=== PATIENT | female | born 1965 | race Caucasian/White ===

== ENCOUNTER 2024-01-14 09:36 | Outpatient (POV) | payer OTHER, SELFPAY ==
[2024-01-14 09:57] VITALS: BP 135/86; PULSE 85; RESP 18; O2SAT 94; BMI 30.2
--- NOTE | 2024-01-14 11:23 | EXP.PAIN.OV ---
HPI Data of Consult Patient: new to practice Consult date: 01/14/24 Requesting Physician: Marcelina Goetz APRN Primary Care Provider: Referral Provider, MD Consult Narrative Reason for consult: Bilateral knee pain History of present illness: Ms. Campoverde is a 58 year old female who presents today as a new patient. She [place] [facility] [place] Today she rates her pain an 8 out of 10. Patient states her pain is all in her bilateral knees with the left being worse than the right. She states this has been going on for at least over a year unrelated to any specific trauma or injury. She does state that she did end up having a left meniscus repair in the past however did not really seem like it has given significant improvement. Patient has tried physical therapy multiple times with her last sessions about 1 to 2 months ago. She states this seemed to make her pain worse as well as chiropractor therapy. She has tried oral medications along with heat and ice and topicals with minimal changes. Patient does state that she has had injections in the past that were cortisone and that these did seem to help somewhat. Patient states has been at least 6 months since she has had these. She states that her insurance was submitted for a gel injection however they would not cover this. Patient does states she is currently on Flexeril and gabapentin and that this really just seems to help her sleep. She does state the pain is constant and interrupts her ability to perform activities of daily living such as cooking and cleaning. Her Braxton has been reviewed and is appropriate. CC: Marcelina Goetz APRN [facility] Disclaimer: The information contained in this section may have been updated after the patient was seen, as this information can be updated by other users. Medical History (Updated 01/14/24 @ 11:26 by Marcelina Goetz APRN) Vitamin D deficiency Vitamin B12 deficiency Diabetes mellitus Osteoporosis Fibromyalgia Migraines Liver disease HTN (hypertension) HLD (hyperlipidemia) GERD (gastroesophageal reflux disease) Chronic kidney disease Arthritis Family History (Updated 01/14/24 @ 10:38 by Janette Dias RN) Other COPD (chronic obstructive pulmonary disease) Diabetes Heart disease Hyperlipidemia Hypertension Lung cancer Social History (Updated 01/14/24 @ 10:41 by Janette Dias RN) Smoking Status: Never smoker alcohol intake: never current occupational status: other Travel in the last 8 weeks: None Review of Systems Review of Systems Review of systems:: pertinent systems reviewed and negative unless documented below Review of systems (narrative): Review of Systems: General: No recent weight changes, no fever, no sleep disturbances Respiratory: No cough, no shortness of air, no recurring pulmonary infections Cardiovascular/peripheral vascular: No chest pain, no palpitations, no edema, no shortness of breath Gastrointestinal: No new onset incontinence, normal bowel movements reported Genitourinary: No new onset incontinence Musculoskeletal: [Bilateral knee pain Psychiatric: [Normal mood/affect] Neurological: [Denies weakness in extremities], [denies balance issues] Meds Home Medications and Allergies Home Medications ?Medication ?Instructions ?Recorded ?Confirmed ?Type aspirin 81 mg chewable tablet 81 mg PO DAILY Blood Thinner 01/14/24 01/14/24 History atorvastatin 20 mg tablet 20 mg PO DAILY Cholesterol 01/14/24 01/14/24 History cyclobenzaprine 10 mg tablet 10 mg PO BID Pain 01/14/24 01/14/24 History diclofenac sodium 1 % topical gel 1 - 2 g topical BID Pain 01/14/24 01/14/24 History duloxetine 60 mg capsule,delayed 60 mg PO DAILY MOOD 01/14/24 01/14/24 History release gabapentin 300 mg capsule 300 mg PO DIRECTED Pain 01/14/24 01/14/24 History hydrochlorothiazide 25 mg tablet 12.5 mg PO DAILY Fluid 01/14/24 01/14/24 History metformin 500 mg tablet,extended 1,000 mg PO DAILY Diabetes 01/14/24 01/14/24 History release 24 hr omeprazole 20 mg capsule,delayed 20 mg PO DAILY STOMACH 01/14/24 01/14/24 History release semaglutide 0.25 mg or 0.5 mg (2 0.25 - 0.5 mg SQ DIRECTED 01/14/24 01/14/24 History mg/3 mL) subcutaneous pen injector Diabetes (Ozempic) New Prescriptions to Start Prescriptions: Allergies Allergy/AdvReac Type Severity Reaction Status Date / Time No Known Allergies Allergy Verified 01/14/24 10:41 Objective Vital signs: Pulse Resp BP Pulse Ox O2 Del Method 85 18 135/86 94 L Room Air 01/14/24 09:57 01/14/24 09:57 01/14/24 09:57 01/14/24 09:57 11/04/24 09:57 Narrative: Physical Exam: General: Alert and oriented x3, no acute distress, pleasant and cooperative Lungs: Respirations even and unlabored, symmetrical chest expansion Eyes: PERRL Musculoskeletal: Flexion and extension of bilateral knees somewhat guarded secondary to pain, [antalgic gait noted] Neurological: Speech clear, no gross sensory deficit Assessment and Plan *Assessment and plan (1) Bilateral knee pain: Status: Acute Qualifiers: Chronicity: chronic Qualified Code(s): M25.561 - Pain in right knee; M25.562 - Pain in left knee; G89.29 - Other chronic pain Category: Medical Code(s): M25.561 - Pain in right knee; M25.562 - Pain in left knee Plan Patient is experiencing significant pain in her bilateral knees with limited range of motion. I did discuss with the patient that we can do additional injection therapy such as the intra-articular injection or infrapatellar nerve blocks. Risk and benefits were discussed with the patient and since she has been about 6 months from having these injections I am recommending we start with the intra-articular. Risk and benefits were discussed with patient and she would like to proceed forward with this plan of care. Patient has tried and failed conservative therapy including chiropractor therapy, physical therapy and continued at home stretching exercise for longer than 12 weeks. Patient will also be ordered a compounded cream. Patient will be scheduled for bilateral intra-articular knee injections. These injections will be done without fluoroscopic guidance or ultrasound. Patient has been instructed to contact the clinic with any concerns before the next appointment. Dr. Sanchez has reviewed this note and agrees with this plan of care. This note was dictated using voice recognition software and make contain errors or omissions. All injections are used with Lidocaine or Bupivacaine and Depo Medrol.
== END 2024-01-14 23:59 | disposition home or self-care (01) ==
PROVIDERS: Visit Provider Nurse Practitioner Family
DX: M25.561 Pain in right knee (principal); M25.562 Pain in left knee; G89.29 Other chronic pain; Z73.89 Other problems related to life management difficulty
CPT/HCPCS: 99202; G0463

== ENCOUNTER 2024-03-25 09:11 | Day surgery (SDC) | payer OTHER, SELFPAY ==
[2024-03-25 09:24] VITALS: BP 184/113; PULSE 67; RESP 18; TEMP 36.8; O2SAT 97; BMI 30.7
--- NOTE | 2024-03-25 09:48 | EXP.PAIN.PRO ---
Procedure Date: 03/25/24 Time: 09:50 Anesthesiologist:: Fritz Rivera CRNA Complications:: None Pre-procedure Diagnosis:: DJD bilateral knee. Chronic bilateral knee pain. Post-procedure Diagnosis:: Same Indications for Procedure:: Patient is a pleasant 58-year-old female who comes our clinic today for bilateral intra-articular knee injections. She describes bilateral knee pain as constant, dull, aching. She rates her pain 8/10. She reports having difficulty with ambulation. Difficulty with flexion and extension. Procedure Details:: Details of the procedure explained to the patient. The patient taken procedure room placed in the sitting position. The over the right knee was cleaned using chlorhexidine as a cleansing solution. Using a 22-gauge inch and half needle the right knee joint was accessed from the anterior lateral position. After negative aspiration 4 cc of 1% lidocaine +4 cc of 0.25% Marcaine and 40 mg of Depo-Medrol was injected. Patient tolerated procedure without difficulty. There are no complications. Details of the procedure explained to the patient. The patient taken procedure room placed in the sitting position. The over the left knee was cleaned using chlorhexidine as a cleansing solution. Using a 22-gauge inch and half needle the left knee joint was accessed from the anterior lateral position. After negative aspiration 4 cc of 1% lidocaine +4 cc of 0.25% Marcaine and 40 mg of Depo-Medrol was injected. Patient tolerated procedure without difficulty. There are no complications. Plan and Disposition:: Patient was discharged without incident.
[2024-03-25] MEDS: BUPIVACAINE 0.25% 10ML INJ 25 MG IJ (09:49)
[2024-03-25 09:50] VITALS: BP 186/99; PULSE 67; RESP 18; O2SAT 96
[2024-03-25] MEDS: LIDOCAINE 1% 5ML PF VIAL 5 ML (09:50)
[2024-03-25] MEDS: methylPREDNISolone ACETATE 80MG/ML VIAL 80 MG (09:50)
[2024-03-25 09:52] VITALS: BP 180/90; PULSE 68; RESP 18; O2SAT 96
[2024-03-25 10:03] VITALS: BP 162/99; PULSE 66; RESP 18; O2SAT 96
== END 2024-03-25 10:03 | disposition home or self-care (01) ==
PROVIDERS: Visit Provider Nurse Anesthetist, Certified Registered
DX: M17.0 Bilateral primary osteoarthritis of knee (principal); M25.561 Pain in right knee; M25.562 Pain in left knee; G89.29 Other chronic pain
CPT/HCPCS: 20610; J1010

== ENCOUNTER 2024-04-07 14:48 | Outpatient (POV) | payer OTHER, SELFPAY ==
[2024-04-07 15:50] VITALS: BP 155/97; PULSE 83; RESP 14; O2SAT 97; BMI 30.7
--- NOTE | 2024-04-07 16:15 | EXP.PAIN.SOA ---
[facility] Disclaimer: The information contained in this section may have been updated after the patient was seen, as this information can be updated by other users. Medical History (Updated 01/14/24 @ 11:26 by Marcelina Goetz APRN) Vitamin D deficiency Vitamin B12 deficiency Diabetes mellitus Osteoporosis Fibromyalgia Migraines Liver disease HTN (hypertension) HLD (hyperlipidemia) GERD (gastroesophageal reflux disease) Chronic kidney disease Arthritis Family History (Updated 01/14/24 @ 10:38 by Janette Dias RN) Other COPD (chronic obstructive pulmonary disease) Diabetes Heart disease Hyperlipidemia Hypertension Lung cancer Social History (Updated 01/14/24 @ 10:41 by Janette Dias RN) Smoking Status: Never smoker alcohol intake: never current occupational status: other Travel in the last 8 weeks: None PM Subjective & Objective Subjective Subjective:: Patient is a pleasant 58-year-old female who presents today for follow-up of bilateral intra-articular knee injections on 03/25/2024. Today she rates her pain a 2 out of 10. She states that she has had at least 90% improvement following these injections and feels like they are still working well. Patient states she has had significant improved function with overall decreased pain. Patient states that she did get the compounded cream and states it did so so however she has not needed to use it since having injections. Her Braxton has been reviewed and is appropriate. Review of Systems: General: No recent weight changes, no fever, no sleep disturbances Respiratory: No cough, no shortness of air, no recurring pulmonary infections Cardiovascular/peripheral vascular: No chest pain, no palpitations, no edema, no shortness of breath Gastrointestinal: No new onset incontinence, normal bowel movements reported Genitourinary: No new onset incontinence Musculoskeletal: Bilateral knee pain Psychiatric: [Normal mood/affect] Neurological: [Denies weakness in extremities], [denies balance issues] Pain at rest (0-10 scale): 2 Objective Objective:: Physical Exam: General: Alert and oriented x3, no acute distress, pleasant and cooperative Lungs: Respirations even and unlabored, symmetrical chest expansion Eyes: PERRL Musculoskeletal: Flexion and extension of bilateral knees somewhat guarded secondary to pain, [antalgic gait noted] Neurological: Speech clear, no gross sensory deficit Has patient had previous pain injection?: Yes Percent improvement in pain since last injection: 90% Conservative treatment options previously tried: Home exercise plan Length of treatment: Longer than 12 weeks Meds Home Medications and Allergies Home Medications ?Medication ?Instructions ?Recorded ?Confirmed ?Type aspirin 81 mg chewable tablet 81 mg PO DAILY Blood Thinner 01/14/24 04/07/24 History atorvastatin 20 mg tablet 20 mg PO DAILY Cholesterol 01/14/24 04/07/24 History cyclobenzaprine 10 mg tablet 10 mg PO BID Pain 01/14/24 04/07/24 History diclofenac sodium 1 % topical gel 1 - 2 g topical BID Pain 01/14/24 04/07/24 History duloxetine 60 mg capsule,delayed 60 mg PO DAILY MOOD 01/14/24 04/07/24 History release gabapentin 300 mg capsule 300 mg PO DIRECTED Pain 01/14/24 04/07/24 History hydrochlorothiazide 25 mg tablet 12.5 mg PO DAILY Fluid 01/14/24 04/07/24 History metformin 500 mg tablet,extended 1,000 mg PO DAILY Diabetes 01/14/24 04/07/24 History release 24 hr omeprazole 20 mg capsule,delayed 20 mg PO DAILY STOMACH 01/14/24 04/07/24 History release semaglutide 0.25 mg or 0.5 mg (2 0.25 - 0.5 mg SQ DIRECTED 01/14/24 04/07/24 History mg/3 mL) subcutaneous pen injector Diabetes (Ozempic) New Prescriptions to Start Prescriptions: Allergies Allergy/AdvReac Type Severity Reaction Status Date / Time No Known Allergies Allergy Verified 01/14/24 10:41 Assessment and Plan *Assessment and plan (1) Bilateral knee pain: Status: Acute Qualifiers: Chronicity: chronic Qualified Code(s): M25.561 - Pain in right knee; M25.562 - Pain in left knee; G89.29 - Other chronic pain Category: Medical Code(s): M25.561 - Pain in right knee; M25.562 - Pain in left knee Plan Patient has had significant improvement and does not require any additional injection therapy at this time. Patient will return to clinic in 6 weeks for reevaluation of symptoms and plan of care. Patient has been instructed to contact the clinic with any concerns before the next appointment. Dr. Sanchez has reviewed this note and agrees with this plan of care. This note was dictated using voice recognition software and make contain errors or omissions. All injections are used with Lidocaine, Bupivacaine and Depo Medrol. Occasionally urine drug screen is needed to verify patient's compliance with our office pain contract. This is ordered based off specific treatments related to chronic pain with the potential to abuse certain medications.
== END 2024-04-07 23:59 | disposition home or self-care (01) ==
LOC: SC.PAIN 14:48
PROVIDERS: PCP Family Medicine; Visit Provider Nurse Practitioner Family
DX: M25.561 Pain in right knee (principal); M25.562 Pain in left knee; G89.29 Other chronic pain
CPT/HCPCS: 99212; G0463

== ENCOUNTER 2024-05-19 09:27 | Outpatient (POV) | payer OTHER, SELFPAY ==
--- NOTE | 2024-05-19 09:56 | A.OFFVIS_ITS ---
[facility] Disclaimer: The information contained in this section may have been updated after the patient was seen, as this information can be updated by other users. Medical History (Updated 05/19/24 @ 09:59 by Marcelina Goetz APRN) Vitamin D deficiency Vitamin B12 deficiency Diabetes mellitus Osteoporosis Fibromyalgia Migraines Liver disease HTN (hypertension) HLD (hyperlipidemia) GERD (gastroesophageal reflux disease) Chronic kidney disease Arthritis Family History (Updated 01/14/24 @ 10:38 by Janette Dias RN) Other COPD (chronic obstructive pulmonary disease) Diabetes Heart disease Hyperlipidemia Hypertension Lung cancer Social History (Updated 01/14/24 @ 10:41 by Janette Dias RN) Smoking Status: Never smoker alcohol intake: never current occupational status: other Travel in the last 8 weeks: None PM Subjective & Objective Subjective Subjective:: Patient is a pleasant 58-year-old female who presents today for increasing pain. She rates her left knee pain a 4 out of 10 but does state that she is having chronic pain in her right shoulder and rates that a 5 out of 10. Patient states this is not a new injury or fall. She states that she has had chronic pain in this joint for longer than 6 months if not more. Patient does state that it is a chronic achy sensation that is worse with increased activity or movement. 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 She states that she was going to rheumatology and having injections and that this did provide significant improvement. She states she cannot raise her arm up past a certain point due to the worsening pain. Patient has tried heat and ice, topicals and at home stretching exercise for longer than 12 weeks. Patient does state that it does pop with certain movements. She is interested in any help we may be able to provide as it is interfering with her ability perform activities of daily living such as cooking and cleaning. Her Braxton has been reviewed and is appropriate. Review of Systems: General: No recent weight changes, no fever, no sleep disturbances Respiratory: No cough, no shortness of air, no recurring pulmonary infections Cardiovascular/peripheral vascular: No chest pain, no palpitations, no edema, no shortness of breath Gastrointestinal: No new onset incontinence, normal bowel movements reported Genitourinary: No new onset incontinence Musculoskeletal: Right shoulder pain Psychiatric: [Normal mood/affect] Neurological: [Denies weakness in extremities], [denies balance issues] Pain at rest (0-10 scale): 5 Objective Objective:: Physical Exam: General: Alert and oriented x3, no acute distress, pleasant and cooperative Lungs: Respirations even and unlabored, symmetrical chest expansion Eyes: PERRL Musculoskeletal: Flexion and extension of right shoulder somewhat guarded secondary to pain, popping noted with arm extension Neurological: Speech clear, no gross sensory deficit Has patient had previous pain injection?: No Conservative treatment options previously tried: Home exercise plan Length of treatment: Longer than 12 weeks Meds Home Medications and Allergies Home Medications ?Medication ?Instructions ?Recorded ?Confirmed ?Type aspirin 81 mg chewable tablet 81 mg PO DAILY Blood Thinner 01/14/24 04/07/24 History atorvastatin 20 mg tablet 20 mg PO DAILY Cholesterol 01/14/24 04/07/24 History cyclobenzaprine 10 mg tablet 10 mg PO BID Pain 01/14/24 04/07/24 History diclofenac sodium 1 % topical gel 1 - 2 g topical BID Pain 01/14/24 04/07/24 History duloxetine 60 mg capsule,delayed 60 mg PO DAILY MOOD 01/14/24 04/07/24 History release gabapentin 300 mg capsule 300 mg PO DIRECTED Pain 01/14/24 04/07/24 History hydrochlorothiazide 25 mg tablet 12.5 mg PO DAILY Fluid 01/14/24 04/07/24 History metformin 500 mg tablet,extended 1,000 mg PO DAILY Diabetes 01/14/24 04/07/24 History release 24 hr omeprazole 20 mg capsule,delayed 20 mg PO DAILY STOMACH 01/14/24 04/07/24 History release semaglutide 0.25 mg or 0.5 mg (2 0.25 - 0.5 mg SQ DIRECTED 01/14/24 04/07/24 History mg/3 mL) subcutaneous pen injector Diabetes (Ozempic) New Prescriptions to Start Prescriptions: Allergies Allergy/AdvReac Type Severity Reaction Status Date / Time No Known Allergies Allergy Verified 01/14/24 10:41 Assessment and Plan *Assessment and plan (1) Right shoulder pain: Status: Acute Category: Medical Code(s): M25.511 - Pain in right shoulder Plan Patient is experiencing worsening pain in her right shoulder with limited range of motion and popping with certain positions. I did discuss with the patient that I do believe she would benefit from a intra-articular shoulder injection. Risk and benefits were discussed with patient and she would like to proceed forward with this plan of care. Patient has had chronic right shoulder pain that is going on for longer than a year and has gotten injections from her environmental remediation consultant in the past that did provide significant relief. She does state that it has probably been at least 7 months since her last injection. We will plan on scheduling the patient for a right intra-articular shoulder injection. This will be done without fluoroscopic or ultrasound guidance. Patient has tried and failed conservative therapy including oral medication, heat and ice, topicals, at home stretching exercise for longer than 12 weeks. I did also discuss with the patient in future we will definitely be planning to repeat her previous knee injections. She does state today that the left knee is starting to have a little bit more pain however the right is still doing well. We will follow-up with this at future visits. Patient has been instructed to contact the clinic with any concerns before the next appointment. Dr. Sanchez has reviewed this note and agrees with this plan of care. This note was dictated using voice recognition software and make contain errors or omissions. All injections are used with Lidocaine, Bupivacaine and Depo Medrol. Occasionally urine drug screen is needed to verify patient's compliance with our office pain contract. This is ordered based off specific treatments related to chronic pain with the potential to abuse certain medications.
[2024-05-19 10:07] VITALS: BP 142/90; BP 144/89; PULSE 66; RESP 14; O2SAT 98; BMI 29.8
== END 2024-05-19 23:59 | disposition home or self-care (01) ==
LOC: SC.PAIN 09:28
PROVIDERS: PCP Family Medicine; Visit Provider Nurse Practitioner Family
DX: M25.511 Pain in right shoulder (principal); Z73.89 Other problems related to life management difficulty
CPT/HCPCS: 99212; G0463

== ENCOUNTER 2024-06-17 09:41 | Day surgery (SDC) | payer OTHER, SELFPAY ==
[2024-06-17 09:50] VITALS: BP 115/79; PULSE 89; RESP 17; TEMP 36.9; O2SAT 98; BMI 30.7
[2024-06-17 10:10] VITALS: BP 115/79; PULSE 89; RESP 18; O2SAT 98
[2024-06-17] MEDS: BUPIVACAINE 0.25% 10ML INJ 25 MG IJ (10:10)
[2024-06-17] MEDS: LIDOCAINE 1% 5ML PF VIAL 5 ML (10:10)
[2024-06-17] MEDS: methylPREDNISolone ACETATE 80MG/ML VIAL 80 MG (10:10)
[2024-06-17 10:12] VITALS: BP 115/79; PULSE 89; RESP 18; O2SAT 98
[2024-06-17 10:33] VITALS: BP 128/82; PULSE 64; RESP 17; O2SAT 97
--- NOTE | 2024-06-17 12:44 | EXP.PAIN.PRO ---
Procedure Date: 06/17/24 Time: 09:45 Anesthesiologist:: Fritz Rivera CRNA Complications:: None Pre-procedure Diagnosis:: DJD right shoulder. Chronic right shoulder pain. Post-procedure Diagnosis:: Same. Indications for Procedure:: Patient very pleasant 58-year-old female who comes our clinic today for right intra-articular shoulder injection. Patient describes her right shoulder pain as constant, dull, aching. Patient has 5/5 strength in the right arm. However, limited range of motion secondary to right shoulder pain. She rates her pain 7/10. Patient also reports left knee pain that is constant, dull, sharp, stabbing. She reports meniscal repair several years ago in the left knee. She reports responding very well to intra-articular cortisone in the left knee in the past. However, it has been 6 to 12 months since her last injection in the left knee. Patient has been through several rounds of physical therapy for the left knee pain. Home exercise program. NSAIDs. Acetaminophen. I recommend repeat injection in the left knee of intra-articular cortisone and local anesthetic. Patient wishes to proceed. Procedure Details:: Procedure Details: Right shoulder intra-articular injection Informed consent was obtained risk and benefits of the procedure were explained to the patient. Patient was taken to the procedure room. The right shoulder was prepped using ChloraPrep. A 25-gauge needle was used posteriorly to inject 10 mL bupivacaine 0.25% and Depo-Medrol 40 mg. Patient tolerated procedure well with no complications. Plan and Disposition:: Patient was discharged without incident.
== END 2024-06-17 10:33 | disposition home or self-care (01) ==
LOC: SC.PAINP 09:42
PROVIDERS: PCP Family Medicine; Visit Provider Nurse Anesthetist, Certified Registered
DX: M19.011 Primary osteoarthritis, right shoulder (principal); M25.511 Pain in right shoulder; G89.29 Other chronic pain
CPT/HCPCS: 20610; J1010

== ENCOUNTER 2024-06-30 10:23 | Outpatient (POV) | payer OTHER, SELFPAY ==
--- NOTE | 2024-06-30 11:00 | A.OFFVIS_ITS ---
[facility] Disclaimer: The information contained in this section may have been updated after the patient was seen, as this information can be updated by other users. Medical History (Updated 06/30/24 @ 11:02 by Marcelina Goetz APRN) Vitamin D deficiency Vitamin B12 deficiency Diabetes mellitus Osteoporosis Fibromyalgia Migraines Liver disease HTN (hypertension) HLD (hyperlipidemia) GERD (gastroesophageal reflux disease) Chronic kidney disease Arthritis Family History Other COPD (chronic obstructive pulmonary disease) Diabetes Heart disease Hyperlipidemia Hypertension Lung cancer Social History Smoking Status: Never smoker alcohol intake: never current occupational status: other Travel in the last 8 weeks: None PM Subjective & Objective Subjective Subjective:: Patient is a pleasant 68-year-old female who presents today for follow-up of right intra-articular shoulder injection on 06/17/2024. Patient does rate her pain today 7 out of 10. She does state that she thought that she was getting a left knee injection today and is a little upset based off what she was told. Patient does state that she had at least 80% improvement with the shoulder injection and rates that pain a 2 out of 10 today and states it is doing really well. She does state the 7 out of 10 pain is all related to her left knee. She describes this as an aching, throbbing sensation that is worse with increased ambulation or activity. She states the knee is interfering with her ability to perform activities of daily living such as cooking and cleaning. Patient has had her left knee injected in the past that did provide significant relief and would like to get scheduled for this procedure soon as possible. Patient has continued at home stretching exercise for longer than 12 weeks with no additional changes. Patient has also continued oral medication, heat and ice and topicals including the compounded cream. Her Braxton has been reviewed and is appropriate. Review of Systems: General: No recent weight changes, no fever, no sleep disturbances Respiratory: No cough, no shortness of air, no recurring pulmonary infections Cardiovascular/peripheral vascular: No chest pain, no palpitations, no edema, no shortness of breath Gastrointestinal: No new onset incontinence, normal bowel movements reported Genitourinary: No new onset incontinence Musculoskeletal: Left knee pain Psychiatric: [Normal mood/affect] Neurological: [Denies weakness in extremities], [denies balance issues] Pain at rest (0-10 scale): 7 Objective Objective:: Physical Exam: General: Alert and oriented x3, no acute distress, pleasant and cooperative Lungs: Respirations even and unlabored, symmetrical chest expansion Eyes: PERRL Musculoskeletal: Flexion and extension of left knee somewhat guarded secondary to pain, [antalgic gait noted] Neurological: Speech clear, no gross sensory deficit Has patient had previous pain injection?: Yes Percent improvement in pain since last injection: 80% Conservative treatment options previously tried: Home exercise plan Length of treatment: Longer than 12 weeks Meds Home Medications and Allergies Home Medications ?Medication ?Instructions ?Recorded ?Confirmed ?Type aspirin 81 mg chewable tablet 81 mg PO DAILY Blood Thinner 01/14/24 06/17/24 History atorvastatin 20 mg tablet 20 mg PO DAILY Cholesterol 01/14/24 06/17/24 History cyclobenzaprine 10 mg tablet 10 mg PO BID Pain 01/14/24 06/17/24 History diclofenac sodium 1 % topical gel 1 - 2 g topical BID Pain 01/14/24 06/17/24 History duloxetine 60 mg capsule,delayed 60 mg PO DAILY MOOD 01/14/24 06/17/24 History release gabapentin 300 mg capsule 300 mg PO DIRECTED Pain 01/14/24 06/17/24 History hydrochlorothiazide 25 mg tablet 12.5 mg PO DAILY Fluid 01/14/24 06/17/24 History metformin 500 mg tablet,extended 1,000 mg PO DAILY Diabetes 01/14/24 06/17/24 History release 24 hr omeprazole 20 mg capsule,delayed 20 mg PO DAILY STOMACH 01/14/24 06/17/24 History release semaglutide 0.25 mg or 0.5 mg (2 0.25 - 0.5 mg SQ DIRECTED 01/14/24 06/17/24 History mg/3 mL) subcutaneous pen injector Diabetes (Ozempic) New Prescriptions to Start Prescriptions: Allergies Allergy/AdvReac Type Severity Reaction Status Date / Time No Known Allergies Allergy Verified 06/17/24 09:49 Assessment and Plan *Assessment and plan (1) Left knee pain: Status: Acute Category: Medical Code(s): M25.562 - Pain in left knee Plan Patient is experiencing worsening pain in her left knee with limited range of motion. I did review over with the patient the risk and benefits of repeat intra-articular injection. Patient would like to proceed forward with this plan of care. Patient had her last bilateral knee injections in March that did provide 90% improvement and have worked well up until the last week. She does state that her right knee is still doing wonderful overall and it is just the left giving increased pain. Patient will be scheduled for repeat left knee intra-articular injection. This will be done without fluoroscopic or ultrasound guidance. Patient has continued conservative treatment including oral medication, heat and ice, topicals, at home stretching exercise for longer than 12 weeks. Patient has had chronic knee pain for longer than 6 months. Patient has been instructed to contact the clinic with any concerns before the next appointment. Dr. Sanchez has reviewed this note and agrees with this plan of care. This note was dictated using voice recognition software and make contain errors or omissions. All injections are used with Lidocaine, Bupivacaine and Depo Medrol. Occasionally urine drug screen is needed to verify patient's compliance with our office pain contract. This is ordered based off specific treatments related to chronic pain with the potential to abuse certain medications.
[2024-06-30 12:01] VITALS: BP 117/78; PULSE 70; RESP 18; O2SAT 97; BMI 30.4
== END 2024-06-30 23:59 | disposition home or self-care (01) ==
LOC: SC.PAIN 10:24
PROVIDERS: PCP Family Medicine; Visit Provider Nurse Practitioner Family
DX: M25.562 Pain in left knee (principal); Z73.89 Other problems related to life management difficulty
CPT/HCPCS: 99212; G0463

== ENCOUNTER 2024-07-29 10:06 | Day surgery (SDC) | payer OTHER, SELFPAY ==
[2024-07-29 10:15] VITALS: BP 140/83; PULSE 72; RESP 16; TEMP 36.6; O2SAT 98; BMI 31.3
[2024-07-29] MEDS: LIDOCAINE 1% 5ML PF VIAL 5 ML (10:23)
[2024-07-29] MEDS: BUPIVACAINE 0.25% 10ML INJ 25 MG IJ (10:23)
[2024-07-29] MEDS: DEXAMETHASONE 10MG/ML 1ML VIAL 10 MG (10:23)
[2024-07-29 10:24] VITALS: BP 143/87; PULSE 68; RESP 18; O2SAT 96
[2024-07-29 10:27] VITALS: BP 143/87; PULSE 68; RESP 18; O2SAT 96
--- NOTE | 2024-07-29 10:30 | EXP.PAIN.PRO ---
Procedure Date: 07/29/24 Time: 10:25 Anesthesiologist:: Fritz Rivera CRNA Complications:: None Pre-procedure Diagnosis:: DJD left knee. Chronic left knee pain. Post-procedure Diagnosis:: Same. Indications for Procedure:: Patient is a very pleasant 58-year-old female comes our clinic today for a left intra-articular knee injection of cortisone local anesthetic. Patient describes left knee pain as constant, dull, aching. She has difficulty with ambulation due to left knee pain. She reports responding well to intra-articular cortisone injections in the past. She rates her pain 7/10. Procedure Details:: Details of the procedure explained to the patient. The patient taken procedure room placed in the sitting position. The over the left knee was cleaned using chlorhexidine as a cleansing solution. Using a 22-gauge inch and half needle the left knee joint was accessed from the anterior lateral position. After negative aspiration 4 cc of 1% lidocaine +4 cc of 0.25% Marcaine and 40 mg of Depo-Medrol was injected. Patient tolerated procedure without difficulty. There are no complications. Plan and Disposition:: Patient was discharged without incident.
[2024-07-29 10:40] VITALS: BP 137/70; PULSE 69; RESP 16; O2SAT 98
== END 2024-07-29 10:40 | disposition home or self-care (01) ==
PROVIDERS: PCP Family Medicine; Visit Provider Nurse Anesthetist, Certified Registered
DX: M17.12 Unilateral primary osteoarthritis, left knee (principal); M25.562 Pain in left knee; G89.29 Other chronic pain
CPT/HCPCS: 20610; J1100

== ENCOUNTER 2024-08-18 14:34 | Outpatient (POV) | payer OTHER, SELFPAY ==
--- OUTSIDE RECORDS SUMMARY | 2024-07-17 11:00 | XMS_ITS | Encounter Summary ---
Author Organization [place] [address] Care Team Providers Care Repair Servicer Name Role Phone Moise Mares MD Primary Care Provider [phone] Yu Mullen MD Unavailable [phone] Reason for Visit * Reason Comments Numbness exp more burning and numbness in feet,was seen by a pain doctor Encounter Details Date Type Department Care Team (Late st Contact Info) Description 07/17/2024 11:00 AM EDT Office Visit SEP Neurology [facility] [address] [place] [address] Wendi Villalta MD [id number] [place] [address] Neuropathy (Primary Dx) Social History Tobacco Use Types Packs/Day Years Used Date Smoking Tobacco: Never Passive Smoke Exposure: Never Smokeless Tobacco: Never Tobacco Cessation:Counseling Given: Not Answered Alcohol Use Standard Drinks/Week Comments Not Currently 0 (1 standard drink = 0.6 oz pur e alcohol) < 1x/mo Overall Financial Resource Strain (CARDIA) Answe r Date Recorded How hard is it for you to pa y for the very basics like food, housing, medical care, and heating? Not hard at all 08/22/2021 PHQ-2 Answer Date Recorded PHQ-2 Total Score 0 05/19/2024 [employer] - Occupational Stress Questionnaire Answer Date Recorded Do you feel stress - tense, restless, nervous, or anxious, or unable to sleep at night because your mind is troubled all the time - these days? To some extent 08/22/2021 Exercise Vital Sign Answer Date Recorde d On average, how many days pe r week do you engage in moderate to strenuous exercise (like a brisk walk)? 0 days 08/22/2021 On average, how many minutes do you engage in exercise at this level? 0 min 08/22/2021 Hunger Vital Sign Answer Date Recorded Within the past 12 months, y ou worried that your food would run out before you got the money to buy more. Never true 08/23/19 22 Within the past 12 months, t he food you bought just didn't last and you didn't have money to get more. Never true 08/22/2021 PRAPARE - Transportation Answer Date Re corded In the past 12 months, has l ack of transportation kept you from medical appointments or from getting medications? No 08/10 In the past 12 months, has l ack of transportation kept you from meetings, work, or from getting things needed for daily living? No 08/22/2021 Sexually Active Control Partners Comments Not Currently Male Comments No Sex and Gender Information Value Date Recorded Sex Assigned at Not on file Legal Sex Female 11:19 PM EDT Gender Identity Not on file Sexual Orientation Not on file documented as of this encounter Last Filed Vital Signs Vital Sign Reading Time Taken Comments Blood Pressure 140/90 07/17/2024 10:45 AM EDT Pulse 70 07/17/2024 10:45 AM EDT Temperature 36.5 C (97.7 F) 07/17/2024 10:45 AM EDT Respiratory Rate - - Oxygen Saturation 95% 07/17/2024 10:45 AM EDT Inhaled Oxygen Concentration - - Weight 90.3 kg (199 lb) 07/17/2024 10:45 AM EDT Height 167.6 cm (5' 6 ) 07/17/2024 10:45 AM EDT Body Mass Index 32.12 07/17/2024 10:45 AM EDT documented in this encounter Functional Status * Is the person deaf or does he/she have serious difficulty hearing? Answer Date of Assessment Author No 11/02/2021 9:50 AM EDT Ernesto Bourgeois LPN * Is the person blind or does he/she have serious difficulty seeing even when wearing glasses? Answer Date of Assessment Author No 11/02/2021 9:50 AM Ernesto Randall LPN * Does this person have serious difficulty walking or climbing stairs? Answer Date of Assessment Author No 11/02/2021 9:50 AM Ernesto Randall LPN * Does this person have difficulty dressing or bathing? Answer Date of Assessment Author No 11/02/2021 9:50 AM Ernesto Randall LPN * Because of a physical, mental or emotional condition, does this person have difficulty doing errands alone such as visiting a doctor's office or shopping? Answer Date of Assessment Author No 11/02/2021 9:50 AM Ernesto Randall LPN documented as of this encounter Mental Status * Because of a physical, mental or emotional condition, does this person have serious difficulty concentrating, remembering or making decisions? Answer Entry Date Author No 11/02/2021 9:50 AM Ernesto Randall LPN documented in this encounter Ordered Prescriptions Prescription Sig Dispense Quantity Refills Last Filled Start Date End Date pregabalin (LYRICA) 100 mg Oral CapsuleIndications :Neuropathy Take 1 Capsule by mouth 2 times daily. 60 Capsule 1 07/17/2024 5 pregabalin (LYRICA) 75 mg Oral CapsuleIndications :Neuropathy Take 1 Capsule by mouth 2 times daily for 7 days. 14 Capsule 07/17/2024 5 pregabalin (LYRICA) 50 mg Oral CapsuleIndications :Neuropathy Take 1 Capsule by mouth 2 times daily for 7 days. 14 Capsule 07/17/2024 5 pregabalin (LYRICA) 25 mg Oral CapsuleIndications :Neuropathy Take 1 Capsule by mouth 2 times daily for 7 days. 14 Capsule 07/17/2024 5 documented in this encounter Progress Notes * Wendi Villalta MD - 07/17/2024 11:00 AM EDT History of Presenting Illness Rosario Campoverde is a 58 y.o. female who presents to clinic with a chief complaint of paresthesias. She presented to clinic for routine follow up. Prior History: She reported that around 2018 she began noticing an aching sensation in the lower extremities. She reports that since then she has had progression of the same aching sensation, as well as burning [id number] in the same distribution. She reports that the sensation occurs throughout her lower extremities. She notes that the burning/tingling sensation is worse at night and often transfer from sleeping. She reports that often she will have a stomach sensation but is unable to feel her feet appropriately, she is also had a fall with a significant wrist fracture requiring surgery. She denies any other focal neurologic deficits including vision changes, language issues or paresthesias in the face. She denies any focal motor weakness. She does note that she has pain in her jaw when opening her mouth, but she is waiting to see a dentist for evaluation. She underwent preliminary evaluation for neuropathy, with TSH and B12 within normal limits. Howeverzena was found to have an A1c elevated a 7.1. She reported that both her parents had a history of diabetes and she is tested frequently for this condition. She reports that currently she is just usingdiet to control her A1c and has not started medication. She reports that she has never been on medic ation for neuropathy. She reports that this pain is worse in the evenings, there is no improvement with movement. She does note that alcohol seems to make the pain worse, she stopped drinking alcohol approximately 2 yearsago due to the worsening of the burning pain in her lower extremities. She notes that she initiallythought this was due to walking around his hand hard floors, and so she switched her fall, however these sensations have persisted. PRIOR WORKUP: NCS Summary: Normal left peroneal and tibial motor responses. Normal left sural and superficial peroneal sensory responses. EMG Summary: Normal needle electrode examination of the left lower extremity. MRI of the lumbar spine was performed and did not reveal any significant degenerative disc disease,personal review there was no evidence of focal cord stenosis or compression. 08/23/22 Overall she reports that neuropathy has been relatively unchanged. She continues to take gabapentinwith no significant side effects. She does report that for the most part it has improved pain although she does occasionally have breakthrough pain and it is not completely resolved. She also reportsthat occasionally she has muscle spasms at night. Of note recent A1c was 7.8. 08/29/23 She broke her right foot last August and is just now feeling back to normal. She has been having a lot of pain in her left foot to the point it hurts to touch it. Because she broke her right foot, she doesn't feel as much of the pins and needles feeling in her foot. At the last visit, GBP was increased, which she felt like made the pain better but some days are still really bad. She is now having cramping in both feet as well. The cramping occurs at night about 3x per week and will wake her up. She has been drinking more water to help the cramping. It has been occurring for about six months. She was started Jaurdiance about a year ago. Her A1c is now 6.8. Of note she was also trialed on Ozempic however due to insurance issues this had to be discontinued however she had a positive effectof the weight loss approximately 20 pounds while on the medication. She completed neuropsych testing since last visit for her memory concerns and was told it was related to depression and anxiety. She denies any depression or anxiety symptoms. She is still getting lost when driving at times, has difficulty remembering things (like leaving the stove on), and is struggling to focus. Per review of Dr. Cuadra's report, saw no indication for Alzheimer disease in my evaluation but hertest results did reflect some mild cognitive impairment that is consistent with mild-moderate cerebrovascular disease which is evident on prior brain imaging. While depression and anxiety can also inand of themselves resulting in some impairment to attention/concentration/short-term memory, neither the patient's test profile more her presentation are consistent with a pure psychogenic cause to her memory complaints. I discussed with the patient that cognitive impairment due to cerebrovascular disease is considered one of the progressive conditions associated with aging but, unlike Alzheimer's disease, the associated cognitive decline is rather unpredictable. Therefore, it is important thatshe adopt a healthy lifestyle to minimize the risk of further progression of the cerebrovascular disease. Interval history Since her last visit she feels that she is having slightly more paresthesias which Does Not Control. Does Report Significant Fatigue Related to the Current Dose of Gabapentin. Additionally she has followed up with orthopedics and had surgery on her right ankle, she was back to work within 6 weeks and she is doing very well. She is also established with a pain clinic. She got first injection and plans to follow-up in approximately 2 weeks. Past Medical History: Diagnosis Date Arthritis Chronic kidney disease (CKD) Stage 3 Encounter for blood transfusion Heartburn Hyperlipidemia Hypertension Liver disease Migraines Neuromuscular disorder (HCC) fibromyalgia/polyarthralgia Osteoporosis Post-operative nausea and vomiting Sometimes nausea Small fiber neuropathy est'd with Neuro/Dr Villalta On gabapentin Type 2 diabetes mellitus with hyperglycemia, without long-term current use of insulin (HCC) dx'd 10/2020 Vitamin B12 deficiency Vitamin D deficiency Current Outpatient Medications Medication Sig Dispense Refill alendronate (FOSAMAX) 70 mg Oral Tablet Take 1 Tablet by mouth every 7 days. See admin instructions. 12 Tablet 3 aspirin 81 mg Oral Tablet, Chewable Take 1 Tablet by mouth daily. 30 Tablet 11 atorvastatin (LIPITOR) 20 mg Oral Tablet TAKE 1 TABLET BY MOUTH EVERY DAY 100 Tablet 2 Blood Sugar Diagnostic Misc Strip 1 Strip by Mis.(Non-Drug; Combo Route) route daily. 100 Each 2 cholecalciferol, vitamin D3, 1,000 unit Oral Tablet Take 1 Tab by mouth daily. cyanocobalamin 1,000 mcg tablet Take 1 Tab by mouth daily. 2 cyclobenzaprine (FLEXERIL) 10 mg Oral Tablet TAKE 1 TABLET BY MOUTH TWICE A DAY 180 Tablet 1 dapagliflozin propanediol (FARXIGA) 10 mg Oral Tablet Take 1 Tablet by mouth daily. 90 Tablet 3 diclofenac (VOLTAREN) 1 % Top Gel Apply 2 g topically 2 times daily. DULoxetine (CYMBALTA) 60 mg Oral Capsule, Delayed Release(E.C.) TAKE 1 CAPSULE BY MOUTH EVERY DAY 90 Capsule 0 gabapentin (NEURONTIN) 300 mg Oral Capsule Take 3 Capsules by mouth 2 times daily. 180 Capsule 0 hydroCHLOROthiazide 25 mg Oral Tablet Take 0.5 Tablets by mouth daily. 45 Tablet 0 ibuprofen (ADVIL;MOTRIN) 800 mg Oral Tablet Take 1 Tablet by mouth 3 times daily as needed. 90 Tablet 0 Insulin [place], Disposable, (BD ULTRA-FINE MINI PEN NEEDLE) 31 gauge x 3/16 Mis Needle Subcutaneous (Inject under the skin) 1 Applicator once a week. 30 Each 2 Lancets Mis Misc 1 Each by Mis.(Non-Drug; Combo Route) route daily. 100 Each 2 lisinopriL (PRINIVIL;ZESTRIL) 20 mg Oral Tablet tablet Take 1 Tablet by mouth daily. 90 Tablet 3 metFORMIN (GLUCOPHAGE XR) 500 mg Oral ER 24 hr tablet Take 2 Tablets by mouth 2 times daily (with meals). 360 Tablet 3 omeprazole (PRILOSEC) 20 mg Oral Capsule, Delayed Release(E.C.) TAKE 1 CAPSULE BY MOUTH EVERY DAY 90 Capsule 2 tirzepatide (MOUNJARO) 2.5 mg/0.5 mL SubQ Pen Injector Subcutaneous (Inject under the skin) 2.5 mg once a week. 2 mL 11 No current facility-administered medications for this visit. Social History Socioeconomic History Marital status: Spouse name: Not on file Number of children: Not on file Years of education: Not on file Highest education level: Not on file Occupational History Not on file Tobacco Use Smoking status: Never Passive exposure: Never Smokeless tobacco: Never Vaping Use Vaping status: Never Used Substance and Sexual Activity Alcohol use: Not Currently Comment: < 1x/mo Drug use: No Sexual activity: Not Currently Partners: Male Other Topics Concern Not on file Social History Narrative Not on file Social Drivers of Health Financial Resource Strain: Low Risk (08/22/2021) Overall Financial Resource Strain (CARDIA) Difficulty of Paying Living Expenses: Not hard at all Food Insecurity: No Food Insecurity (08/22/2021) Hunger Vital Sign Worried About Running Out of Food in the Last Year: Never true Ran Out of Food in the Last Year: Never true Transportation Needs: No Transportation Needs (08/22/2021) PRAPARE - Transportation Lack of Transportation (Medical): No Lack of Transportation (Non-Medical): No Physical Activity: Inactive (08/22/2021) Exercise Vital Sign Days of Exercise per Week: 0 days Minutes of Exercise per Session: 0 min Stress: Stress Concern Present (08/22/2021) [employer] - Occupational Stress Questionnaire Feeling of Stress : To some extent Social Connections: Not on file Intimate Partner Violence: Not on file Housing Stability: Not on file Review of Systems Negative except as per HPI Physical Exam Vitals: 07/17/24 1045 BP: 140/90 Pulse: 70 Temp: 97.7 ??F (36.5 ??C) SpO2: 95% General Appearance: This is a well appearing patient, not in distress. HEENT: There are no facial dysmorphic features. SKIN: There is no stigmata for neurocutaneous disorders. Lungs: Nonlaboured breathing, symmetric chest expansion Heart: No central or peripheral cyanosis NEUROLOGICAL EXAMINATION: MENTAL STATUS: Alert and oriented, no dysarthria or aphasia CRANIAL NERVES: Pupils 4mm, equal and reactive to light bilaterally. EOMI. Face symmetric. MOTOR: Strength: RUE: 5/5, RLE: 5/5, LUE: 5/5, LLE: 5/5. Tone is normal, bulk is symmetric. SENSORY: Diminished temperature sensation to mid galvez bilaterally of the lower extremities, slightly diminished vibration at the ankle when compared to the knee, right ankle difficult to assess due to recent surgical intervention and fusion Reflexes diminished throughout but symmetric Assessment and Plan: Rosario Campoverde is a 58 y.o. female who presents to clinic with a chief complaint of paresthesias. She presented for routine follow-up At her initial appointment, She reported progression of aching/burning/pins and needle sensation inher lower extremities since 2018, that appear worse in the evening, and are triggered by any type of fabric touching her lower extremities. General preliminary work-up for neuropathy including TSH, and B12 which were within normal limits, however A1c was elevated. She did have abnormal light chains, she is evaluated by hematology who felt that she had MGUS. She continues to follow with hematology as well as rheumatology. EMG and nerve conduction studies were within normal limits. MRI of the lumbar spine showed no evidence of degenerative disc disease, cord compression or neural foraminal compromise. Based on her history and her clinical exam, it is most consistent with small fiber neuropathy, likely related to underlying diabetesand potentially MGUS. Plan -Given that she is having breakthrough discomfort we discussed transitioning off gabapentin decreasing by 300 mg twice daily every 7 days until off, and initiating pregabalin 25 mg twice daily with up titration to clinical effect, stop at 100 mg twice daily, she will notify the clinic should she have any issues -Continue follow-up with pain clinic, hematology as well as rheumatology -Continue to work with PCP on glycemic control Neuropsychological testing showed vascular changes which have been noted previously on MRI of the brain. No definitive neurodegenerative process was evident on testing. She underwent an MRI in 2013 which was reported as atrophy and small vessel disease images unavailable for review. B12, folic acid, TSH, anti-TPO all been unremarkable. We did discuss optimization of vascular risk factors including aspirin 81 mg once daily. She was encouraged to continue strict glycemic control, along with exercise and a healthy diet Wendi Villalta MD This note was generated using voice recognition technology. It has been reviewed by the undersigned, however, may still contain unintended errors. documented in this encounter Miscellaneous Notes * Patient Instructions - Selin Navarro MA - 07/17/2024 11:00 AM EDT Medication change: Decrease Gabapentin by 1 tablet (300 mg) BID every 7 days until off Week 1- Decrease to 600 mg ( 2 capsule) by mouth twice a day for 7 days Week 2- Decrease to 300 mg ( 1 capsule) by mouth twice a day for 7 days and then stop Pregabalin Week 1 - 25 mg by mouth twice a day for 7 days Week 2- 50 mg by mouth twice a day for 7 days Week 3- 75 mg by mouth twice a day for 7 days Week 4- Goal dose of 100 mg by mouth twice a day documented in this encounter Plan of Treatment Not on file documented as of this encounter Goals Goal Patient Goal Type Associated Problems Recent Progress Patient-Stated? Author Blood Pressure < 140/90 Blood Pressure 140/90(2024 10:45 AM EDT) No Candice Allen LPN Maintain a healthy diet, exercise regularly and maintain an ideal body weight General No Candice Allen LPN BMI (Calculated) < 30 General 32.2(07/18/19 10:45 AM EDT) No Carol Ng MD Not going more than 4-5 hours without eating General On track( 2:44 PM EDT) No Selin Escoto RN Eat within 1-2 hours of waking General On track( 2:44 PM EDT) No Selin Escoto, GENO Keeping carbs at 30-45g per meal, 15g per snack General On track( 2:44 PM EDT) No Selin Escoto RN Check fasting glucose daily and document Lifestyle On track( 022 2:44 PM EDT) No Selin Escoto RN HEMOGLOBIN A1C < 7.0 Result Component 7.3( 5 3:53 PM EDT) No Carol Ng MD documented as of this encounter Visit Diagnoses Diagnosis Neuropathy- Primary Mononeuritis of unspecified site documented in this encounter Discontinued Medications Medication Sig Discontinue Reason Start Date End Da te gabapentin (NEURONTIN) 300 mg Oral CapsuleIndications:Neur opathy Take 3 Capsules by mouth 2 times daily. Cancelled by 06/30/2024 07/17/2024 documented as of this encounter Care Teams Repair Servicer Relationship Specialty Start Date End Date Moise Mares MD [address] [place] [address] [place] [id number] PCP - General Family Medicine 07/10/22 Yu Mullen MD [address] [place] [id number] Medical Oncologist Internal Medicine-Hematology and Oncology 08/07/23 documented as of this encounter
--- OUTSIDE RECORDS SUMMARY | 2024-08-18 14:49 | XMS_ITS | Encounter Summary ---
Author Organization [place] [address] Care Team Providers Care Mold Release Worker Name Role Phone Carol Ng MD Primary Care Provider [phone] Selin Escoto RN Unavailable Unavailable Moise Mares MD Primary Care Provider [phone] uY Mullen MD Unavailable [phone] Encounter Details Date Type Department Care Team (Late st Contact Info) Description 05/01/2019 Orders Only SEP Gastro CV [address] [facility] [address] [place] [address] Justin Delaney MD [address] [place] [address] Social History Tobacco Use Types Packs/Day Years Used Date Smoking Tobacco: Never Smokeless Tobacco: Never Alcohol Use Standard Drinks/Week Comments Yes 0 (1 standard drink = 0.6 oz pur e alcohol) < 1x/mo PHQ-2 Answer Date Recorded PHQ-2 Score 0 08/02/2018 Sexually Active Control Partners Comments Yes Male Comments No Sex and Gender Information Value Date Recorded Sex Assigned at Not on file Legal Sex Female 11:19 PM EDT Gender Identity Not on file Sexual Orientation Not on file documented as of this encounter Functional Status * Is the person deaf or does he/she have serious difficulty hearing? Answer Date of Assessment Author No 05/20/2018 2:12 PM EDT Sunshine Levine LPN * Is the person blind or does he/she have serious difficulty seeing even when wearing glasses? Answer Date of Assessment Author No 05/20/2018 2:12 PM EDT Sunshine Levine LPN * Does this person have serious difficulty walking or climbing stairs? Answer Date of Assessment Author No 05/20/2018 2:12 PM EDT Sunshine Levine LPN * Does this person have difficulty dressing or bathing? Answer Date of Assessment Author No 05/20/2018 2:12 PM EDT Sunshine Levine LPN * Because of a physical, mental or emotional condition, does this person have difficulty doing errands alone such as visiting a doctor's office or shopping? Answer Date of Assessment Author No 05/20/2018 2:12 PM EDT Sunshine Levine LPN documented as of this encounter Mental Status * Because of a physical, mental or emotional condition, does this person have serious difficulty concentrating, remembering or making decisions? Answer Entry Date Author No 05/20/2018 2:12 PM EDT Olimpia Levine LPN documented in this encounter Plan of Treatment Not on file documented as of this encounter Goals Goal Patient Goal Type Associated Problems Recent Progress Patient-Stated? Author Blood Pressure < 140/90 Blood Pressure 140/90(2024 10:45 AM EDT) Candice Little LPN Maintain a healthy diet, exercise regularly and maintain an ideal body weight General No Candice Allen LPN documented as of this encounter Procedures Procedure Name Priority Date/Time Associated Diagnosis Comments [facility] COLONOSCOPY Routine 05/01/2019 8:30 AM EST documented in this encounter Results * [facility] COLONOSCOPY (05/01/2019 8:30 AM EST) 05/01/2019 8:30 AM EST Impressions [facility] - 05/01/2019 8:54 AM EST Polyps (2 mm to 4 mm) in the splenic flexure. (Polypectomy). Internal and external hemorrhoids. Plan: Await pathology results Colonoscopy in 5 or 10 years depending on pathology results. This section is an excerpt of the full report. us Justin Todd MD GI PROCEDURE ORDERABLES Fi nal Result [facility] [address] [place], [place] [id number] documented in this encounter Visit Diagnoses Not on filedocumented in this encounter Care Teams Mold Release Worker Relationship Specialty Start Date End Date Carol Ng MD PCP - General 07/08/10 07/09/22 Moise Mares MD [address] [place] [address] [place] [address] PCP - General Family Medicine 07/10/22 Selin Escoto, RN Conversion Man 08/22/21 12/29/21 Yu Mullen MD [address] [place] [id number] Medical Oncologist Internal Medicine-Hematology and Oncology 08/07/23 documented as of this encounter
--- OUTSIDE RECORDS SUMMARY | 2024-08-18 14:49 | XMS_ITS | Clinical Summary ---
Author Organization Healthcare Address [address] [place] [address] Care Team Providers Care Neurourologist Name Role Phone Pcp, No Primary Care Provider Unavailabl e Medications atorvastatin (Lipitor) 20 MG tablet Take 1 tablet (20 mg) by mouth 1 (one) time each day. 4 Active ASPIRIN 81 MG chewable tablet Chew 1 tablet (81 mg) 1 (one) time each day. 4 Active metFORMIN XR (Glucophage-XR) 500 MG 24 hr tablet Take 2 tablets (1,000 mg) by mouth. 4 Active gabapentin (Neurontin) 300 MG capsule Take 3 capsules (900 mg) by mouth twice a day. 4 Active empagliflozin (Jardiance) 25 MG Take 1 tablet (25 mg) by mouth 1 (one) time each day. 4 Active cyclobenzaprine (Flexeril) 10 MG tablet Take 1 tablet (10 mg) by mouth twice a day. 4 Active cholecalciferol (Vitamin D-[address]) 25 MCG (1000 UT) tablet Take 1 tablet (1,000 Units) by mouth 1 (one) time each day. Active lisinopril 20 MG tablet Take 1 tablet (20 mg) by mouth 1 (one) time each day. 4 Active omeprazole (PriLOSEC) [address] capsule Take 1 capsule (20 mg) by mouth 1 (one) time each day. 4 Active diclofenac (Voltaren) 1 % topical gel Place 1-2 g on the skin 2 (two) times a day. Apply as directed to bilateral knee 150 g 11 09/10/202 4 Active Social History Tobacco Use Types Packs/Day Years Used Date Smoking Tobacco: Never Smokeless Tobacco: Never Tobacco Cessation:Counseling Given: Not Answered Alcohol Use Standard Drinks/Week Comments Never 0 (1 standard drink = 0.6 oz pur e alcohol) Comments Unknown Sex and Gender Information Value Date Recorded Sex Assigned at Not on file Legal Sex Female 11:07 AM EDT Gender Identity Not on file Sexual Orientation Not on file Last Filed Vital Signs Vital Sign Reading Time Taken Comments Blood Pressure 118/84 11/20/2023 9:43 AM EDT Pulse 68 11/20/2023 9:43 AM EDT Temperature - - Respiratory Rate - - Oxygen Saturation 97% 11/20/2023 9:43 AM EDT Inhaled Oxygen Concentration - - Weight 92.1 kg (203 lb 0.7 oz) 11/20/2023 9:43 A M EDT Height - - Body Mass Index - - Plan of Treatment Health Maintenance Due Date Last Done Comments [facility]-Depression Screening 1965 [facility]-HIV Screening 1965 [facility]-Hepatitis C Screening 1965 [facility]-/Child/Adol SDOH Screenings 1965 [facility]- SDOH Screenings 12/26/1981 [facility]-Adult SDOH Screenings 12/26/1981 [facility]-Pap Smear 12/26/1984 [facility]-Cervical Cancer Screening 12/26/1993 [facility]-HPV/Cotest 12/26/1993 CT Colonography 12/26/2008 Colonoscopy 12/26/2008 FIT-DNA 12/26/2008 FIT 12/26/2008 FOBT 12/26/2008 Sigmoidoscopy 12/26/2008 [facility]-Colorectal Cancer Screening 12/26/2008 [facility]-Zoster Vaccines (1 of 2) 12/26/2013 [id number] Vaccine ( season) 2023 11/28/2022, 02/01/2021, 06/01/2020, Additional history exists [facility]-Breast Cancer Screening 03/13/202404/2022, 03/13/2022, 01/11/2021, Additional history exists [facility]-Influenza Vaccine (Season Ended) 2024 11/28/2022, 11/16/2021, 02/01/2021, Additional history exists [facility]-DTaP,Tdap,and Td Vaccines (3 - Td or Tdap) 10/14/2033 10/15/2023, 08/20/2013 [facility]-RSV Vaccine: 60+ Years or (1 - 1-dose 75+ series) 12/26/2038 [facility]-Pneumococcal Vaccine: 50+ Years Completed 10/15/2023, 11/16/2020, 11/30/2010 HPV Vaccines Aged Out No longer eligi ble based on patient's age to complete this topic [facility]-HIB Vaccines Aged Out No longer e ligible based on patient's age to complete this topic [facility]-Hepatitis A Vaccines Aged Out No longer eligible based on patient's age to complete this topic [facility]-IPV Vaccines Aged Out No longer e ligible based on patient's age to complete this topic [facility]-Rotavirus Vaccines Aged Out No lo nger eligible based on patient's age to complete this topic Insurance [facility] Care Teams Neurourologist Relationship Specialty Start Date End Date Pcp, [place] [address] PCP - General Family Medicine 11/20/23
--- OUTSIDE RECORDS SUMMARY | 2024-08-18 14:49 | XMS_ITS | Clinical Summary ---
Author Organization [facility] Address [address] [place] [address] Phone Care Team Providers Care Er Manager Name Role Phone Moise Mares MD Primary Care Provider Yu Mullen MD Unavailable [phone] Allergies No known active allergies Medications * This document contains information received from the source organization and may not represent a complete record from that organization. cyanocobalamin 1,000 mcg tabletIndications: Vitamin B12 deficiency Take 1 Tab by mouth daily. 2 08/21/19 14 Active cholecalciferol, vitamin D3, 1,000 unit Oral Tablet Take 1 Tab by mouth daily. Active Lancets [facility] MiscIndications:Ne wly diagnosed diabetes (HCC) 1 Each by [facility].(Non-Drug; Combo Route) route daily. 100 Each 2 11/17/19 21 Active Blood Sugar Diagnostic [facility] StripIndications:N ewly diagnosed diabetes (HCC) 1 Strip by [facility] [place].(Non-Drug; Combo Route) route daily. 100 Each 2 11/17/19 21 Active lisinopriL (PRINIVIL;ZESTRIL) 20 mg Oral Tablet tabletIndications: Type 2 diabetes mellitus with hyperglycemia, without long-term current use of insulin (HCC),Essential hypertension,Stage 3 chronic kidney disease, unspecified whether stage 3a or 3b CKD (HCC) Take 1 Tablet by mouth daily. 90 Tablet 3 07/11/19 23 Active ibuprofen (ADVIL;MOTRIN) 800 mg Oral Tablet Take 1 Tablet by mouth 3 times daily as needed. 90 Tablet 09/29/19 23 Active Insulin Vaughan, Disposable, (BD ULTRA-FINE MINI PEN NEEDLE) 31 gauge x 3/16 [facility] [place] NeedleIndications: Type 2 diabetes mellitus with hyperglycemia, without long-term current use of insulin (HCC) Subcutaneous (Inject under the skin) 1 Applicator once a week. 30 Each 2 03/30/19 24 Active aspirin 81 mg Oral Tablet, Chewable Take 1 Tablet by mouth daily. 30 Tablet 11 08/29/19 24 Active omeprazole (PRILOSEC) 20 mg Oral Capsule, Delayed Release(E.C.)Indic ations:Gastroesoph ageal reflux disease, unspecified whether esophagitis present TAKE 1 CAPSULE BY MOUTH EVERY DAY 90 Capsule 2 10/02/19 24 Active metFORMIN (GLUCOPHAGE XR) 500 mg Oral ER 24 hr tabletIndications: Type 2 diabetes mellitus with hyperglycemia, without long-term current use of insulin (HCC) Take 2 Tablets by mouth 2 times daily (with meals). 360 Tablet 3 10/16/19 24 Active DULoxetine (CYMBALTA) 60 mg Oral Capsule, Delayed Release(E.C.)Indic ations:Fibromyalgi a,Primary osteoarthritis involving multiple joints TAKE 1 CAPSULE BY MOUTH EVERY DAY 90 Capsule 10/22/19 24 Active hydroCHLOROthiazid e 25 mg Oral TabletIndications: Essential hypertension Take 0.5 Tablets by mouth daily. 45 Tablet 11/05/19 24 Active diclofenac (VOLTAREN) 1 % Top Gel Apply 2 g topically 2 times daily. Active cyclobenzaprine (FLEXERIL) 10 mg Oral TabletIndications: Fibromyalgia,Prima ry osteoarthritis involving multiple joints TAKE 1 TABLET BY MOUTH TWICE A DAY 180 Tablet 1 03/13/19 25 Active alendronate (FOSAMAX) 70 mg Oral TabletIndications: Age-related osteoporosis without current pathological fracture Take 1 Tablet by mouth every 7 days. See admin instructions. 12 Tablet 3 03/27/19 25 Active atorvastatin (LIPITOR) 20 mg Oral TabletIndications: Type 2 diabetes mellitus with hyperglycemia, without long-term current use of insulin (HCC),Family history of coronary artery disease TAKE 1 TABLET BY MOUTH EVERY DAY 100 Tablet 2 04/09/19 25 Active dapagliflozin propanediol (FARXIGA) 10 mg Oral TabletIndications: Type 2 diabetes mellitus with hyperglycemia, without long-term current use of insulin ([facility]),Stage 3a chronic kidney disease (HCC) Take 1 Tablet by mouth daily. 90 Tablet 3 05/20/19 25 Active pregabalin (LYRICA) 100 mg Oral CapsuleIndications :Neuropathy Take 1 Capsule by mouth 2 times daily. 60 Capsule 1 07/18/19 25 Active tirzepatide (MOUNJARO) 5 mg/0.5 mL SubQ Pen InjectorIndication s:Type 2 diabetes mellitus with hyperglycemia, without long-term current use of insulin ([facility]) Inject 5 mg under the skin once a week. 2 mL 2 08/16/19 25 Active pregabalin (LYRICA) 25 mg Oral CapsuleIndications :Neuropathy Take 1 Capsule by mouth 2 times daily for 7 days. 14 Capsule 07/18/19 25 025 pregabalin (LYRICA) 50 mg Oral CapsuleIndications :Neuropathy Take 1 Capsule by mouth 2 times daily for 7 days. 14 Capsule 07/18/19 25 025 pregabalin (LYRICA) 75 mg Oral CapsuleIndications :Neuropathy Take 1 Capsule by mouth 2 times daily for 7 days. 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, right, with nonunion, subsequent encounter 01/24/2023 Arthritis of right foot 01/24/2023 Age-related osteoporosis wit hout current pathological fracture 01/22/2023 Gastroesophageal reflux disease without esophagi tis 07/10/2022 Fatty liver 02/02/2021 Overview (02/02/2021): Seen on 2019 U/S Small fiber neuropathy 02/01/2021 Overview (02/01/2021): est'd with Neuro/Dr Villalta On gabapentin Stage 3a chronic kidney disease 11/16/2020 Assessment & Plan (05/19/2024 3:46 PM EDT): Orders: BASIC METABOLIC PANEL; Future dapagliflozin propanediol (FARXIGA) 10 mg Oral Tablet; Take 1 Tablet by mouth daily. Type 2 diabetes mellitus wit h hyperglycemia, without long-term current use of insulin 10/27/2020 Overview (10/27/2020): dx'd 10/2020 Assessment & Plan (05/19/2024 3:46 PM EDT): Orders: HEMOGLOBIN A1C; Future MICROALBUMIN/CREATININE RATIO URINE; Future LIPID SCREEN; Future BASIC METABOLIC PANEL; Future dulaglutide (TRULICITY) 1.5 mg/0.5 mL SubQ Pen Injector; Subcutaneous (Inject under the skin) 0.5 mL once a week. dapagliflozin propanediol (FARXIGA) 10 mg Oral Tablet; Take 1 Tablet by mouth daily. Essential hypertension 07/18/2017 Assessment & Plan (05/19/2024 3:46 PM EDT): At goal today Vitamin D deficiency 07/18/2017 Family history of coronary artery disease 2012 Overview (02/13/2019): Pt's mom ([place]ABG) , dad ([place]), and brother ([place]) Pt with neg nuclear GXT 08/2012 Neg GTX/echo 02/2019 Vitamin B12 deficiency 07/08/2010 Migraines 07/08/2010 Non morbid obesity due to excess calories 2010 Resolved Problems Problem Noted Date Diagnosed Date Resolved Date Right foot pain 01/24/2023 10/15/2023 Numbness and tingling in left arm 12/08/2013 12/11/2013 Speech disturbance 12/08/2013 4 Shingles outbreak 12/08/2013 04/19/2015 Pyelonephritis, acute 03/02/20122012 Encounters Date Type Department Care Team Description 08/15/2024 Refill SEP [facility] MICHAEL [address] [place] [phone] Moise Mares MD Medication Refill 07/31/2024 Orders Only SEP [facility] [address] [place] [phone] Moise Mares MD Type 2 diabetes mellitus with hyperglycemia, without long-term current use of insulin (HCC) (Primary Dx) 07/29/[address] [place] [address] Moise Mares MD Medication Refill 07/17/2024 11:00 AM EDT Office Visit [facility] [place] [facility] [address] [place] [address] Wendi Villalta MD Neuropathy (Primary Dx) 07/17/2024 Orders Only [facility] [place] [address] [place] [address] Selin Navarro MA Neuropathy 07/16/2024 Travel 07/16/[address] [place] [address] Moise Mares MD Medication Refill 07/11/2024 Orders Only [address] [place] [address] Moise Mares MD Type 2 diabetes mellitus with hyperglycemia, without long-term current use of insulin (HCC) (Primary Dx) 07/10/2024 Orders Only [address] [place] [address] Moise Mares MD Type 2 diabetes mellitus with hyperglycemia, without long-term current use of insulin (HCC) (Primary Dx) 06/27/2024 Refill [place] [address] [place] [address] Shonda Jeter MD Medication Refill 06/23/2024 Orders Only [address] [place] [address] Moise Mares MD Type 2 diabetes mellitus with hyperglycemia, without long-term current use of insulin (HCC) (Primary Dx) 06/23/2024 Orders Only [address] [place] [address] Moise Mares MD 05/19/2024 3:45 PM EDT Office Visit [address] [place] [phone] Moise Mares MD Type 2 diabetes mellitus with hyperglycemia, without long-term current use of insulin (HCC) (Primary Dx); Stage 3a chronic kidney disease (HCC); Essential hypertension from Last 3 Months Immunizations Immunization Administration Dates Next Due Hepatitis B (Recombinant), Adjuvanted 09/05/2021 ,11/16/2020 Influenza Seasonal Injectable PF 12/07/2013 Influenza Vaccine, Unspecifi ed Formulation 11/16/2021,12/02/2019,03/27/2017,03/02 Influenza Virus Vaccine Quad rivalant, Flublok 02/01/2021 LAST MANUFACTURED 2011-Pneum ococcal Conjugate 7 Valent 11/30/2010 Moderna SARS-CoV-2 Booster V accine 18+ Yrs (Light Blue Border) 02/01/2021 Moderna SARS-CoV-2 Vaccine 1 2+ Yrs (Light blue border) 06/01/2020,05/04/2020 Pfizer SARS-CoV-2 Vaccine Tr is-sucrose 12+ Yrs 11/28/2022 Pneumococcal Conjugate Vacci ne 20 Valent 10/15/2023 Pneumococcal Polysaccharide 23 Valent 11/16/2020 Tdap 10/15/2023,08/20/2013 Zoster Recombinant 02/04/2020 Surgical History Surgery Date Site/Laterality Comments ROBLES AND BSO 03/12/1996 - 03/11/1997 uterine tear; has one ovary left WRIST FRACTURE SURGERY 11/07/2016 Wrist/Right RIGHT DISTAL RADIUS OPEN REDUCTION INTERNAL FIXATION AND CLOSED TREATMENT OF ULNA FRACTURE; Surgeon: Fabio Aquino MD; Location: [facility]IN [facility]; Service: Orthopedics Medical devices from this surgery are in the Medical Devices section. WRIST CLOSED REDUCTION 11/07/2016 Wrist/Right Surgeon: Fabio Aquino MD; Location: [facility]; Service: Orthopedics Medical devices from this surgery are in the Medical Devices section. KNEE ARTHROSCOPY 03/31/2019 Knee/Right RIGHT KNEE ARTHROSCOPY, PARTIAL MEDIAL MENISCECTOMY; Surgeon: Bladimir Watt MD; Location: [facility] OR; Service: Orthopedics KNEE ARTHROSCOPY 09/29/2019 Knee/Left LEFT KNEE ARTHROSCOPY, PARTIAL MEDIAL MENISCECTOMY; Surgeon: Bladimir Watt MD; Location: [facility]; Service: Orthopedics ARTHRODESIS 02/16/2023 Foot/Ankle/Right Right foot subtalar joint arthrodesis; Surgeon: Moise Anglin DPM; Location: [facility] MA[facility] OR; Service: Orthopedics Medical devices from this surgery are in the Medical Devices section. Medical History Medical History Date Comments Vitamin B12 deficiency Migraines Hypertension Vitamin D deficiency Arthritis Type 2 diabetes mellitus wit h hyperglycemia, without long-term current use of insulin (HCC) dx'd 10/2020 Small fiber neuropathy est'd wit h Neuro/Dr Villalta On gabapentin Hyperlipidemia Liver disease Heartburn Osteoporosis Neuromuscular disorder (HCC) fib romyalgia/polyarthralgia Encounter for blood transfusion Post-operative nausea and vomiting Sometimes nausea Chronic kidney disease (CKD) Sta ge 3 Family History Medical History Relation Name Comments Diabetes Brother Jamie Heart Attack Brother Jamie Heart Disease Brother Jamie CABG Diabetes Father Heart Disease Father [place] as complica tion after lung surgery High Blood Pressure Father High Cholesterol Father Lung Cancer Father Diabetes Mother Heart Disease Mother CABG x 3 High Blood Pressure Mother High Cholesterol Mother Breast Cancer Paternal Aunt 1 Breast Cancer Paternal Aunt 2 Breast Cancer Paternal Aunt 3 Breast Cancer Paternal Aunt 4 Hypertension Sister 1 Verna Anesth Problems Neg Hx Relation Name Status Comments Brother Jamie Alive Father (Age 65) Maternal Grandfather Maternal Grandmother Mother (Age 65) [place] Paternal Aunt 1 Paternal Aunt 2 Alive Paternal Aunt 3 Alive Paternal Aunt 4 Alive Paternal Grandfather Paternal Grandmother Sister 1 Verna Alive Sister 2 Jessica Alive Sister 3 Angela Alive Social History Tobacco Use Types Packs/Day Years [...] Date Recorded PHQ-2 Total Score 0 05/19/2024 [facility] of Occupat ional Health - Occupational Stress [...] on file Sexual Orientation Not on file Obstetrics History Para Term AB IAB SAB Ectopic Multiple Livin g Live Births 4 Last Filed Vital Signs Vital Sign Reading Time Taken Comments Blood Pressure 140/90 07/17/2024 10:45 AM EDT Pulse 70 07/17/2024 10:45 AM EDT Temperature 36.5 C (97.7 F) 07/17/2024 10:45 AM EDT Respiratory Rate 18 05/19/2024 3:30 PM EDT Oxygen Saturation 95% 07/17/2024 10:45 AM EDT Inhaled Oxygen Concentration - - Weight 90.3 kg (199 lb) 07/17/2024 10:45 AM EDT Height 167.6 cm (5' 6 ) 07/17/2024 10:45 AM EDT Body Mass Index 32.12 07/17/2024 10:45 AM EDT Plan of Treatment Health Maintenance Due Date Last Done Comments Cologuard 12/26/2008 FIT 12/26/2008 Sigmoidoscopy 12/26/2008 Virtual Colonography 12/26/2008 Zoster (2 of 2) 03/31/2020 02/04/2020 COVID-19 Vaccine (5 - 2023-2 5 season) 2023 11/28/2022, 02/01/2021, 06/01/2020, Additional history exists RSV or 60+ (1 - Ris k 60-74 years 1-dose series) 2023 Annual Wellness Exam 10/14/2024 10/15/2023 Influenza Vaccine (Season Ended) 2024 11/28/2022, 11/16/2021, 02/01/2021, Additional history exists Hemoglobin A1c 11/19/2024 05/19/2024, 1 , 10/15/2023, Additional history exists Lipids 05/19/2025 05/19/2024, 031 , 10/15/2023, Additional history exists Microalbuminuria 05/19/2025 05/19/2024, 12/2024, 10/15/2023, Additional history exists Diabetic Eye Exam 10/14/2025 10/15/2023, 10/20/2021 Breast Cancer Screening 03/24/2026 03/24/19, 03/13/2022, 03/13/2022, Additional history exists Colon Cancer Screening 05/01/2029 Colonoscopy 05/01/2029 05/01/2019, 01/11, 01/30/2007 DTaP/TDaP/Td (3 - Td or Tdap) 10/14/2033 10/15/2023, 08/20/2013 Hepatitis C Screening Completed 08/26/2021, 018 Hepatitis B Vaccine Completed 09/05/2021, Pneumococcal Vaccine 50+ Completed 024, 11/16/2020, 11/30/2010 Meningococcal B Vaccine Aged Out No l onger eligible based on patient's age to complete this topic Goals Goal Patient Goal Type Associated Problems Recent Progress Patient-Stated? Author Blood Pressure < 140/90 Blood Pressure 140/90(2024 10:45 AM EDT) No Candice Allen LPN Maintain a healthy diet, exercise regularly and maintain an ideal body weight General No Candice Allen LPN BMI (Calculated) < 30 General 32.2(07/18/19 25 10:45 AM EDT) No Carol Ng MD Not going more than 4-5 hours without eating General On track( 2:44 PM EDT) No Selin Escoto RN Eat within 1-2 hours of waking General On track( 2:44 PM EDT) No Selin Escoto RN Keeping carbs at 30-45g per meal, 15g per snack General On track( 2:44 PM EDT) No Selin Escoto RN Check fasting glucose daily and document Lifestyle On track( 2:44 PM EDT) No Selin Escoto RN HEMOGLOBIN A1C < 7.0 Result Component 7.3( 5 3:53 PM EDT) No Carol Ng MD Medical Devices Implanted Type Area [employer] Device Identifier Shelf Expiration Date Model / Serial / Lot Plate Volar Intermediate Right 10 Hole Extra Short - [id number] Implanted:Qty: 1 on 11/07/2016 by Fabio Aquino MD at [facility] Right: Wrist DIANA:ORTHOPED ICS [id number] / / Screw Locking Thread 2.7mm/L16mm - [id number] Implanted:Qty: 1 on 11/07/2016 by Fabio Aquino MD at [facility] Right: Wrist DIANA:ORTHOPED ICS [id number] / / Screw Locking Full Thread T8 2.7 Mm X L18 Mm - [id number] Implanted:Qty: 1 on 11/07/2016 by Fabio Aquino MD at [facility] Right: Wrist DIANA:ORTHOPED ICS [id number] / / Screw Locking T8 Full Thread 2.8mm/L20mm - [id number] Implanted:Qty: 2 on 11/07/2016 by Fabio Aquino MD at [facility] Right: Wrist DIANA:ORTHOPED ICS [id number] / / Screw Bone T8 Full Thread 2.7 Mm X L14 Mm - [id number] Implanted:Qty: 1 on 11/07/2016 by Fabio Aquino MD at [facility] Right: Wrist DIANA:ORTHOPED ICS [id number] / / Bone Screw T8 Full Thread 2.7mm/L16mm - [id number] Implanted:Qty: 2 on 11/07/2016 by Fabio Aquino MD at [facility] Right: Wrist DIANA:ORTHOPED ICS [id number] / / Bone Screw T8 Full Thread 2.7mm/L20mm - [id number] Implanted:Qty: 1 on 11/07/2016 by Fabio Aquino MD at [facility] Right: Wrist DIANA:ORTHOPED ICS [id number] / / Screw Bone Fixos Titanium Short Thread L70 Mm Od7 Mm Midfoot - [id number] Implanted:Qty: 2 on 02/16/2023 by Moise Anglin DPM at [facility] Right: Foot DIANA:ORTHOPED ICS [id number] / / Kit Augment Injectable 3.0cc - [id number] Implanted:Qty: 1 on 02/16/2023 by Moise Anglin DPM at [facility] Right: Foot [employer] MED GRP:[employer] TECH 07/07/2025 [id number] / / [id number] Graft Bone Putty Tensix Dbm Crush Mix 2.5cc Prehydrated W/ C - [id number] Implanted:Qty: 1 on 02/16/2023 by Moise Anglin DPM at [facility] Right: Foot HOLMAN MED GRP:[employer] TECH 05/10/2023 [id number] / / [id number] Procedures Procedure Name Priority Date/Time Associated Diagnosis Comments BASIC METABOLIC PANEL Routine 05/19/2024 3:53 PM EDT Type 2 diabetes mellitus with hyperglycemia, without long-term current use of insulin (HCC) Stage 3a chronic kidney disease (HCC) LIPID SCREEN Routine 05/19/2024 3:53 PM EDT Type 2 diabetes mellitus with hyperglycemia, without long-term current use of insulin (HCC) HEMOGLOBIN A1C Routine 05/19/2024 3:53 PM EDT Type 2 diabetes mellitus with hyperglycemia, without long-term current use of insulin (HCC) MICROALBUMIN/CREATIN INE RATIO URINE Routine 05/19/2024 3:42 PM EDT Type 2 diabetes mellitus with hyperglycemia, without long-term current use of insulin (HCC) MM MAMMO DIGITAL DANK SCREEN BILAT Routine 03/24/2024 10:23 AM EST Encounter for screening mammogram for breast cancer HM DIABETES EYE EXAM Routine 10/20/2021 ACUTE HEPATITIS PANEL Routine 08/26/2021 10:10 AM EDT Myalgia GMED COLONOSCOPY Routine 05/01/2019 8:30 AM EST from Last 3 Months or Most Recently Relevant to Health Maintenance Results * (ABNORMAL) HEMOGLOBIN A1C (05/19/2024 3:53 PM EDT) Hgb A1C 7.3(H) 4.2 - 5.6 % 05/19/2024 9:35 PM EDT [employer] Est. Avg Glucose 163 mg/dL 05/19/2024 9:35 PM EDT [facility] Blood VENOUS BLOOD / Unknown Venipuncture / Unknown 05/19/2024 3:53 PM EDT 05/19/2024 3:53 PM EDT Narrative [employer] - 05/19/2024 9:35 PM EDT REFERENCE RANGE: Normal: 4.0-5.6% Pre-diabetes: 5.7-6.4% Provisional diagnosis of diabetes: >6.4% Hgb F>10% and anything which shortens red cell survival, such as hemolytic anemia, or unstable hemoglobin variants such as HbSS, HbSC, or HbCC, will lower the HbA1c value associated with a given level of glycemic control. us Moise Mares MD CHEMISTRY ORDERABLES Final Res ult Performing Organization Address City/[facility]/ZIP Co de Phone Number [facility] [employer] [facility] [address] , [place] [address] [facility] [address] [place], [place] [id number] * LIPID SCREEN (05/19/2024 3:53 PM EDT) [facility] Cholesterol 120 <200 mg/dL 05/19/2024 9:04 PM EDT [employer] Comment: < 200 Desirable 200 - 239 Borderline High >= 240 High Triglyceride 141 <150 mg/dL 05/19/2024 9:04 PM EDT [employer] Comment: < 150 Normal 150 - 199 Borderline High 200 - 499 High >= 500 Very High HDL 43 >=40 mg/dL 05/19/2024 9:04 PM EDT [employer] Comment: > 60 Optimal 40 - 60 Acceptable < 40 Low LDL Calculated 53 <100 mg/dL 05/19/2024 9:04 PM EDT [employer] Comment: < 100 Optimal 100 - 129 Near or above optimal 130 - 159 Borderline High 160 - 189 High >= 190 Very High The National Institutes of Health (NIH) equation is used for all lipid panels that report calculated LDL (LDL-C). Non-HDL-C Calculated 77 <=129 mg/dL 05/19/2024 9:04 PM EDT [employer] Comment: <130 Desirable 130-159 Above Desirable 160-189 Borderline High 190-219 High >= 220 Very High Fasting Specimen? No None 025 9:04 PM EDT [facility] Blood VENOUS BLOOD / Unknown Venipuncture / Unknown 05/19/2024 3:53 PM EDT 05/19/2024 3:53 PM EDT us Moise Mares MD CHEMISTRY ORDERABLES Final Res ult [facility] [place], [facility] [address] [place] [address] [facility] [address] [place] [address] * (ABNORMAL) BASIC METABOLIC PANEL (05/19/2024 3:53 PM EDT) Sodium 141 136 - 145 mmol/L 05/19/2024 9:04 PM EDT [facility] Potassium 4.0 3.5 - 5.0 mmol/L 05/19/2024 9:04 PM EDT [facility] Chloride 105 98 - 107 mmol/L 05/19/2024 9:04 PM EDT [facility] Total CO2 24 22 - 29 mmol/L 05/19/2024 9:04 PM EDT [facility] Anion Gap 12 7 - 16 mmol/L 05/19/2024 9:04 PM EDT [facility] Calcium 9.3 8.8 - 10.4 mg/dL 05/19/2024 9:04 PM EDT [facility] Glucose Lvl 113(H) 70 - 99 mg/dL 05/19/2024 9:04 PM EDT [facility] BUN 12 8 - 23 mg/dL 05/19/2024 9:04 PM EDT [facility] Creatinine 1.03 0.51 - 1.30 mg/dL 05/19/2024 9:04 PM EDT [facility] eGFR (CKD-EPIcr 2020) 62 >=60 mL/min/1.7 3 m2 05/19/2024 9:04 PM EDT [facility] Comment:Estimated GFR was ca lculated using the CKD-EPIcr (2020) equation refit without race. The equation is recommended by the National Kidney Foundation - [place] [employer] of Nephrology Task Force. Blood VENOUS BLOOD / Unknown Venipuncture / Unknown 05/19/2024 3:53 PM EDT 05/19/2024 3:53 PM EDT us Moise Mares MD CHEMISTRY ORDERABLES Final Res ult [facility] [address] , [place] [address] * MICROALBUMIN/CREATININE RATIO URINE (05/19/2024 3:42 PM EDT) Urine Microalb 46.5 mg/L 05/19/2024 10:25 PM EDT [facility] Urine Creatinine 154.0 mg/dL 05/19/2024 10:25 PM EDT [facility] Ur Microalb/Creat 30 0 - 30 mg/g 05/19/2024 10:25 PM EDT [facility] Urine STRUCTURE OF URINARY TRACT PROPER / Unknown 05/19/2024 3:42 PM EDT 05/19/2024 3:42 PM EDT us Moise Mares MD URINE ORDERABLES Final Result [facility] [place] [address] [facility] [address], [place] [address] [facility] [address] [place] [address] * (ABNORMAL) MM MAMMO DIGITAL DANK SCREEN BILAT (03/24/2024 10:23 AM EST) Anatomical Region Laterality Modality Breast Bilateral Mammography 03/24/2024 10:2 3 AM EST Impressions 03/25/2024 9:32 AM EST Incomplete: Need additional imaging evaluation ([id number]) RECOMMENDATION: Additional Imaging Breast Ultrasound Right COMMENTS: Narrative 03/25/2024 9:32 AM EST EXAM: MM MAMMO DIGITAL DANK SCREEN BILAT EXAM DATE: 03/24/2024 10:23 AM INDICATION: Z12.31-Encounter for screening mammogram for malignant neoplasm of [id number] COMPARISON STUDIES: Compared with prior studies, the most recent being 03/13/2022 MM MAMMO DIGITAL DANK DIAGN BILAT at [facility] 01/11/2021 MM MAMMO DIGITAL DANK SCREEN BILAT at [facility] 08/07/2017 MM MAMMO DIGITAL SCREENING W CAD BILAT at [facility] TISSUE DENSITY: There are scattered areas of fibroglandular density. FINDINGS: There is an oval circumscribed 8 mm mass in the lower inner quadrant right breast. There are no internal microcalcifications or associated distortion. There is no mammographic evidence of malignancy in the left breast. Procedure Note Manuela Finnegan MD - 03/25/2024 EXAM: MM MAMMO DIGITAL DANK SCREEN BILAT EXAM DATE: 03/24/2024 10:23 AM INDICATION: Z12.31-Encounter for screening mammogram for malignantneoplasm of [id number]-CM COMPARISON STUDIES: Compared with prior studies, the most recent being 03/13/2022 MM MAMMO DIGITAL DANK DIAGN BILAT at [facility] 01/11/2021 MM MAMMO DIGITAL DANK SCREEN BILAT at [facility] 08/07/2017 MM MAMMO DIGITAL SCREENING W CAD BILAT at [facility] TISSUE DENSITY: There are scattered areas of fibroglandular density. FINDINGS: There is an oval circumscribed 8 mm mass in the lower innerquadrant right breast. There are no internal microcalcifications or associated distortion. There is no mammographic evidence of malignancy in the leftbreast. IMPRESSION: Incomplete: Need additional imaging evaluation ([id number]) RECOMMENDATION: Additional Imaging Breast Ultrasound Right COMMENTS: Moise Mares MD IMG MAMMOGRAPHY ORDERABLES Fin al Result * DIABETES EYE EXAM (10/20/2021) Left Diabetic Retinopathy Not Present Present/Not Present SEP OFFICE Right Diabetic Retinopathy Not Present Present/Not Present SEP OFFICE Historical Provider HEALTH MAINTENANCE Final Res ult SEP OFFICE * ACUTE HEPATITIS PANEL (08/26/2021 10:10 AM EDT) Hep Bs Ag Non-Reacti ve Non-Reacti ve 08/26/2021 3:14 PM EDT [facility] Hep B Core IgM Non-Reacti ve Non-Reacti ve 08/26/2021 3:14 PM EDT [facility] Hep A IgM Non-Reacti ve Non-Reacti ve 08/26/2021 3:14 PM EDT [facility] Hep C Ab Non-Reacti ve Non-Reacti ve 08/26/2021 3:14 PM EDT [facility] Blood VENOUS BLOOD / Unknown Venipuncture / Unknown 08/26/2021 10:10 AM EDT 08/26/2021 10:10 AM EDT Carol Ng MD CHEMISTRY ORDERABLES Final Resu lt Performing Organization Address [facility] Co de Phone Number [facility] [address] [facility], [place] [address] * GMED COLONOSCOPY (05/01/2019 8:30 AM EST) 05/01/2019 8:30 AM EST Impressions [facility] - 05/01/2019 8:54 AM EST Polyps (2 mm to 4 mm) in the splenic flexure. (Polypectomy). Internal and external hemorrhoids. Plan: Await pathology results Colonoscopy in 5 or 10 years depending on pathology results. This section is an excerpt of the full report. Justin Todd MD GI PROCEDURE ORDERABLES Fi nal Result Performing Organization Address [facility] de Phone Number [facility] [address] [place] [address] from Last 3 Months or Most Recently Relevant to Health Maintenance [place] [address] [address] GENERIC WORKERS' COMP GENERIC WORKERS' COMP WORKERS' COMP GENERIC WORKERS[employer] COMP Advance Directives For more information, please contact: [phone] * Full Code (Latest Code Status on File) Date Activated Date Inactivated Comments 03/02/2012 6:18 AM 03/04/2012 3:12 PM Care Teams Er Manager Relationship Specialty Start Date End Date Moise Mares MD [address] [place] [address] [place] [address] PCP - General Family Medicine 07/10/22 Yu Mullen MD [address] [place] [address] Medical Oncologist Internal Medicine-Hematology and Oncology 08/07/23
--- OUTSIDE RECORDS SUMMARY | 2024-08-18 14:49 | XMS_ITS | Encounter Summary ---
Author Organization [place] [address] Care Team Providers Care Counter Roller Name Role Phone Moise Mares MD Primary Care Provider [phone] Yu Mullen MD Unavailable [phone] Encounter Details Date Type Department Care Team (Late st Contact Info) Description 06/23/2024 Orders Only SEP Mac [address] [place] [address] Moise Mares MD [address] [place] [address] [place] [address] Type 2 diabetes mellitus with hyperglycemia, without long-term current use of insulin (HCC) (Primary Dx) Social History Tobacco Use Types Packs/Day Years Used Date Smoking Tobacco: Never Passive Smoke Exposure: Never Smokeless Tobacco: Never Alcohol Use Standard Drinks/Week Comments Not Currently 0 (1 standard drink = 0.6 oz pur e alcohol) < 1x/mo Overall Financial Resource Strain (CARDIA) Answe r Date Recorded How hard is it for you to pa y for the very basics like food, housing, medical care, and heating? Not hard at all 08/22/2021 PHQ-2 Answer Date Recorded PHQ-2 Total Score 0 05/19/2024 [facility] [place] of Occupat ional Health - Occupational Stress [...] 11/02/2021 9:50 AM Ernesto Randall LPN * Is the person blind or [...] Entry Date Author No 11/02/2021 9:50 AM EDT Ernesto Bourgeois LPN documented in this encounter Ordered Prescriptions Prescription Sig Dispense Quantity Refills Last Filled Start Date End Date tirzepatide (MOUNJARO) 2.5 mg/0.5 mL SubQ Pen InjectorIndicatio ns:Type 2 diabetes mellitus with hyperglycemia, without long-term current use of insulin (HCC) Subcutaneous (Inject under the skin) 2.5 mg once a week. 2 mL 5 06/23/2024 documented in this encounter Plan of Treatment Not on file documented as of this encounter Goals Goal Patient Goal Type Associated Problems Recent Progress Patient-Stated? Author Blood Pressure < 140/90 Blood Pressure 140/90(2024 10:45 AM EDT) No Candice Allne LPN Maintain a healthy diet, exercise regularly [...] as of this encounter Visit Diagnoses Diagnosis Type 2 diabetes mellitus with hyperglycemia, without long-term current use of insulin (HCC)- Primary documented in this encounter Discontinued Medications Medication Sig Discontinue Reason Start Date End Da te dulaglutide (TRULICITY) 1.5 mg/0.5 mL SubQ Pen InjectorIndications:T ype 2 diabetes mellitus with hyperglycemia, without long-term current use of insulin (HCC) Subcutaneous (Inject under the skin) 0.5 mL once a week. Cancelled by 05/19/2024 06/23/2024 documented as of this encounter Care Teams Counter Roller Relationship Specialty Start Date End Date Moise Mares MD [address] [place] [address] [address] [place], [place] [id number] PCP - General Family Medicine 07/10/22 Yu Mullen MD [address] [place] [address] [place] [id number] Medical Oncologist Internal Medicine-Hematology and Oncology 08/07/23 documented as of this encounter
--- OUTSIDE RECORDS SUMMARY | 2024-08-18 14:49 | XMS_ITS | Encounter Summary ---
Author Organization [place] [address] Care Team Providers Care Water Supervisor Name Role Phone Carol Ng MD Primary Care Provider [phone] Selin Escoto RN Unavailable Unavailable Moise Mares MD Primary Care Provider [phone] Yu Mullen MD Unavailable [phone] Encounter Details Date Type Department Care Team (Late st Contact Info) Description 05/01/2019 Lab Requisition [facility] [place] [address] Justin Delaney MD [address] [place] [address] Encounter for screening for malignant neoplasm of colon Social History Tobacco Use Types Packs/Day Years [...] Assessment Author No 05/20/2018 2:12 PM EDT LulaSunshine [place]arez jorge Love LPN * Does this person have serious difficulty walking or climbing stairs? Answer Date of Assessment Author No 05/20/2018 2:12 PM EDT Luladaniela Sunshine jorge Love LPN * Does this person have difficulty dressing or bathing? Answer Date of Assessment Author No 05/20/2018 2:12 PM EDT Luladaniela Sunshine jorge Love LPN * Because of a physical, mental or emotional condition, does this person have difficulty doing errands alone such as visiting a doctor's office or shopping? Answer Date of Assessment Author No 05/20/2018 2:12 PM EDT LulaSunshine suarez jorge Love LPN documented as of this encounter Mental Status * Because of a physical, mental or emotional condition, does this person have serious difficulty concentrating, remembering or making decisions? Answer Entry Date Author No 05/20/2018 2:12 PM EDT Luladaniela Sunshine jorge Love LPN documented in this encounter Plan of [...] Procedure Name Priority Date/Time Associated Diagnosis Comments PATHOLOGY TISSUE REQUEST Routine 05/01/2019 8:30 AM EST Encounter for screening for malignant neoplasm of colon documented in this encounter Results * PATHOLOGY TISSUE REQUEST (05/01/2019 8:30 AM EST) CASE REPORT Surgical Pathology Case: [id number] Authorizing Provider: Justin Delaney MD Collected: 05/01/201930 Ordering Location: [facility] Received: 05/01/2019 7338 Pathologist: Reggie Cabrera MD Specimen: Splenic flexure 05/02/2019 9:08 AM EST [facility] CLINICAL HISTORY Screening colon, low risk. 05/02/2019 9:08 AM EST [facility] FINAL DIAGNOSIS Splenic Flexure Colon Polyps: - Colonic Mucosa With Edema, Lymphoid Aggregates (Lymphoid Polyps). - Negative For Adenomatous Change. - Focal Early Hyperplastic Change of Mucosal Surface. 05/02/2019 9:08 AM EST [facility] at 0908 EST GROSS DESCRIPTION Received in formalin labeled with the patient s name and s plenic flexure colon polyps are multiple fragments of duncan tissue ranging from 0.3 to 0.5 cm in greatest dimension. Entirely submitted in one cassette./ ZN 05/02/2019 9:08 AM EST [facility] MICROSCOPIC DESCRIPTION Microscopic examination is performed and the findings corroborate the diagnosis. 05/02/2019 9:08 AM EST [facility] FLOW CYTOMETRY SUMMARY 05/02/2019 9:08 AM EST [facility] EMBEDDED IMAGES 05/02/2019 9:08 AM EST [facility] Tissue STRUCTURE OF LEFT COLIC FLEXURE / Unknown 05/01/2019 8:30 AM EST 05/01/2019 3:47 PM EST us Justin Todd MD PATHOLOGY ORDERABLES Final Result Performing Organization Address City/State/[facility] Co de Phone Number [facility] [address] [place], [place] [id number] [address] documented in this encounter Visit Diagnoses Diagnosis Encounter for screening for malignant neoplasm of colon Special screening for malignant neoplasms, colon documented in this encounter Care Teams Water Supervisor Relationship Specialty Start Date End Date Carol Ng MD PCP - General 07/08/10 07/09/22 Moise Mares MD [address] [place] [address] [place] [address] PCP - General Family Medicine 07/10/22 Selin Escoto, RN Clerical And Office Support Workers 08/22/21 12/29/21 Yu Mullen MD [address] [place] [address] Medical Oncologist Internal Medicine-Hematology and Oncology 08/07/23 documented as of this encounter
--- OUTSIDE RECORDS SUMMARY | 2024-08-18 14:49 | XMS_ITS | Clinical Summary ---
Author Organization [facility] Address [address] [facility] [place] [address] [place] [address] Phone Care Team Providers Care Television Cabinet Finisher Name Role Phone Imer Estes MD Unavailable Conditions or Problems No information available. Medications No information available. Medications Administered No information available. Allergies, Adverse Reactions, Alerts No information available. Results No information available. Plan of Care No information available. Procedures No information available. Vital Signs No information available. Immunizations No information available. Advance Directives No information available.
--- OUTSIDE RECORDS SUMMARY | 2024-08-18 14:50 | XMS_ITS | Encounter Summary ---
Author Organization [place] [address] Care Team Providers Care Manager Mba Name Role Phone Moise Mares MD Primary Care Provider [phone] Yu Mullen MD Unavailable [phone] Reason for Visit * Reason Onset Date Comments Medication Refill 07/28/2022 Encounter Details Date Type Department Care Team (Late st Contact Info) Description 07/28/2022 Refill SEP Neurology [facility] [address] [place] [address] Wendi Villalta MD [address] [place] [address] Medication Refill Social History Tobacco Use Types Packs/Day Years [...] Answer Date Recorded PHQ-2 Total Score 0 11/02/2021 [facility] [place] of Occupat ional Health - Occupational Stress [...] Ernesto Bourgeois LPN documented in this encounter Plan of [...] HEMOGLOBIN A1C < 7.0 Result Component 7.3( 3:53 PM EDT) No Carol Ng MD documented as of this encounter Visit Diagnoses Not on filedocumented in this encounter Care Teams Manager Mba Relationship Specialty Start Date End Date Moise Mares MD [address] [place] [address] [address] [place], [place] [address] PCP - General Family Medicine 07/10/22 Yu Mullen MD [address] [place] [address] [place] [id number] Medical Oncologist Internal Medicine-Hematology and Oncology 08/07/23 documented as of this encounter
--- OUTSIDE RECORDS SUMMARY | 2024-08-18 14:50 | XMS_ITS | Referral Summary ---
Author Organization [facility] Address [address] [place] [address] [place] [address] Care Team Providers Care Tail Worker Name Role Phone Unavailable Primary Care Provider Unavailabl e Social History Tobacco Use Types Packs/Day Years Used Date Smoking Tobacco: Never Assessed Comments Unknown Sex and Gender Information Value Date Recorded Sex Assigned at Not on file Legal Sex Female 7:47 PM EDT Gender Identity Not on file Sexual Orientation Not on file Plan of Treatment Not on file
--- OUTSIDE RECORDS SUMMARY | 2024-08-18 14:50 | XMS_ITS | Encounter Summary ---
Author Organization [place] [address] Care Team Providers Care Supervisor Compounding And Finishing Name Role Phone Moise Mares MD Primary Care Provider [phone] Yu Mullen MD Unavailable [phone] Reason for Visit * Reason Onset Date Comments Medication Refill 06/27/2024 Encounter Details Date Type Department Care Team (Late st Contact Info) Description 06/27/2024 Refill SEP Neurology [facility] [address] [place] [phone] [place] [address] [place] [address] Medication Refill Social History Tobacco Use [...] Date Recorded PHQ-2 Total Score 0 05/19/2024 [facility] [place] of Occupat ional Health - Occupational Stress [...] 9:50 AM EDT Ernesto Bourgeois LPN documented as of this encounter Mental Status * Because of a physical, mental or emotional condition, does this person have serious difficulty concentrating, remembering or making decisions? Answer Entry Date Author No 11/02/2021 9:50 AM EDT Ernesto Bourgeois LPN documented in this encounter Ordered Prescriptions Prescription Sig Dispense Quantity Refills Last Filled Start Date End Date gabapentin (NEURONTIN) 300 mg Oral CapsuleIndications :Neuropathy Take 3 Capsules by mouth 2 times daily. 180 Capsule 06/30/2024 documented in this encounter Miscellaneous Notes * Telephone Encounter - Marcelina Herrera MA - 06/30/2024 9:41 AM EDT Medication Details: Name: GBP Tablet Dose: 300 mg Si capsules BID Side effects: no Verified Pharmacy: yes Last office visit: 08/29/23 Next office visit: 07/17/24 Neurology notes reviewed: yes Need MISSY/MISSY result: n/a Last Urine Drug Screen (must be at least annual if on controlled substance): n/a Drug Contract Signed: n/a documented in this encounter Plan of Treatment [...] as of this encounter Visit Diagnoses Diagnosis Neuropathy Mononeuritis of unspecified site documented in this encounter Discontinued Medications Medication Sig Discontinue Reason Start Date End Da te gabapentin (NEURONTIN) 300 mg Oral CapsuleIndications:Neur opathy Take 3 Capsules by mouth 2 times daily. Reorder 03/20/2024 06/27/2024 documented as of this encounter Care Teams Supervisor Compounding And Finishing Relationship Specialty Start Date End Date Moise Mares MD [address] [place] [address] [place] [address] PCP - General Family Medicine 07/10/22 Yu Mullen MD [address] [place] [address] [place] [address] Medical Oncologist Internal Medicine-Hematology and Oncology 08/07/23 documented as of this encounter
--- OUTSIDE RECORDS SUMMARY | 2024-08-18 14:50 | XMS_ITS | Encounter Summary ---
Author Organization [place] [address] Care Team Providers Care In Store Representative Name Role Phone Moise Mares MD Primary Care Provider [phone] Yu Mullen MD Unavailable [phone] Encounter Details Date Type Department Care Team (Late st Contact Info) Description 06/23/2024 Orders Only SEP [facility] [address] [place] [address] Moise Mares MD [address] [place] [address] [place] [address] Social History Tobacco Use Types Packs/Day Years [...] Date Recorded PHQ-2 Total Score 0 05/19/2024 [facility] [place] of Occupat ional Health - Occupational Stress [...] on filedocumented in this encounter Care Teams In Store Representative Relationship Specialty Start Date End Date Moise Mares MD [address] [place] [address] [place] [address] PCP - General Family Medicine 07/10/22 Yu Mullen MD [address] [place] [address] [place] [id number] Medical Oncologist Internal Medicine-Hematology and Oncology 08/07/23 documented as of this encounter
--- OUTSIDE RECORDS SUMMARY | 2024-08-18 14:50 | XMS_ITS | Clinical Summary ---
Author Organization [facility] Address [facility] [address] [place] [address] Care Team Providers Care Soldering Machine Operator Automatic Name Role Phone Unavailable Primary Care Provider Unavailabl e Social History Tobacco Use Types Packs/Day Years Used Date Smoking Tobacco: Never Assessed Comments Unknown Sex and Gender Information Value Date Recorded Sex Assigned at Not on file Legal Sex Female 7:47 PM EDT Gender Identity Not on file Sexual Orientation Not on file Plan of Treatment Health Maintenance Due Date Last Done Comments Hepatitis C Screening 1963 DTap,Tdap,and Td (1 - Tdap) 12/26/1974 Pap Screening 12/26/1984 Mammogram Screening 2003 Colonoscopy 12/26/2008 Pneumococcal 50+ (1 of 1 - PCV) 12/26/2013 Shingrix (#1) 12/26/2013 Influenza Vaccine (Season Ended) 2024 RSV Vaccine (60+ or ) (1 - 1-dose 75+ series) 12/26/2038 HPV Aged Out No longer eligi ble based on patient's age to complete this topic Meningococcal conjugate tasha nt 4 (MCV4) Aged Out No longer eligible b ased on patient's age to complete this topic RSV Immunization (<20 months) Aged Out No longer eligible based on patient's age to complete this topic
--- OUTSIDE RECORDS SUMMARY | 2024-08-18 14:50 | XMS_ITS | Encounter Summary ---
Author Organization [place] [address] Care Team Providers Care Guide Domestic Tour Name Role Phone Moise Mares MD Primary Care Provider [phone] Yu Mullen MD Unavailable [phone] Reason for Visit * Reason Onset Date Comments Medication Refill 08/15/2024 Encounter Details Date Type Department Care Team (Late st Contact Info) Description 08/15/2024 Refill SEP Mac [facility] [place] [address] Moise Mares MD [address] [place] [address] [place] [address] Medication Refill Social History Tobacco Use Types [...] Date Recorded PHQ-2 Total Score 0 05/19/2024 [facility] [place] of Occupat ional Health - Occupational Stress [...] Filled Start Date End Date tirzepatide (MOUNJARO) 5 mg/0.5 mL SubQ Pen InjectorIndications :Type 2 diabetes mellitus with hyperglycemia, without long-term current use of insulin (HCC) Inject 5 mg under the skin once a week. 2 mL 2 08/15/2024 documented in this encounter Plan of Treatment [...] without long-term current use of insulin (HCC) documented in this encounter Discontinued Medications Medication Sig Discontinue Reason Start Date End Da te tirzepatide (MOUNJARO) 5 mg/0.5 mL SubQ Pen InjectorIndications:Type 2 diabetes mellitus with hyperglycemia, without long-term current use of insulin (HCC) Inject 5 mg under the skin once a week. Reorder 07/31/2024 08/15/2024 documented as of this encounter Care Teams Guide Domestic Tour Relationship Specialty Start Date End Date Moise Mares MD [address] [place] [address] [place] [address] PCP - General Family Medicine 07/10/22 Yu Mullen MD [address] [place] [address] Medical Oncologist Internal Medicine-Hematology and Oncology 08/07/23 documented as of this encounter
--- OUTSIDE RECORDS SUMMARY | 2024-08-18 14:50 | XMS_ITS | Encounter Summary ---
Author Organization [place] [address] Care Team Providers Care Coil Tier Name Role Phone Moise Mares MD Primary Care Provider [phone] Yu Mullen MD Unavailable [phone] Encounter Details Date Type Department Care Team (Late st Contact Info) Description 07/17/2024 Orders Only SEP Neurology [facility] [address] [place] [address] Selin Navarro MA Neuropathy Social History Tobacco Use Types Packs/Day Years [...] Date Recorded PHQ-2 Total Score 0 05/19/2024 [facility] [place] of Occupat ional Health - Occupational Stress [...] 2 times daily. 60 Capsule 1 07/17/2024 pregabalin (LYRICA) 75 mg Oral CapsuleIndications :Neuropathy [...] Capsule 07/17/2024 5 documented in this encounter Plan of Treatment [...] Discontinue Reason Start Date End Da te pregabalin (LYRICA) 25 mg Oral CapsuleIndications:Neuro usman Take 1 Capsule by mouth 2 times daily for 7 days. Reorder 07/17/2024 07/17/2024 pregabalin (LYRICA) 50 mg Oral CapsuleIndications:Neuro usman Take 1 Capsule by mouth 2 times daily for 7 days. Reorder 07/17/2024 07/17/2024 pregabalin (LYRICA) 75 mg Oral CapsuleIndications:Neuro usman Take 1 Capsule by mouth 2 times daily for 7 days. Reorder 07/17/2024 07/17/2024 pregabalin (LYRICA) 100 mg Oral CapsuleIndications:Neuro usman Take 1 Capsule by mouth 2 times daily. Reorder 07/17/2024 07/17/2024 documented as of this encounter Care Teams Coil Tier Relationship Specialty Start Date End Date Moise Mares MD [address] [place] [address] [place] [address] PCP - General Family Medicine 07/10/22 Yu Mullen MD [address] [place] [address] [place] [address] Medical Oncologist Internal Medicine-Hematology and Oncology 08/07/23 documented as of this encounter
--- OUTSIDE RECORDS SUMMARY | 2024-08-18 14:50 | XMS_ITS | Encounter Summary ---
Author Organization [place] [address] Care Team Providers Care Optoelectronic Technician Name Role Phone Moise Mares MD Primary Care Provider [phone] Yu Mullen MD Unavailable [phone] Reason for Visit * Reason Onset Date Comments Medication Refill 07/29/2024 Encounter Details Date Type Department Care Team (Late st Contact Info) Description 07/29/2024 Refill SEP Mac [facility] [place] [address] Moise Mares MD [address] [place] [address] [place] [address] Medication Refill Social History Tobacco Use [...] Date Recorded PHQ-2 Total Score 0 05/19/2024 [facility] [place] of Occupat ional Health - Occupational Stress [...] of insulin (HCC) documented in this encounter Care Teams Optoelectronic Technician Relationship Specialty Start Date End Date Moise Mares MD [address] [place] [address] [place] [address] PCP - General Family Medicine 07/10/22 Yu Mullen MD [address] [place] [address] [place] [id number] Medical Oncologist Internal Medicine-Hematology and Oncology 08/07/23 documented as of this encounter
--- OUTSIDE RECORDS SUMMARY | 2024-08-18 14:50 | XMS_ITS | Encounter Summary ---
Author Organization [place] [address] Care Team Providers Care Solder Leveler Printed Circuit Boards Name Role Phone Moise Mares MD Primary Care Provider Yu Mullen MD Unavailable Encounter Details Date Type Department Care Team (Late st Contact Info) Description 07/31/2024 Orders Only SEP Mac [address] [place] [address] Moise Mares MD [address] [place] [address] [place] [address] Type 2 diabetes mellitus with hyperglycemia, [...] Date Recorded PHQ-2 Total Score 0 05/19/2024 [facility] of Occupat ional Health - Occupational Stress [...] of Assessment Author No 11/02/2021 9:50 AM Ernetso Randall LPN * Because of a physical, [...] skin once a week. 2 mL 2 07/31/2024 08/15/2024 documented in this encounter Plan of [...] Start Date End Da te tirzepatide (MOUNJARO) 2.5 mg/0.5 mL SubQ Pen InjectorIndications:T ype 2 diabetes mellitus with hyperglycemia, without long-term current use of insulin (HCC) Subcutaneous (Inject under the skin) 2.5 mg once a week. Cancelled by 07/16/2024 07/31/2024 documented as of this encounter Care Teams Solder Leveler [employer]ed [employer] Boards Relationship Specialty Start Date End Date Moise Mares MD [address] [place] [address] [address] [place] [id number] PCP - General Family Medicine 07/10/22 Yu Mullen MD [address] [place] [address] [place] [address] Medical Oncologist Internal Medicine-Hematology and Oncology 08/07/23 documented as of this encounter
--- OUTSIDE RECORDS SUMMARY | 2024-08-18 14:50 | XMS_ITS | Encounter Summary ---
Author Organization [facility] [place] [address] Care Team Providers Care Rural Health Consultant Name Role Phone Moise Mares MD Primary Care Provider [phone] Yu Mullen MD Unavailable [phone] Encounter Details Date Type Department Care Team (Latest Contact Info) Description 07/16/2024 Travel Social History Tobacco Use Types Packs/Day Years [...] Date Recorded PHQ-2 Total Score 0 05/19/2024 [facility] of Occupat ional Health - Occupational Stress [...] Ernesto Randall LPN documented in this encounter Plan of [...] on filedocumented in this encounter Care Teams Rural Health Consultant Relationship Specialty Start Date End Date Moise Mares MD [address] [place] [address] [address] [place] [id number] PCP - General Family Medicine 07/10/22 Yu Mullen MD [address] [place] [address] [place] [id number] Medical Oncologist Internal Medicine-Hematology and Oncology 08/07/23 documented as of this encounter
--- OUTSIDE RECORDS SUMMARY | 2024-08-18 14:50 | XMS_ITS | Encounter Summary ---
Author Organization [place] [address] Care Team Providers Care Offset Press Operator Name Role Phone Moise Mares MD Primary Care Provider [phone] Yu Mullen MD Unavailable [phone] Encounter Details Date Type Department Care Team (Late st Contact Info) Description 07/10/2024 Orders Only SEP Mac [address] [place] [address] Moise Mares MD [address] [place] [address] [place] [address] Type 2 diabetes mellitus with hyperglycemia, [...] Date Recorded PHQ-2 Total Score 0 05/19/2024 [facility] [place] of Occupat ional Health - Occupational Stress [...] Refills Last Filled Start Date End Date semaglutide 0.25 mg or 0.5 mg (2 mg/3 mL) SubQ Pen InjectorIndicatio ns:Type 2 diabetes mellitus with hyperglycemia, without long-term current use of insulin (HCC) Subcutaneous (Inject under the skin) 0.25 mg once a week for 28 days, THEN 0.5 mg once a week for 14 days. 3 mL 07/10/2024 documented in this encounter Plan of Treatment [...] 2.5 mg once a week. Cancelled by 06/23/2024 07/10/2024 documented as of this encounter Care Teams Offset Press Operator Relationship Specialty Start Date End Date Moise Mares MD [address] [place] [address] [place] [address] PCP - General Family Medicine 07/10/22 Yu Mullen MD [address] [place] [address] Medical Oncologist Internal Medicine-Hematology and Oncology 08/07/23 documented as of this encounter
--- OUTSIDE RECORDS SUMMARY | 2024-08-18 14:50 | XMS_ITS | Encounter Summary ---
Author Organization [place] [address] Care Team Providers Care Senior Principal Software Engineer Name Role Phone Moise Mares MD Primary Care Provider [phone] Yu Mullen MD Unavailable [phone] Encounter Details Date Type Department Care Team (Late st Contact Info) Description 07/11/2024 Orders Only SEP Mac [address] [place] [address] Moise Mares MD [address] [place] [address] [place] [address] Type 2 diabetes mellitus with hyperglycemia, [...] Recorded PHQ-2 Total Score 0 05/19/2024 [facility] of Occupat ional Health - Occupational Stress [...] 2.5 mg once a week. 2 mL 07/11/2024 documented in this encounter Plan of Treatment [...] Discontinue Reason Start Date End Da te semaglutide 0.25 mg or 0.5 mg (2 mg/3 mL) SubQ Pen InjectorIndications:T ype 2 diabetes mellitus with hyperglycemia, without long-term current use of insulin (HCC) Subcutaneous (Inject under the skin) 0.25 mg once a week for 28 days, THEN 0.5 mg once a week for 14 days. Cancelled by 07/10/2024 07/11/2024 documented as of this encounter Care Teams Senior Principal Software Engineer Relationship Specialty Start Date End Date Moise Mares MD [address] [place] [address] [address] [place], [place] [id number] PCP - General Family Medicine 07/10/22 Yu Mullen MD [address] [place] [address] [place] [address] Medical Oncologist Internal Medicine-Hematology and Oncology 08/07/23 documented as of this encounter
--- OUTSIDE RECORDS SUMMARY | 2024-08-18 14:50 | XMS_ITS | Encounter Summary ---
Author Organization [place] [address] Care Team Providers Care Project Architect Name Role Phone Moise Mares MD Primary Care Provider [phone] Yu Mullen MD Unavailable [phone] Reason for Visit * Reason Onset Date Comments Medication Refill 07/16/2024 Encounter Details Date Type Department Care Team (Late st Contact Info) Description 07/16/2024 Refill SEP Mac [facility] [place] [address] Moise Mares MD [address] [place] [address] [place] [address] Medication Refill Social History Tobacco Use [...] Date Recorded PHQ-2 Total Score 0 05/19/2024 [facility] [place] of Occupat ional Health - Occupational Stress [...] mg once a week. 2 mL 11 07/16/2024 documented in this encounter Plan of Treatment [...] the skin) 2.5 mg once a week. Reorder 07/11/2024 07/16/2024 documented as of this encounter Care Teams Project Architect Relationship Specialty Start Date End Date Moise Mares MD [address] [place] [address] [address] [place] [id number] PCP - General Family Medicine 07/10/22 Yu Mullen MD [address] [place] [address] [place] [id number] Medical Oncologist Internal Medicine-Hematology and Oncology 08/07/23 documented as of this encounter
[2024-08-18 15:14] VITALS: BP 145/85; PULSE 76; RESP 18; O2SAT 96; BMI 31.4
--- NOTE | 2024-08-18 15:39 | A.OFFVIS_ITS ---
[facility] Disclaimer: The information contained in this section may have been updated after the patient was seen, as this information can be updated by other users. Medical History Vitamin D deficiency Vitamin B12 deficiency Diabetes mellitus Osteoporosis Fibromyalgia Migraines Liver disease HTN (hypertension) HLD (hyperlipidemia) GERD (gastroesophageal reflux disease) Chronic kidney disease Arthritis Family History Other COPD (chronic obstructive pulmonary disease) Diabetes Heart disease Hyperlipidemia Hypertension Lung cancer Social History Smoking Status: Never smoker alcohol intake: never current occupational status: other Travel in the last 8 weeks?: None PM Subjective & Objective Subjective Subjective:: Patient is a pleasant 58-year-old female who presents today for follow-up of her left intra-articular knee injection on 08/06/2024. Today she rates her pain a 6 out of 10. She does state that that is pain in other related areas. She does state that the left knee injection did provide 90% improvement and is still working well. She states she has been able to move around easier with overall decreased pain. Patient is still using her compounded cream with additional improvement. Patient did previously have a right intra-articular shoulder injection back in June that did provide 80% relief. She states that overall this pain still is manageable. Her Braxton has been reviewed and is appropriate. Review of Systems: General: No recent weight changes, no fever, no sleep disturbances Respiratory: No cough, no shortness of air, no recurring pulmonary infections Cardiovascular/peripheral vascular: No chest pain, no palpitations, no edema, no shortness of breath Gastrointestinal: No new onset incontinence, normal bowel movements reported Genitourinary: No new onset incontinence Musculoskeletal: Knee pain, shoulder pain Psychiatric: [Normal mood/affect] Neurological: [Denies weakness in extremities], [denies balance issues] Pain at rest (0-10 scale): 6 Objective Objective:: Physical Exam: General: Alert and oriented x3, no acute distress, pleasant and cooperative Lungs: Respirations even and unlabored, symmetrical chest expansion Eyes: PERRL Musculoskeletal: Flexion and extension of left knee within normal limits Neurological: Speech clear, no gross sensory deficit Has patient had previous pain injection?: Yes Percent improvement in pain since last injection: 90% Conservative treatment options previously tried: Home exercise plan Length of treatment: Longer than 12 weeks Meds Home Medications and Allergies Home Medications ?Medication ?Instructions ?Recorded ?Confirmed ?Type aspirin 81 mg chewable tablet 81 mg PO DAILY Blood Thi nner 01/14/24 08/18/24 History atorvastatin 20 mg tablet 20 mg PO DAILY Cholesterol 1 03/15/23 08/18/24 History cyclobenzaprine 10 mg tablet 10 mg PO BID Pain 2 4 08/18/24 History diclofenac sodium 1 % topical gel 1 - 2 g topical BID Pain 01/14/24 08/18/24 History duloxetine 60 mg capsule,delayed 60 mg PO DAILY MOOD 1 03/15/23 08/18/24 History release gabapentin 300 mg capsule 300 mg PO DIRECTED Pain 1 03/15/23 08/18/24 History hydrochlorothiazide 25 mg tablet 12.5 mg PO DAILY Flui d 01/14/24 08/18/24 History metformin 500 mg tablet,extended 1,000 mg PO DAILY Trisha betes 01/14/24 08/18/24 History release 24 hr omeprazole 20 mg capsule,delayed 20 mg PO DAILY STOMAC H 01/14/24 08/18/24 History release semaglutide 0.25 mg or 0.5 mg (2 0.25 - 0.5 mg SQ D IRECTED 01/14/24 08/18/24 History mg/3 mL) subcutaneous pen injector Diabetes (Ozempic) New Prescriptions to Start Prescriptions: Allergies Allergy/AdvReac Type Severity Reaction Status Date / Time No Known Allergies Allergy Verified 06/17/24 09:49 Assessment and Plan *Assessment and plan (1) Left knee pain: Status: Acute Category: Medical Code(s): M25.562 - Pain in left knee (2) Right shoulder pain: Status: Acute Category: Medical Code(s): M25.511 - Pain in right shoulder (3) Bilateral knee pain: Status: Acute Qualifiers: Chronicity: chronic Qualified Code(s): M25.561 - Pain in right knee; M25.562 - Pain in left knee; G89.29 - Other chronic pain Category: Medical Code(s): M25.561 - Pain in right knee; M25.562 - Pain in left knee Plan Patient has had significant improvement and does not require any additional injection therapy at this time. Patient will return to clinic in 6 weeks for reevaluation of symptoms and plan of care. Patient has been instructed to contact the clinic with any concerns before the next appointment. Dr. Sanchez has reviewed this note and agrees with this plan of care. This note was dictated using voice recognition software and make contain errors or omissions. All injections are used with Lidocaine, Bupivacaine and dexamethasone. Occasionally urine drug screen is needed to verify patient's compliance with our office pain contract. This is ordered based off specific treatments related to chronic pain with the potential to abuse certain medications.
== END 2024-08-18 23:59 | disposition home or self-care (01) ==
LOC: SC.PAIN 14:35
PROVIDERS: PCP Family Medicine; Visit Provider Nurse Practitioner Family
DX: M25.562 Pain in left knee (principal); M25.561 Pain in right knee; M25.511 Pain in right shoulder; G89.29 Other chronic pain
CPT/HCPCS: 99212; G0463

== ENCOUNTER 2024-09-29 10:01 | Outpatient (POV) | payer OTHER, SELFPAY ==
--- OUTSIDE RECORDS SUMMARY | 2024-08-26 08:15 | XMS_ITS | Encounter Summary ---
Author Organization [place] [address] Care Team Providers Care Manager Inventory Name Role Phone Moise Mares MD Primary Care Provider [phone] Yu Mullen MD Unavailable Reason for Visit * Reason Comments Follow-up Regarding Brooke santana Encounter Details Date Type Department Care Team (Late Contact Info) Description 08/26/2024 8:15 AM EDT Office Visit [facility] [place] [address] [place] [address] Moise Mares MD [address] [place] [address] [place] [address] Type 2 diabetes mellitus with hyperglycemia, without long-term current use of insulin (HCC) (Primary Dx); Stage 3a chronic kidney disease (HCC) Social History Tobacco Use Types Packs/Day Years [...] Date Recorded PHQ-2 Total Score 0 05/19/2024 [facility] of Occupat ional Health - Occupational Stress [...] Sign Reading Time Taken Comments Blood Pressure 140/92 08/26/2024 8:10 AM EDT Pulse 62 08/26/2024 8:10 AM EDT Temperature 36.1 C (97 F) 08/26/2024 8:10 AM EDT Respiratory Rate 18 08/26/2024 8:10 AM EDT Oxygen Saturation 99% 08/26/2024 8:10 AM EDT Inhaled Oxygen Concentration - - Weight 88.5 kg (195 lb) 08/26/2024 8:10 AM EDT Height 167.6 cm (5' 6 ) 08/26/2024 8:10 AM EDT Body Mass Index 31.47 08/26/2024 8:10 AM EDT documented in this encounter Functional [...] 0.5 mg (2 mg/3 mL) SubQ Pen InjectorIndications :Type 2 diabetes mellitus with hyperglycemia, without long-term current use of insulin (HCC),Stage 3a chronic kidney disease (HCC) Inject 0.5 mg under the skin once a week. 9 mL 3 08/26/2024 documented in this encounter Progress Notes * Moise Mares MD - 08/26/2024 8:15 AM EDTAssociated Problem(s): Type 2 diabetes mellitus with hyperglycemia, without long-term current use of insulin (HCC) Orders: semaglutide 0.25 mg or 0.5 mg (2 mg/3 mL) SubQ Pen Injector; Inject 0.5 mg under the skin once a week. BASIC METABOLIC PANEL; Future HEMOGLOBIN A1C; Future On REED inhibitor and statin currently. Up-to-date on diabetic eye exam and microalbumin screen -Due for follow-up A1c for diabetic control. Will transition from Trulicity to Ozempic for further A1c control and CKD per below as well as weight loss. * Moise Mares MD - 08/26/2024 8:15 AM EDTAssociated Problem(s): Stage 3a chronic kidney disease (HCC) Orders: semaglutide 0.25 mg or 0.5 mg (2 mg/3 mL) SubQ Pen Injector; Inject 0.5 mg under the skin once a week. BASIC METABOLIC PANEL; Future Follow-up BMP. Already on SGLT2 inhibitor. May benefit from Ozempic/semaglutide to help with CKD aswell is diabetic control. -Up-to-date on microalbumin -On REED inhibitor * Yolanda Burr - 08/26/2024 8:15 AM EDT Venipuncture in the right antecubital vein with 21 gauge needle, length 1 1/2 inch. * Moise Mares MD - 08/26/2024 8:15 AM EDT Assessment & Plan Type 2 diabetes mellitus with hyperglycemia, without long-term current use of insulin (HCC) Orders: semaglutide 0.25 mg or 0.5 mg (2 mg/3 mL) SubQ Pen Injector; Inject 0.5 mg under the skin once a week. BASIC METABOLIC PANEL; Future HEMOGLOBIN A1C; Future On REED inhibitor and statin currently. Up-to-date on diabetic eye exam and microalbumin screen -Due for follow-up A1c for diabetic control. Will transition from Trulicity to Ozempic for further A1c control and CKD per below as well as weight loss. Stage 3a chronic kidney disease (HCC) Orders: semaglutide 0.25 mg or 0.5 mg (2 mg/3 mL) SubQ Pen Injector; Inject 0.5 mg under the skin once a week. BASIC METABOLIC PANEL; Future Follow-up BMP. Already on SGLT2 inhibitor. May benefit from Ozempic/semaglutide to help with CKD aswell is diabetic control. -Up-to-date on microalbumin -On REED inhibitor Progress Note: Vitals: 08/26/24 0810 BP: (!) 140/92 Pulse: 62 Resp: 18 Temp: 97 ??F (36.1 ??C) TempSrc: Temporal SpO2: 99% Weight: 195 lb (88.5 kg) Height: 5' 6 (1.676 m) Body mass index is 31.47 kg/m??. SUBJECTIVE: Chief Complaint Patient presents with Follow-up Regarding Brooke fenton HPI: She is following up today for diabetes. She is currently on metformin, SGLT2 inhibitor, and Trulicity. She wants to transition from Trulicity to a different GLP-1 medication help with weight loss andother secondary metabolic benefits. She does have a history of CKD. She is currently on an SGLT2 inhibitor. No reported issues with high sugars or low sugars. Most recent A1c was slightly above goal at 7.3%. Due for repeat A1c today. She up-to-date on microalbumin screen and diabetic eye exams. Sheis on statin and REED inhibitor for secondary risk reduction Review of Systems Constitutional: Negative for activity change, chills, diaphoresis and fever. HENT: Negative for trouble swallowing and voice change. Cardiovascular: Negative for chest pain. Gastrointestinal: Negative for diarrhea, nausea and vomiting. Musculoskeletal: Negative for gait problem and myalgias. Skin: Negative for rash. Neurological: Negative for dizziness and headaches. Psychiatric/Behavioral: Negative for decreased concentration, dysphoric mood, sleep disturbance andsuicidal ideas. The patient is not nervous/anxious. OBJECTIVE: Physical Exam Vitals reviewed. Constitutional: General: She is not in acute distress. Appearance: She is well-developed. She is not diaphoretic. HENT: Head: Normocephalic and atraumatic. Eyes: Pupils: Pupils are equal, round, and reactive to light. Cardiovascular: Rate and Rhythm: Normal rate and regular rhythm. Pulmonary: Effort: Pulmonary effort is normal. Breath sounds: Normal breath sounds. No wheezing. Skin: Findings: No rash. Neurological: Mental Status: She is alert and oriented to person, place, and time. Psychiatric: Behavior: Behavior normal. Thought Content: Thought content normal. Judgment: Judgment normal. documented in this encounter Plan of Treatment Not on file documented as of this encounter Goals Goal Patient Goal Type Associated Problems Recent Progress Patient-Stated? Author Blood Pressure < 140/90 Blood Pressure 140/92(2024 8:10 AM EDT) No Candice Allen LPN Maintain a healthy diet, exercise regularly and maintain an ideal body weight General No Candice Allen LPN BMI (Calculated) < 30 General 32.2(09/04/19 10:03 AM EDT) No Carol Ng MD Not [...] RN HEMOGLOBIN A1C < 7.0 Result Component 6.4( 8:35 AM EDT) No Carol Ng MD documented as of this encounter Procedures Procedure Name Priority Date/Time Associated Diagnosis Comments HEMOGLOBIN A1C Routine 08/26/2024 8:35 AM EDT Type 2 diabetes mellitus with hyperglycemia, without long-term current use of insulin (HCC) BASIC METABOLIC PANEL Routine 08/26/2024 8:35 AM EDT Type 2 diabetes mellitus with hyperglycemia, without long-term current use of insulin (HCC) Stage 3a chronic kidney disease (HCC) documented in this encounter Results * (ABNORMAL) HEMOGLOBIN A1C (08/26/2024 8:35 AM EDT) Hgb A1C 6.4(H) 4.2 - 5.6 % 08/26/2024 5:35 PM EDT [facility] Est. Avg Glucose 137 mg/dL 08/26/2024 5:35 PM EDT [facility] Blood VENOUS BLOOD / Unknown Venipuncture / Unknown 08/26/2024 8:35 AM EDT 08/26/2024 8:35 AM EDT Narrative [facility] - 08/26/2024 5:35 PM EDT REFERENCE RANGE: Normal: 4.0-5.6% Pre-diabetes: 5.7-6.4% Provisional diagnosis of diabetes: >6.4% Hgb F>10% and anything which shortens red cell survival, such as hemolytic anemia, or unstable hemoglobin variants such as HbSS, HbSC, or HbCC, will lower the HbA1c value associated with a given level of glycemic control. us Moise Mares MD CHEMISTRY ORDERABLES Final Res ult [facility] [address] [facility] , [place] [address] * (ABNORMAL) BASIC METABOLIC PANEL (08/26/2024 8:35 AM EDT) Sodium 138 136 - 145 mmol/L 08/26/2024 5:23 PM EDT [facility] Potassium 4.2 3.5 - 5.0 mmol/L 08/26/2024 5:23 PM EDT [facility] Chloride 105 98 - 107 mmol/L 08/26/2024 5:23 PM EDT [facility] Total CO2 25 22 - 29 mmol/L 08/26/2024 5:23 PM EDT [facility] Anion Gap 8 7 - 16 mmol/L 08/26/2024 5:23 PM EDT [facility] Calcium 9.5 8.8 - 10.4 mg/dL 08/26/2024 5:23 PM EDT [facility] Glucose Lvl 135(H) 70 - 99 mg/dL 08/26/2024 5:23 PM EDT [facility] BUN 10 8 - 23 mg/dL 08/26/2024 5:23 PM EDT [facility] Creatinine 0.99 0.51 - 1.30 mg/dL 08/26/2024 5:23 PM EDT [employer] eGFR (CKD-EPIcr 2020) 65 >=60 mL/min/1.7 3 m2 08/26/2024 5:23 PM EDT [employer] Comment:Estimated GFR was ca lculated using the CKD-EPIcr (2020) equation refit without race. The equation is recommended by the National Kidney Foundation - [place] [employer] Neph[employer] Task Force. Blood VENOUS BLOOD / Unknown Venipuncture / Unknown 08/26/2024 8:35 AM EDT 08/26/2024 8:35 AM EDT us Moise Mares MD CHEMISTRY ORDERABLES Final Res ult [employer] [address] [facility] , [place] [address] documented in this encounter Visit Diagnoses Diagnosis Type 2 diabetes mellitus with hyperglycemia, without long-term current use of insulin (HCC)- Primary Stage 3a chronic kidney disease (HCC) documented in this encounter Discontinued Medications Medication Sig Discontinue Reason Start Date End Da te tirzepatide (MOUNJARO) 5 mg/0.5 mL SubQ Pen InjectorIndications: Type 2 diabetes mellitus with hyperglycemia, without long-term current use of insulin (HCC) Inject 5 mg under the skin once a week. Cancelled by 08/15/2024 08/26/2024 TRULICITY 1.5 mg/0.5 mL SubQ Pen Injector INJECT 0.5 ML SUBCUTANEOUSLY ONE TIME PER WEEK Cancelled by 05/26/2024 08/26/2024 documented as of this encounter Historical Medications * This list may reflect changes made after this encounter. gabapentin (NEURONTIN) 300 mg Oral Capsule take 3 capsules by mouth 2 times daily. 06/30/2024 TRULICITY 1.5 mg/0.5 mL SubQ Pen Injector INJECT 0.5 ML SUBCUTANEOUSLY ONE TIME PER WEEK 05/26/2024 added in this encounter Care Teams Manager Inventory Relationship Specialty Start Date End Date Moise Mares MD [address] [place] [address] [place], [place] [id number] PCP - General Family Medicine 07/10/22 Yu Mullen MD [address] [place] [address] [place], [place] [id number] Medical Oncologist Internal Medicine-Hematology and Oncology 08/07/23 documented as of this encounter
--- OUTSIDE RECORDS SUMMARY | 2024-09-03 10:10 | XMS_ITS | Encounter Summary ---
Author Organization [place] [address] Care Team Providers Care Operations Executive Name Role Phone Moise Mares MD Primary Care Provider [phone] Yu Mullen MD Unavailable [phone] Encounter Details Date Type Department Care Team (Late st Contact Info) Description 09/03/2024 10:10 AM EDT Ancillary Procedure [facility] Pod[facility]ry [place] [address] [place] [address] [place] [phone] [place], [facility] [address] [facility] [address] [address] [place] [address] [place] [phone] Post-op pain Social History Tobacco Use [...] Date Recorded PHQ-2 Total Score 0 05/19/2024 [facility] [place] of Occupat ional Health - Occupational Stress [...] Component 6.4( 8:35 AM EDT) No Carol gN MD documented as of this encounter Procedures Procedure Name Priority Date/Time Associated Diagnosis Comments XR FOOT RIGHT AP LATERAL AND OBLIQUE STANDING Routine 09/03/2024 10:13 AM EDT Post-op pain documented in this encounter Results * XR FOOT RIGHT AP LATERAL AND OBLIQUE STANDING (09/03/2024 10:13 AM EDT) Anatomical Region Laterality Modality Foot Radiographic Ethle ging Narrative 09/04/2024 12:40 PM EDT 3 [...] pain documented in this encounter Care Teams Operations Executive Relationship Specialty Start Date End Date Moise Mares MD [address] [facility] [address] [place] [id number] PCP - General Family Medicine 07/10/22 Yu Mullen MD [address] [facility] [place] [id number] Medical Oncologist Internal Medicine-Hematology and Oncology 08/07/23 documented as of this encounter
--- OUTSIDE RECORDS SUMMARY | 2024-09-03 10:15 | XMS_ITS | Encounter Summary ---
Author [place] [address] Care Team Providers Care Ophthalmic Medical Technician Name Role Phone Moise Mares MD Primary Care Provider [phone] Yu Mullen MD Unavailable [phone] Reason for Referral * In Office Procedure (Routine) - Authorization Not Needed Specialty Diagnoses / Procedures Referred By Alexia gonzalez Referred To Contact Diagnoses Arthritis of right foot Arthritis of right ankle Procedures [facility] ARTHROCENTESIS ASPIR&/INJ INTERM JT/BURS W/O US [place] [facility] [address] [address] Phone: tel: fax: Referral ID Status Reason Start Date Expiration Date Visits Requested Visits Authorized [id number] Authorization Not Needed 09/04/2024 09/04/2025 1 1 Reason for Visit * Reason Comments Foot Pain right foot Encounter Details Date Type Department Care Team (Late st Contact Info) Description 09/03/2024 10:15 AM EDT Office Visit SEP Podiatry [address] [place] [phone] [place] [facility] [address] [facility] [place] [address] [place] [phone] Post-op pain (Primary Dx); Arthritis of [...] Date Recorded PHQ-2 Total Score 0 05/19/2024 [employer] [place] of Occupat ional Health - Occupational Stress [...] DAY 100 Tablet 2 [facility] Strip by [facility].(Non-Drug; Combo Route) route daily. 100 Each 2 [...] daily as needed. 90 Tablet 0 Insulin [place], Disposable, (BD ULTRA-FINE MINI PEN NEEDLE) 31 gauge x 3/16 [facility] Needle Subcutaneous (Inject under the skin) 1 Applicator once a week. 30 Each 2 Lancets [facility] 1 Each by [facility].(Non-Drug; Combo Route) route daily. 100 Each 2 [...] 5 mg Arthritis of right foot - [facility] ARTHROCENTESIS ASPIR&/INJ INTERM JT/BURS W/O US Arthritis of right ankle - UT ARTHROCENTESIS ASPIR&/INJ INTERM JT/BURS W/O US Discussed [...] Type Priority Associated Diagnoses Orde r Schedule UT ARTHROCENTESIS ASPIR&/INJ INTERM JT/BURS W/O US UT Charge Routine Arthritis of right foot Arthritis [...] mg documented in this encounter Care Teams Ophthalmic Medical Technician Relationship Specialty Start Date End Date Moise Mares MD [address] [place] [address] DR JUJU JUAREZ [address] PCP - General Family Medicine 07/10/22 Yu Mullen MD [address] [place] [address] CELENA CHINCHILLA JUJU [id number] Medical Oncologist Internal Medicine-Hematology and Oncology 08/07/23 documented as of this encounter
[2024-09-29 10:08] VITALS: BP 134/90; PULSE 68; RESP 12; O2SAT 99; BMI 30.4
--- OUTSIDE RECORDS SUMMARY | 2024-09-29 10:12 | XMS_ITS | Clinical Summary ---
Author Organization Healthcare Address [address] [place] [address] Care Team Providers Care Fire Protection Engineer Name Role Phone Pcp, No Primary Care [...] [facility]-HIV Screening 1963 [facility]-Hepatitis C Screening 1963 [facility]-Infant/Child/Adol SDOH Screenings 1965 [facility]- SDOH Screenings 12/26/1981 [facility]-Adult SDOH Screenings 12/26/1981 [facility]-Pap Smear 12/26/1984 [facility]-Cervical Cancer Screening 12/26/1993 [facility]-HPV/Cotest 12/26/1993 CT Colonography 12/26/2008 Colonoscopy 12/26/2008 FIT-DNA 12/26/2008 FIT 12/26/2008 FOBT 12/26/2008 Sigmoidoscopy 12/26/2008 [facility]-Colorectal Cancer Screening 12/26/2008 [facility]-Zoster Vaccines (1 of 2) 12/26/2013 [facility]JA-FGVDS-29 Vaccine ( season) 2023 11/28/2022, 02/01/2021, 06/01/2020, Additional history exists [facility]-Breast Cancer Screening 03/13/202404/2022, 03/13/2022, 01/11/2021, Additional history exists [facility]-Influenza Vaccine (#1) 11/10/202411/28, 11/16/2021, 02/01/2021, Additional history exists [facility]-DTaP,Tdap,and Td [...] patient's age to complete this topic Insurance [facility] Care Teams Fire Protection Engineer Relationship Specialty Start Date End Date Pcp, [place] [address] PCP - General Family Medicine 11/20/23
--- OUTSIDE RECORDS SUMMARY | 2024-09-29 10:12 | XMS_ITS | Encounter Summary ---
Author Organization [place] [address] Care Team Providers Care Low Pressure Firer Name Role Phone Moise Mares MD Primary Care Provider [phone] Yu Mullen MD Unavailable [phone] Reason for Visit * Reason Comments Medication Refill Encounter Details Date Type Department Care Team (Late Contact Info) Description 09/04/2024 Refill SEP Neurology [facility] [address] [place] [address] Wendi Villalta MD [address] [place] [address] Medication Refill Social History Tobacco Use Types [...] Date Recorded PHQ-2 Total Score 0 05/19/2024 [facility] [place] of Occupat ional Health - Occupational Stress [...] Refills Last Filled Start Date End Date aspirin 81 mg Oral Tablet, Chewable TAKE 1 TABLET BY MOUTH EVERY DAY 90 Tablet 09/04/2024 documented in this encounter Miscellaneous Notes * Telephone Encounter - Alfreda Samuels APRN - 09/04/2024 8:44 AM EDT Notes reviewed. Refill sent. * Telephone Encounter - Selin Navarro MA - 09/04/2024 8:38 AM EDT patient: Medication Details: Name: Aspirin Tablet Dose: 81 mg Sig: Take 1 tablet by mouth daily Side effects: no Verified Pharmacy: yes Last office visit: 07/17/2024 Next office visit: f/u in 1 year - probation and parole officer list Neurology notes reviewed: yes Need MISSY/MISSY result: [...] LPN BMI (Calculated) < 30 General 32.2(09/04/19 25 10:03 AM EDT) No Carol Ng MD Not going more than 4-5 hours without eating General On track( 022 2:44 PM EDT) No [...] Diagnoses Not on filedocumented in this encounter Discontinued Medications Medication Sig Discontinue Reason Start Date End Da te aspirin 81 mg Oral Tablet, Chewable Take 1 Tablet by mouth daily. 08/29/2023 09/04/2024 documented as of this encounter Care Teams Low Pressure Firer Relationship Specialty Start Date End Date Moise Mares MD [address] [place] [address] JUJU YEBOAH [address] PCP - General Family Medicine 07/10/22 Yu Mullen MD [address] [facility] [place] [id number] Medical Oncologist Internal Medicine-Hematology and Oncology 08/07/23 documented as of this encounter
--- OUTSIDE RECORDS SUMMARY | 2024-09-29 10:12 | XMS_ITS | Clinical Summary ---
Author Organization [facility] Address [address] [facility] [address] [place] [address] Phone Care Team Providers Care Light Truck Driver Name Role Phone Imer Estes MD Unavailable [...]
--- OUTSIDE RECORDS SUMMARY | 2024-09-29 10:12 | XMS_ITS | Encounter Summary ---
Author Organization [facility] [place] [address] Care Team Providers Care Pipe Liner Name Role Phone Moise Mares MD Primary Care Provider [phone] Yu Mullen MD Unavailable Encounter Details Date Type Department Care Team (Latest Contact Info) Description 09/03/2024 Travel Social History Tobacco Use Types Packs/Day [...] Date Recorded PHQ-2 Total Score 0 05/19/2024 [facility] [place] of Occupat ional Health - Occupational Stress [...] on filedocumented in this encounter Care Teams Pipe Liner Relationship Specialty Start Date End Date Moise Mares MD [address] [place] [address] [place] [address] PCP - General Family Medicine 07/10/22 Yu Mullen MD [address] [place] [address] [place] [id number] Medical Oncologist Internal Medicine-Hematology and Oncology 08/07/23 documented as of this encounter
--- OUTSIDE RECORDS SUMMARY | 2024-09-29 10:12 | XMS_ITS | Clinical Summary ---
Author Organization [facility] Address [address] [place] [address] Phone Care Team Providers Care Subway Operator Name Role Phone Moise aMres MD Primary Care Provider [phone] Yu Mullen MD Unavailable Allergies No known active allergies Medications * This document contains information received from the source organization and may not represent a complete record from that organization. cyanocobalamin 1,000 mcg tabletIndications :Vitamin B12 deficiency Take 1 Tab by mouth daily. 2 014 Active cholecalciferol, vitamin D3, 1,000 unit Oral Tablet Take 1 Tab by mouth daily. Active Lancets [facility] MiscIndications:N ewly diagnosed diabetes (HCC) 1 Each by [facility].(Non-Drug; Combo Route) route daily. 100 Each 2 021 Active Blood Sugar Diagnostic [facility] StripIndications: Newly diagnosed diabetes (HCC) 1 Strip by [facility].(Non-Drug; Combo Route) route daily. 100 Each 2 021 Active lisinopriL (PRINIVIL;ZESTRIL ) 20 mg Oral Tablet tabletIndications :Type 2 diabetes mellitus with hyperglycemia, without long-term current use of insulin (HCC),Essential hypertension,Stag e 3 chronic kidney disease, unspecified whether stage 3a or 3b CKD (HCC) Take 1 Tablet by mouth daily. 90 Tablet 3 023 Active ibuprofen (ADVIL;MOTRIN) 800 mg Oral Tablet Take 1 Tablet by mouth 3 times daily as needed. 90 Tablet 023 Active Insulin [place], Disposable, (BD ULTRA-FINE MINI PEN NEEDLE) 31 gauge x 05/25 Misc NeedleIndications :Type 2 diabetes mellitus with hyperglycemia, without long-term current use of insulin ([facility]) Subcutaneous (Inject under the skin) 1 Applicator once a week. 30 Each 2 024 Active omeprazole (PRILOSEC) 20 mg Oral Capsule, Delayed Release(E.C.)Sariah cations:Gastroeso phageal reflux disease, unspecified whether esophagitis present TAKE 1 CAPSULE BY MOUTH EVERY DAY 90 Capsule 2 024 Active metFORMIN (GLUCOPHAGE XR) 500 mg Oral ER 24 hr tabletIndications :Type 2 diabetes mellitus with hyperglycemia, without long-term current use of insulin ([facility]) Take 2 Tablets by mouth 2 times daily (with meals). 360 Tablet 3 024 Active DULoxetine (CYMBALTA) 60 mg Oral Capsule, Delayed Release(E.C.)Sariah cations:Fibromyal nando,Primary osteoarthritis involving multiple joints TAKE 1 CAPSULE BY MOUTH EVERY DAY 90 Capsule 024 Active hydroCHLOROthiazi de 25 mg Oral TabletIndications :Essential hypertension Take 0.5 Tablets by mouth daily. 45 Tablet 024 Active diclofenac (VOLTAREN) 1 % Top Gel Apply 2 g topically 2 times daily. Active cyclobenzaprine (FLEXERIL) 10 mg Oral TabletIndications :Fibromyalgia,Any jessica osteoarthritis involving multiple joints TAKE 1 TABLET BY MOUTH TWICE A DAY 180 Tablet 1 025 Active alendronate (FOSAMAX) 70 mg Oral TabletIndications :Age-related osteoporosis without current pathological fracture Take 1 Tablet by mouth every 7 days. See admin instructions. 12 Tablet 3 025 Active atorvastatin (LIPITOR) 20 mg Oral TabletIndications :Type 2 diabetes mellitus with hyperglycemia, without long-term current use of insulin ([facility]),Family history of coronary artery disease TAKE 1 TABLET BY MOUTH EVERY DAY 100 Tablet 2 025 Active dapagliflozin propanediol (FARXIGA) 10 mg Oral TabletIndications :Type 2 diabetes mellitus with hyperglycemia, without long-term current use of insulin ([facility]),Stage 3a chronic kidney disease (HCC) Take 1 Tablet by mouth daily. 90 Tablet 3 025 Active pregabalin (LYRICA) 100 mg Oral CapsuleIndication s:Neuropathy Take 1 Capsule by mouth 2 times daily. 60 Capsule 1 025 Active gabapentin (NEURONTIN) 300 mg Oral Capsule take 3 capsules by mouth 2 times daily. 025 Active semaglutide 0.25 mg or 0.5 mg (2 mg/3 mL) SubQ Pen InjectorIndicatio ns:Type 2 diabetes mellitus with hyperglycemia, without long-term current use of insulin ([facility]),Stage 3a chronic kidney disease (HCC) Inject 0.5 mg under the skin once a week. 9 mL 3 025 Active aspirin 81 mg Oral Tablet, Chewable TAKE 1 TABLET BY MOUTH EVERY DAY 90 Tablet 025 Active aspirin 81 mg Oral Tablet, Chewable Take 1 Tablet by mouth daily. 30 Tablet 11 024 2024 Discontinued Active Problems Problem Noted Date Diagnosed Date [...] chronic kidney disease 11/16/2020 Assessment & Plan (08/26/2024 8:47 AM EDT): Orders: semaglutide 0.25 mg or 0.5 mg (2 mg/3 mL) SubQ Pen Injector; Inject 0.5 mg under the skin once a week. BASIC METABOLIC PANEL; Future Follow-up BMP. Already on SGLT2 inhibitor. May benefit from Ozempic/semaglutide to help with CKD as well is diabetic control. -Up-to-date on microalbumin -On REED inhibitor Assessment & Plan (05/19/2024 3:46 PM EDT): Orders: BASIC METABOLIC PANEL; Future dapagliflozin propanediol (FARXIGA) 10 mg Oral Tablet; Take 1 Tablet by mouth daily. Type 2 diabetes mellitus wit h hyperglycemia, without long-term current use of insulin 10/27/2020 Overview (10/27/2020): dx'd 10/2020 Assessment & Plan (08/26/2024 8:47 AM EDT): Orders: semaglutide 0.25 mg or 0.5 mg [...] per below as well as weight loss. Assessment & Plan (05/19/2024 3:46 PM EDT): [...] Overview (02/13/2019): Pt's mom (CABG) , dad ([place]), and brother ([place]) Pt with neg nuclear GXT 08/2012 Neg GTX/echo 02/2019 Vitamin B12 deficiency 07/08/2010 Migraines 07/08/2010 Non morbid obesity due to excess calories 2010 Resolved Problems Problem Noted Date Diagnosed Date Resolved Date Right foot pain 01/24/2023 10/15/2023 Numbness and tingling in left arm 12/08/2013 12/11/2013 Speech disturbance 12/08/2013 4 Shingles outbreak 12/08/2013 04/19/2015 Pyelonephritis, acute 03/02/20122012 Encounters Date Type Department Care Team Description 09/04/2024 Refill [facility] Neurology [facility] [address] [place] [address] Wendi Villalta MD Medication Refill 09/03/2024 10:15 AM EDT Office Visit [facility] Podiatry [address] [address] [place] DPDomenico Post-op pain (Primary Dx); Arthritis of right foot; Arthritis of right ankle 09/03/2024 10:10 AM EDT Ancillary Procedure [facility] [address] [id number] [place] DPDomenico Post-op pain 09/03/2024 Travel 09/01/2024 Telephone [facility] [address] [address] Moise Anglin, DPM Other (Foot swelling) 08/28/2024 Results Follow-Up [address] [place] [address] Moise Mares MD BASIC METABOLIC PANEL, HEMOGLOBIN A1C 08/26/2024 8:15 AM EDT Office Visit [address] [place] [address] Moise Mares MD Type 2 diabetes mellitus with hyperglycemia, without long-term current use of insulin (HCC) (Primary Dx); Stage 3a chronic kidney disease (HCC) 08/15/[address] [place] [address] Moise Mares MD Medication Refill 07/31/2024 Orders Only [address] [place] [address] Moise Mares MD Type 2 diabetes mellitus with hyperglycemia, without long-term current use of insulin (HCC) (Primary Dx) 07/29/[address] [place] [address] Moise Mares MD Medication Refill 07/17/2024 11:00 AM EDT Office Visit [facility] Neurology [facility] [address] [place] [address] Wendi Villalta MD Neuropathy (Primary Dx) 07/17/2024 Orders Only [facility] Neurology [facility] [address] [place] [address] Selin Navarro MA Neuropathy 07/16/2024 Travel 07/16/2024 Refill [place] [address] [place] [address] Moise Mares MD Medication Refill 07/11/2024 Orders Only [place] [address] [place] [address] Moise Mares MD Type 2 diabetes mellitus with hyperglycemia, without long-term current use of insulin (HCC) (Primary Dx) 07/10/2024 Orders Only [place] [address] [address] [place] [address] Moise Mares MD Type 2 diabetes mellitus with hyperglycemia, without long-term current use of insulin (HCC) (Primary Dx) from Last 3 Months Immunizations Immunization Administration [...] joint arthrodesis; Surgeon: Moise Anglin DPM; Location: [facility]; Service: Orthopedics Medical devices from [...] Jamie CABG Diabetes Father Heart Disease Father [place] as complica tion after lung surgery High [...] Maternal Grandfather Maternal Grandmother Mother (Age 65) [place] Paternal Aunt 1 Paternal Aunt 2 Alive [...] Date Recorded PHQ-2 Total Score 0 05/19/2024 [facility] [place] of Occupat ional Health - Occupational Stress [...] AM EDT Temperature 36.1 C (97 F) 09/03/2024 10:03 AM EDT Respiratory Rate 18 08/26/2024 8:10 AM EDT Oxygen Saturation 99% 08/26/2024 8:10 AM EDT Inhaled Oxygen Concentration - - Weight 90.3 kg (199 lb) 09/03/2024 10:03 AM EDT Height 167.6 cm (5' 6 ) 09/03/2024 10:03 AM EDT Body Mass Index 32.12 09/03/2024 10:03 AM EDT Plan of Treatment Health Maintenance Due Date Last Done Comments Cologuard 12/26/2008 FIT 12/26/2008 Sigmoidoscopy 12/26/2008 Virtual Colonography 12/26/2008 Zoster (2 of 2) 03/31/2020 02/04/2020 COVID-19 Vaccine ( season) 2023 11/28/2022, 02/01/2021, 06/01/2020, Additional history exists RSV or 60+ (1 - Risk 60-74 years 1-dose series) 2023 Annual Wellness Exam 10/14/2024 10/15/2023 Influenza Vaccine (#1) 2024 , 11/16/2021, 02/01/2021, Additional history exists Hemoglobin A1c 02/25/2025 08/26/2024, 05/10, 05/19/2024, Additional history exists Kidney Health: uACR 05/19/2025 05/19/2024, 05/19/2024, 10/15/2023 Lipids 05/19/2025 05/19/2024, 05/10, 10/15/2023, Additional history exists Kidney Health: eGFR 08/26/2025 08/26/2024, 05/19/2024, 03/24/2024, Additional history exists Diabetic Eye Exam 10/14/2025 10/15/2023, 10/20/2021 Breast Cancer Screening 03/24/2026 03/24/19, 03/13/2022, 01/11/2021, Additional history exists Colon Cancer Screening 05/01/2029 [...] 2:44 PM EDT) No Selin Escoto, GENO Eat within 1-2 hours of waking General On track( 2:44 PM EDT) No Selin Escoto, GENO Keeping carbs at 30-45g per meal, 15g per snack General On track( 2:44 PM EDT) No Selin Escoto, GENO Check fasting glucose daily and document Lifestyle On track( 022 2:44 PM EDT) No Selin Escoto RN HEMOGLOBIN A1C < 7.0 Result Component 6.4( 5 8:35 AM EDT) Carol Yeager MD Medical Devices Implanted Type Area Lean Leader Device Identifier Shelf Expiration Date Model / Serial / Lot Plate Volar Intermediate Dr Right 10 Hole Extra Short - [id number] Implanted:Qty: 1 on 11/07/2016 by Fabio Aquino MD at [facility] Right: Wrist DIANA:ORTHOPED ICS [id number] / / Screw Locking Thread 2.7mm/L16mm - [id number] Implanted:Qty: 1 on 11/07/2016 by Fabio Aquino MD at [facility] Right: Wrist DIANA:ORTHOPED ICS [id number] / / Screw Locking Full Thread T8 2.7 Mm X L18 Mm - [id number] Implanted:Qty: 1 on 11/07/2016 by Fabio Aquino MD at [facility] Right: Wrist DIANA:ORTHOPED ICS [id number] / / Screw Locking T8 Full Thread 2.8mm/L20mm - [id number] Implanted:Qty: 2 on 11/07/2016 by Fabio Aquino MD at [facility] Right: Wrist DIANA:ORTHOPED ICS [id number] / / Screw Bone T8 Full Thread 2.7 Mm X L14 Mm - [id number] Implanted:Qty: 1 on 11/07/2016 by Fabio Aquino MD at [facility] Right: Wrist DIANA:ORTHOPED ICS [id number] / / Bone Screw T8 Full Thread 2.7mm/L16mm - [id number] Implanted:Qty: 2 on 11/07/2016 by Fabio Aquino MD at [facility] Right: Wrist DIANA:ORTHOPED ICS [id number] / / Bone Screw T8 Full Thread 2.7mm/L20mm - [id number] Implanted:Qty: 1 on 11/07/2016 by Fabio Aquino MD at [facility] Right: Wrist DIANA:ORTHOPED ICS [id number] / / Screw Bone Fixos Titanium Short Thread L70 Mm Od7 Mm Midfoot - [id number] Implanted:Qty: 2 on 02/16/2023 by Moise Anglin, DPM at [facility] Right: Foot DIANA:ORTHOPED ICS [id number] / / Kit Augment Injectable 3.0cc - [id number] Implanted:Qty: 1 on 02/16/2023 by Moise Anglin DPM at [facility] Right: Foot Indicative Software MED GRP:[employer] 07/07/2025 [id number] / / [id number] Graft Bone Putty Tensix Dbm Crush Mix 2.5cc Prehydrated W/ C - [id number] Implanted:Qty: 1 on 02/16/2023 by Moise Anglin, DPM at [facility] Right: Foot Eduquia GRP:[employer] 05/10/2023 [id number] / / [id number] Procedures Procedure Name Priority Date/Time Associated Diagnosis Comments XR FOOT RIGHT AP LATERAL AND OBLIQUE STANDING Routine 09/03/2024 10:13 AM EDT Post-op pain HEMOGLOBIN A1C Routine 08/26/2024 8:35 AM EDT Type 2 diabetes mellitus with hyperglycemia, without long-term current use of insulin ([facility]) BASIC METABOLIC PANEL Routine 08/26/2024 8:35 AM [...] hyperglycemia, without long-term current use of insulin ([facility]) MM MAMMO DIGITAL DANK SCREEN BILAT Routine 03/24/2024 10:23 AM EST Encounter for screening mammogram for breast cancer DIABETES EYE EXAM Routine 10/20/2021 ACUTE HEPATITIS PANEL Routine 08/26/2021 10:10 AM EDT Myalgia GMED COLONOSCOPY Routine 05/01/2019 8:30 AM EST from Last 3 Months or Most Recently Relevant to Health Maintenance Results * XR FOOT RIGHT AP LATERAL [...] IMG DIAGNOSTIC IMAGING ORD ERABLES Final Result * (ABNORMAL) HEMOGLOBIN A1C (08/26/2024 8:35 AM EDT) Hgb A1C 6.4(H) 4.2 - 5.6 % 08/26/2024 5:35 PM EDT [facility] [place] Est. Avg Glucose 137 mg/dL 08/26/2024 5:35 PM EDT [employer] Blood VENOUS BLOOD / Unknown Venipuncture / Unknown 08/26/2024 8:35 AM EDT 08/26/2024 8:35 AM EDT Narrative [employer] - 08/26/2024 5:35 PM EDT REFERENCE RANGE: [...] Final Res ult [facility] [address] [facility] , [place] [address] * (ABNORMAL) BASIC METABOLIC PANEL (08/26/2024 8:35 AM EDT) Sodium 138 136 - 145 mmol/L 08/26/2024 5:23 PM EDT [facility] Potassium 4.2 3.5 - 5.0 mmol/L 08/26/2024 5:23 PM EDT [facility] Chloride 105 98 - 107 mmol/L 08/26/2024 5:23 PM EDT [facility] Total CO2 25 22 - 29 mmol/L 08/26/2024 5:23 PM EDT [facility] Anion Gap 8 7 - 16 mmol/L 08/26/2024 5:23 PM EDT [facility] Calcium 9.5 8.8 - 10.4 mg/dL 08/26/2024 5:23 PM EDT [facility] Glucose Lvl 135(H) 70 - 99 mg/dL 08/26/2024 5:23 PM EDT [facility] BUN 10 8 - 23 mg/dL 08/26/2024 5:23 PM EDT [facility] Creatinine 0.99 0.51 - 1.30 mg/dL 08/26/2024 5:23 PM EDT [facility] eGFR (CKD-EPIcr 2020) 65 >=60 mL/min/1.7 3 m2 08/26/2024 5:23 PM EDT [facility] Comment:Estimated GFR was ca lculated using the CKD-EPIcr (2020) equation refit without race. The equation is recommended by the National Kidney Foundation - [place] [employer] of Nephrology Task Force. Blood VENOUS BLOOD / Unknown Venipuncture / Unknown 08/26/2024 8:35 AM EDT 08/26/2024 8:35 AM EDT us Moise Mares MD CHEMISTRY ORDERABLES Final Res ult [facility] [address] [facility] , [place] [address] * LIPID SCREEN (05/19/2024 3:53 PM EDT) Cholesterol 120 <200 mg/dL 05/19/2024 9:04 PM EDT [facility] [employer] Comment: < 200 Desirable 200 - 239 Borderline High >= 240 High Triglyceride 141 <150 mg/dL 05/19/2024 9:04 PM EDT [facility] [employer] [facility] Comment: < 150 Normal 150 - 199 Borderline High 200 - 499 High >= 500 Very High HDL 43 >=40 mg/dL 05/19/2024 9:04 PM EDT [facility] [employer] [facility] Comment: > 60 Optimal 40 - 60 Acceptable < 40 Low LDL Calculated 53 <100 mg/dL 05/19/2024 9:04 PM EDT [facility] [employer] [facility] Comment: < 100 Optimal 100 - 129 Near or above optimal 130 - 159 Borderline High 160 - 189 High >= 190 Very High The National Institutes of Health (NIH) equation is used for all lipid panels that report calculated LDL (LDL-C). Non-HDL-C Calculated 77 <=129 mg/dL 05/19/2024 9:04 PM EDT [facility] Comment: <130 Desirable 130-159 Above Desirable 160-189 Borderline High 190-219 High >= 220 Very High Fasting Specimen? No None 025 9:04 PM EDT [facility] Blood VENOUS BLOOD / Unknown Venipuncture / Unknown 05/19/2024 3:53 PM EDT 05/19/2024 3:53 PM EDT us Moise Mares MD CHEMISTRY ORDERABLES Final Res ult [facility] [address] [facility] , [place] [address] [place] [address] [facility] [address] [place] [address] * MICROALBUMIN/CREATININE RATIO URINE (05/19/2024 3:42 PM EDT) Pathologist [facility] Urine Microalb 46.5 mg/L 05/19/2024 10:25 PM EDT [facility] Urine Creatinine 154.0 mg/dL 05/19/2024 10:25 PM EDT [facility] Ur Microalb/Creat 30 0 - 30 mg/g 05/19/2024 10:25 PM EDT [facility] Urine STRUCTURE OF URINARY TRACT PROPER / Unknown 05/19/2024 3:42 PM EDT 05/19/2024 3:42 PM EDT us Moise Mares MD URINE ORDERABLES Final Result [facility] [address] [facility], [place] [address] [facility] [address] [place] [id number] * (ABNORMAL) MM MAMMO DIGITAL DANK SCREEN BILAT (03/24/2024 10:23 AM EST) Anatomical Region Laterality Modality Breast Bilateral Mammography 03/24/2024 10:2 3 AM EST Impressions 03/25/2024 9:32 AM EST Incomplete: Need additional imaging evaluation ([id number]) RECOMMENDATION: Additional Imaging Breast Ultrasound Right COMMENTS: Narrative 03/25/2024 9:32 AM EST EXAM: MM MAMMO DIGITAL DANK SCREEN BILAT EXAM DATE: 03/24/2024 10:23 AM INDICATION: Z12.31-Encounter for screening mammogram for malignant neoplasm of [id number] COMPARISON STUDIES: Compared with prior studies, the most recent being 03/13/2022 MM MAMMO DIGITAL DANK DIAGN BILAT at [facility] 01/11/2021 MM MAMMO DIGITAL DANK SCREEN BILAT at [facility] 08/07/2017 MM MAMMO DIGITAL SCREENING W CAD BILAT at [facility] TISSUE DENSITY: There are scattered areas of [...] Z12.31-Encounter for screening mammogram for malignantneoplasm of [id number]-CM COMPARISON STUDIES: Compared with prior studies, the most recent being 03/13/2022 MM MAMMO DIGITAL DANK DIAGN BILAT at [facility] 01/11/2021 MM MAMMO DIGITAL DANK SCREEN BILAT at [facility] 08/07/2017 MM MAMMO DIGITAL SCREENING W CAD BILAT at [facility] TISSUE DENSITY: There are scattered areas of fibroglandular density. FINDINGS: There is an oval circumscribed 8 mm mass in the lower innerquadrant right breast. There are no internal microcalcifications or associated distortion. There is no mammographic evidence of malignancy in the leftbreast. IMPRESSION: Incomplete: Need additional imaging evaluation ([id number]) RECOMMENDATION: Additional Imaging Breast Ultrasound Right COMMENTS: Moise Mares MD IMG MAMMOGRAPHY ORDERABLES Fin al Result * DIABETES EYE EXAM (10/20/2021) Pathologist [facility] Left Diabetic Retinopathy Not Present Present/Not Present [...] ve Non-Reacti ve 08/26/2021 3:14 PM EDT [facility] Blood VENOUS BLOOD / Unknown Venipuncture / Unknown 08/26/2021 10:10 AM EDT 08/26/2021 10:10 AM EDT Carol Ng MD CHEMISTRY ORDERABLES Final Resu lt Performing Organization Address [facility] Co de Phone Number [facility] [address] [facility], [place] [address] * GMED COLONOSCOPY (05/01/2019 8:30 AM EST) 05/01/2019 8:30 AM EST Impressions [facility] - 05/01/2019 8:54 AM EST Polyps (2 mm to 4 mm) in the splenic flexure. (Polypectomy). Internal and external hemorrhoids. Plan: Await pathology results Colonoscopy in 5 or 10 years depending on pathology results. This section is an excerpt of the full report. Justin Todd MD GI PROCEDURE ORDERABLES Fi nal Result Performing Organization Address [facility] Co de Phone Number [facility] [address] [place] [address] from Last 3 Months or Most Recently Relevant to Health Maintenance Insurance [employer] COMP [employer] WORK[employer] COMP WORKERS' COMP [employer] WORKERS' COMP Advance Directives For more information, please contact: [phone] * Full Code (Latest Code Status on File) Date Activated Date Inactivated Comments 03/02/2012 6:18 AM 03/04/2012 3:12 PM Care Teams Subway Operator Relationship Specialty Start Date End Date Moise Mares MD [address] [place] [address] [place] [address] PCP - General Family Medicine 07/10/22 Yu Mullen MD [address] [place] [address] Medical Oncologist Internal Medicine-Hematology and Oncology 08/07/23
--- OUTSIDE RECORDS SUMMARY | 2024-09-29 10:12 | XMS_ITS | Encounter Summary ---
Author Organization [place] [address] Care Team Providers Care Guest Relations Associate Name Role Phone Moise Mares MD Primary Care Provider [phone] Yu Mullen MD Unavailable [phone] Encounter Details Date Type Department Care Team (Late st Contact Info) Description 07/31/2024 Orders Only [facility] [address] [place] [address] Moise Mares MD [address] [place] [address] [place] [address] Type 2 diabetes mellitus with hyperglycemia, [...] Date Recorded PHQ-2 Total Score 0 05/19/2024 [facility] [place] of Occupat ional Health - Occupational Stress [...] documented as of this encounter Care Teams Guest Relations Associate Relationship Specialty Start Date End Date Moise Mares MD [address] [place] [address] [address] [place] [id number] PCP - General Family Medicine 07/10/22 Yu Mullen MD [address] [place] [address] [place] [address] Medical Oncologist Internal Medicine-Hematology and Oncology 08/07/23 documented as of this encounter
--- OUTSIDE RECORDS SUMMARY | 2024-09-29 10:12 | XMS_ITS | Encounter Summary ---
Author Organization [place] [address] Care Team Providers Care Motor Vehicle Technician Name Role Phone Moise Mares MD Primary Care Provider [phone] Yu Mullen MD Unavailable [phone] Reason for Visit * Reason Onset Date Comments Medication Refill 07/29/2024 Encounter Details Date Type Department Care Team (Late st Contact Info) Description 07/29/2024 Refill [facility] [place] [address] Moise Mares MD [address] [place] [address] [place] [address] Medication Refill Social History Tobacco Use [...] Date Recorded PHQ-2 Total Score 0 05/19/2024 [facility] [place] of Occupat ional Health - Occupational Stress [...] (HCC) documented in this encounter Care Teams Motor Vehicle Technician Relationship Specialty Start Date End Date Moise Mares MD [address] [place] [address] [place] [address] PCP - General Family Medicine 07/10/22 Yu Mullen MD [address] [place] [address] [place] [id number] Medical Oncologist Internal Medicine-Hematology and Oncology 08/07/23 documented as of this encounter
--- OUTSIDE RECORDS SUMMARY | 2024-09-29 10:12 | XMS_ITS | Encounter Summary ---
Author Organization [place] [address] Care Team Providers Care Machine Splitter Name Role Phone Moise Mares MD Primary Care Provider [phone] Yu Mullen MD Unavailable [phone] Reason for Visit * Reason Onset Date Comments Other 09/01/2024 Foot swelling Encounter Details Date Type Department Care Team (Late st Contact Info) Description 09/01/2024 Telephone SEP Podiatry [facility] [address] [place] [address] [place] [address] Moise Anglin, [facility] [address] [facility] [address] [place] [address] Other (Foot swelling) Social History Tobacco Use Types Packs/Day Years [...] Total Score 0 05/19/2024 [facility] [place] of Occupat ional Health - Occupational Stress [...] Ernesto Bourgeois LPN documented in this encounter Miscellaneous Notes * Telephone Encounter - Laith Carranza MA - 09/01/2024 11:02 AM EDT Patient is going to see Dr. Horn on 09/03/24. * Telephone Encounter - Ginny Engle MA - 09/01/2024 11:00 AM EDT Please advise * Telephone Encounter - Marleni Sigala - 09/01/2024 10:28 AM EDT Patient foot swollen where surgery previously was, the next available appt is 09/30 where I scheduled her, She is going on vacation 09/11 and will be on her feet a lot, she is just wondering if she could be seen sooner? I told her his schedule is booked but she wanted me to check anyway. documented in this encounter Plan of Treatment [...] Result Component 6.4( 5 8:35 AM EDT) No Carol Ng MD documented as of this encounter Visit Diagnoses Not on filedocumented in this encounter Care Teams Machine Splitter Relationship Specialty Start Date End Date Moise Mares MD [address] [place] [address] DR [place] [id number] PCP - General Family Medicine 07/10/22 Yu Mullen MD [address] [place] [address] [place] [address] Medical Oncologist Internal Medicine-Hematology and Oncology 08/07/23 documented as of this encounter
--- OUTSIDE RECORDS SUMMARY | 2024-09-29 10:12 | XMS_ITS | Encounter Summary ---
Author Organization [place] [address] Care Team Providers Care Network Management Specialist Name Role Phone Moise Mares MD Primary Care Provider [phone] Yu Mullen MD Unavailable [phone] Encounter Details Date Type Department Care Team (Late st Contact Info) Description 08/28/2024 Results Follow-Up SEP [place] [address] [place] [address] Moise Mares MD [address] [place] [address] [place] [address] BASIC METABOLIC PANEL, HEMOGLOBIN A1C Social History Tobacco Use Types Packs/Day Years [...] Date Recorded PHQ-2 Total Score 0 05/19/2024 [facility] [place] of Occupat ional Health - Occupational Stress [...] Ernesto Bourgeois LPN documented in this encounter Progress Notes * Moise Mares MD - 08/28/2024 8:28 AM EDT Her A1c was in a good range at 6.4%. Kidney function electrolytes were normal. documented in this encounter Plan of [...] on filedocumented in this encounter Care Teams Network Management Specialist Relationship Specialty Start Date End Date Moise Mares MD [address] [place] [address] [place] [address] PCP - General Family Medicine 07/10/22 Yu Mullen MD [address] [place] [address] Medical Oncologist Internal Medicine-Hematology and Oncology 08/07/23 documented as of this encounter
--- OUTSIDE RECORDS SUMMARY | 2024-09-29 10:13 | XMS_ITS | Encounter Summary ---
Author Organization [place] [address] Care Team Providers Care Manufacturing Quality Technician Name Role Phone Moise Mares MD Primary Care Provider [phone] Yu Mullen MD Unavailable [phone] Reason for Visit * Reason Onset Date Comments Medication Refill 08/15/2024 Encounter Details Date Type Department Care Team (Late st Contact Info) Description 08/15/2024 Refill SEP Mac [facility] [place] [address] Moise Mares MD [address] [place] [address] [place] [address] Medication Refill Social History Tobacco Use [...] Date Recorded PHQ-2 Total Score 0 05/19/2024 [facility] [place] of Occupat ional Health - Occupational Stress [...] once a week. 2 mL 2 08/15/2024 08/26/2024 documented in this encounter Plan of Treatment [...] documented as of this encounter Care Teams Manufacturing Quality Technician Relationship Specialty Start Date End Date Moise Mares MD [address] [place] [address] [address] [place], [place] [id number] PCP - General Family Medicine 07/10/22 Yu Mullen MD [address] [place] [address] [place], [place] [id number] Medical Oncologist Internal Medicine-Hematology and Oncology 08/07/23 documented as of this encounter
--- OUTSIDE RECORDS SUMMARY | 2024-09-29 10:13 | XMS_ITS | Encounter Summary ---
Author Organization [place] [address] Care Team Providers Care Lead Refinery Supervisor Name Role Phone Carol Ng MD Primary Care Provider [phone] Selin Escoto RN Unavailable Unavailable Moise Mares MD Primary Care Provider [phone] Yu Mullen MD Unavailable [phone] Encounter Details Date Type Department Care Team (Late st Contact Info) Description 05/01/2019 Lab Requisition [facility] [place] [address] Justin Delaney MD [address] [place] [address] Encounter for screening for malignant neoplasm of [...] 140/90 Blood Pressure 140/92(2024 8:10 AM EDT) Candice Little LPN Maintain a [...] AM EST) CASE REPORT Surgical Pathology Case: [id number] Authorizing Provider: Justin Delaney MD Collected: 05/01/2019 0830 Ordering Location: [facility] Received: 05/01/2019 2815 Pathologist: Reggie Cabrera MD Specimen: Splenic flexure 05/02/2019 9:08 AM EST [facility] CLINICAL HISTORY Screening colon, low risk. 05/02/2019 9:08 AM EST [facility] FINAL DIAGNOSIS Splenic Flexure Colon Polyps: - Colonic Mucosa With Edema, Lymphoid Aggregates (Lymphoid Polyps). - Negative For Adenomatous Change. - Focal Early Hyperplastic Change of Mucosal Surface. 05/02/2019 9:08 AM EST [facility] at 0908 EST GROSS DESCRIPTION Received in formalin labeled with the patient s name and s plenic flexure colon polyps are multiple fragments of duncan tissue ranging from 0.3 to 0.5 cm in greatest dimension. Entirely submitted in one cassette./ ZN 05/02/2019 9:08 AM EST [facility] MICROSCOPIC DESCRIPTION Microscopic examination is performed and the findings corroborate the diagnosis. 05/02/2019 9:08 AM EST [facility] FLOW CYTOMETRY SUMMARY 05/02/2019 9:08 AM EST [facility] EMBEDDED IMAGES 05/02/2019 9:08 AM EST [facility] Tissue STRUCTURE OF LEFT COLIC FLEXURE / Unknown 05/01/2019 8:30 AM EST 05/01/2019 3:47 PM EST us Justin Todd MD PATHOLOGY ORDERABLES Final Result Performing Organization Address City/State/[facility] Co de Phone Number [facility] [address] [place], [place] [id number] [address] documented in this encounter Visit Diagnoses Diagnosis Encounter for screening for malignant neoplasm of colon Special screening for malignant neoplasms, colon documented in this encounter Care Teams Lead Refinery Supervisor Relationship Specialty Start Date End Date Carol Ng MD PCP - General 07/08/10 07/09/22 Moise Mares MD [address] [place] [address] [place] [address] PCP - General Family Medicine 07/10/22 Selin Escoto, RN Chore Tender 08/22/21 12/29/21 Yu Mullen MD [address] [place] [address] Medical Oncologist Internal Medicine-Hematology and Oncology 08/07/23 documented as of this encounter
--- OUTSIDE RECORDS SUMMARY | 2024-09-29 10:13 | XMS_ITS | Referral Summary ---
Author Organization [facility] Address [address] [place] [address] [place] [address] Care Team Providers Care Stewardesses Teacher Name Role Phone Unavailable Primary Care Provider [...]
--- OUTSIDE RECORDS SUMMARY | 2024-09-29 10:13 | XMS_ITS | Encounter Summary ---
Author Organization [place] [address] Care Team Providers Care Slack Cooper Name Role Phone Carol Ng MD Primary Care Provider [phone] Selin Escoto RN Unavailable Unavailable Moise Mares MD Primary Care Provider [phone] Yu Mullen MD Unavailable Encounter Details Date Type Department Care Team (Late st Contact Info) Description 05/01/2019 Orders Only SEP Gastro CV [address] [facility] [address] [place] [address] Justin Delaney MD [address] [place] [address] Social History Tobacco Use Types Packs/Day Years [...] AM EST) 05/01/2019 8:30 AM EST Impressions [facility] - 05/01/2019 8:54 AM EST Polyps (2 mm to 4 mm) in the splenic flexure. (Polypectomy). Internal and external hemorrhoids. Plan: Await pathology results Colonoscopy in 5 or 10 years depending on pathology results. This section is an excerpt of the full report. us Justin Todd MD GI PROCEDURE ORDERABLES Fi nal Result [facility] [address] [place], [place] [id number] documented in this encounter Visit Diagnoses Not on filedocumented in this encounter Care Teams Slack Cooper Relationship Specialty Start Date End Date Carol Ng MD PCP - General 07/08/10 07/09/22 Moise Mares MD [address] [place] [address] [place] [address] PCP - General Family Medicine 07/10/22 Selin Escoto, RN Greenhouse Assistant 08/22/21 12/29/21 Yu Mullen MD [address] [place] [address] Medical Oncologist Internal Medicine-Hematology and Oncology 08/07/23 documented as of this encounter
--- OUTSIDE RECORDS SUMMARY | 2024-09-29 10:13 | XMS_ITS | Encounter Summary ---
Author Organization [place] [address] Care Team Providers Care Indirect Sales Exec Name Role Phone Moise Mares MD Primary Care Provider [phone] Yu Mullen MD Unavailable [phone] Reason for Visit * Reason Onset Date Comments Medication Refill 07/28/2022 Encounter Details Date Type Department Care Team (Late st Contact Info) Description 07/28/2022 Refill SEP Neurology [facility] [address] [place] [address] Wendi Villalta MD [address] [place] [address] Medication Refill Social History Tobacco [...] Date Recorded PHQ-2 Total Score 0 11/02/2021 [facility] [employer] of Occupat ional Health - Occupational Stress [...] on filedocumented in this encounter Care Teams Indirect Sales Exec Relationship Specialty Start Date End Date Moise Mares MD [address] [place] [address] [place], [place] [address] PCP - General Family Medicine 07/10/22 Yu Mullen MD [address] [place] [address] [place] [id number] Medical Oncologist Internal Medicine-Hematology and Oncology 08/07/23 documented as of this encounter
--- OUTSIDE RECORDS SUMMARY | 2024-09-29 10:13 | XMS_ITS | Clinical Summary ---
Author Organization [facility] Address [facility] [address] [place] [address] Care Team Providers Care Dishcloth Folder Name Role Phone Unavailable Primary Care Provider [...] PCV) 12/26/2013 Shingrix (#1) 12/26/2013 Influenza Vaccine (#1) 2024 RSV Vaccine (60+ or ) (1 [...]
--- NOTE | 2024-09-29 10:22 | A.OFFVIS_ITS ---
[facility] Disclaimer: The information contained in this section may have been updated after the patient was seen, as this information can be updated by other users. Medical History Vitamin D deficiency Vitamin B12 deficiency Diabetes mellitus Osteoporosis Fibromyalgia Migraines Liver disease HTN (hypertension) HLD (hyperlipidemia) GERD (gastroesophageal reflux disease) Chronic kidney disease Arthritis Family History Other COPD (chronic obstructive pulmonary disease) Diabetes Heart disease Hyperlipidemia Hypertension Lung cancer Social History Smoking Status: Never smoker alcohol intake: never current occupational status: other Travel in the last 8 weeks?: None PM Subjective & Objective Subjective Subjective:: Patient is a pleasant 58-year-old female who presents today for follow-up. She does rate her pain today as 7 out of 10. Patient states it is her left knee that is giving her problems but is starting to have a little bit more right knee pain 2. Patient states that she has been on vacation and feels like this may have aggravated some of her symptoms. Patient did previously have a left intra- articular injection back in July that did provide 90% improvement. Patient is prescribed compounded cream that she has been still using but ran out and would like additional refills. Her Braxton has been reviewed and is appropriate. Review of Systems: General: No recent weight changes, no fever, no sleep disturbances Respiratory: No cough, no shortness of air, no recurring pulmonary infections Cardiovascular/peripheral vascular: No chest pain, no palpitations, no edema, no shortness of breath Gastrointestinal: No new onset incontinence, normal bowel movements reported Genitourinary: No new onset incontinence Musculoskeletal: Knee pain Psychiatric: [Normal mood/affect] Neurological: [Denies weakness in extremities], [denies balance issues] Pain at rest (0-10 scale): 7 Objective Objective:: Physical Exam: General: Alert and oriented x3, no acute distress, pleasant and cooperative Lungs: Respirations even and unlabored, symmetrical chest expansion Eyes: PERRL Musculoskeletal: Flexion and extension of bilateral knees somewhat guarded secondary to pain, [antalgic gait noted] Neurological: Speech clear, no gross sensory deficit Has patient had previous pain injection?: No Conservative treatment options previously tried: Home exercise plan Length of treatment: Longer than 12 weeks Meds Home Medications and Allergies Home Medications ?Medication ?Instructions ?Recorded ?Confirmed ?Type aspirin 81 mg chewable tablet 81 mg PO DAILY Blood Thi nner 01/14/24 09/29/24 History atorvastatin 20 mg tablet 20 mg PO DAILY Cholesterol 1 03/15/23 09/29/24 History cyclobenzaprine 10 mg tablet 10 mg PO BID Pain 2 4 09/29/24 History diclofenac sodium 1 % topical gel 1 - 2 g topical BID Pain 01/14/24 09/29/24 History duloxetine 60 mg capsule,delayed 60 mg PO DAILY MOOD 1 03/15/23 09/29/24 History release gabapentin 300 mg capsule 300 mg PO DIRECTED Pain 1 03/15/23 09/29/24 History hydrochlorothiazide 25 mg tablet 12.5 mg PO DAILY Flui d 01/14/24 09/29/24 History metformin 500 mg tablet,extended 1,000 mg PO DAILY Trisha betes 01/14/24 09/29/24 History release 24 hr omeprazole 20 mg capsule,delayed 20 mg PO DAILY STOMAC H 01/14/24 09/29/24 His tory release semaglutide 0.25 mg or 0.5 mg (2 0.25 - 0.5 mg SQ D IRECTED 01/14/24 09/29/24 History mg/3 mL) subcutaneous pen injector Diabetes (Ozempic) New Prescriptions to Start Prescriptions: Allergies Allergy/AdvReac Type Severity Reaction Status Date / Time No Known Allergies Allergy Verified 06/17/24 09:49 Assessment and Plan *Assessment and plan (1) Bilateral knee pain: Status: Acute Qualifiers: Chronicity: chronic Qualified Code(s): M25.561 - Pain in right knee; M25.562 - Pain in left knee; G89.29 - Other chronic pain Category: Medical Code(s): M25.561 - Pain in right knee; M25.562 - Pain in left knee Plan I did discuss with patient that I will increase the concentration of her compounded cream and see her back in 2 weeks. We did discuss in future we will definitely plan on repeating additional injections to see if she does have better improvement. Patient agrees with this plan of care. Patient has been instructed to contact the clinic with any concerns before the next appointment. Dr. Sanchez has reviewed this note and agrees with this plan of care. This note was dictated using voice recognition software and make contain errors or omissions. All injections are used with Lidocaine, Bupivacaine and dexamethasone. Occasionally urine drug screen is needed to verify patient's compliance with our office pain contract. This is ordered based off specific treatments related to chronic pain with the potential to abuse certain medications.
== END 2024-09-29 23:59 | disposition home or self-care (01) ==
LOC: SC.PAIN 10:03
PROVIDERS: PCP Family Medicine; Visit Provider Nurse Practitioner Family
DX: M25.561 Pain in right knee (principal); M25.562 Pain in left knee; G89.29 Other chronic pain
CPT/HCPCS: 99212; G0463

== ENCOUNTER 2024-10-13 13:50 | Outpatient (POV) | payer OTHER, SELFPAY ==
--- OUTSIDE RECORDS SUMMARY | 2024-08-26 08:15 | XMS_ITS | Encounter Summary ---
Author Organization [place] [address] Care Team Providers Care Clay Artist Name Role Phone Moise Mares MD Primary Care Provider [phone] Yu Mullen MD Unavailable [phone] Reason for Visit * Reason Comments Follow-up Regarding Brooke santana Encounter Details Date Type Department Care Team (Late Contact Info) Description 08/26/2024 8:15 AM EDT Office Visit [facility] [place] [address] [place] [address] Moise Mares MD [address] [place] [address] [place] [address] Type 2 diabetes mellitus with hyperglycemia, [...] Date Recorded PHQ-2 Total Score 0 05/19/2024 [facility] of Occupat ional Health - Occupational Stress [...] 08/26/2024 5:35 PM EDT [facility] Est. Avg Glucose 137 mg/dL 08/26/2024 5:35 PM EDT [facility] Blood VENOUS BLOOD / Unknown Venipuncture / Unknown 08/26/2024 8:35 AM EDT 08/26/2024 8:35 AM EDT Narrative [facility], [facility] - 08/26/2024 5:35 PM EDT REFERENCE [...] ORDERABLES Final Res ult [facility] [address] [facility] , [place] [address] * (ABNORMAL) BASIC METABOLIC PANEL (08/26/2024 8:35 AM EDT) Sodium 138 136 - 145 mmol/L 08/26/2024 5:23 PM EDT [facility] Potassium 4.2 3.5 - 5.0 mmol/L 08/26/2024 5:23 PM EDT [facility] Chloride 105 98 - 107 mmol/L 08/26/2024 5:23 PM EDT [facility] Total CO2 25 22 - 29 mmol/L 08/26/2024 5:23 PM EDT [facility] Anion Gap 8 7 - 16 mmol/L 08/26/2024 5:23 PM EDT [facility] Calcium 9.5 8.8 - 10.4 mg/dL 08/26/2024 5:23 PM EDT [facility] Glucose Lvl 135(H) 70 - 99 mg/dL 08/26/2024 5:23 PM EDT [facility] BUN 10 8 - 23 mg/dL 08/26/2024 5:23 PM EDT [facility] Creatinine 0.99 0.51 - 1.30 mg/dL 08/26/2024 5:23 PM EDT [employer] eGFR (CKD-EPIcr 2020) 65 >=60 mL/min/1.7 3 m2 08/26/2024 5:23 PM EDT [employer] Comment:Estimated GFR was ca lculated using the CKD-EPIcr (2020) equation refit without race. The equation is recommended by the National Kidney Foundation - [employer] [place] [employer] of Nephrology Task Force. Blood VENOUS BLOOD / Unknown Venipuncture / Unknown 08/26/2024 8:35 AM EDT 08/26/2024 8:35 AM EDT us Moise Mares MD CHEMISTRY ORDERABLES Final Res ult [employer] [address] [facility] , [place] [address] documented in this encounter Visit Diagnoses Diagnosis [...] may reflect changes made after this encounter. TRULICITY 1.5 mg/0.5 mL SubQ Pen Injector INJECT 0.5 ML SUBCUTANEOUSLY ONE TIME PER WEEK 05/26/2024 gabapentin (NEURONTIN) 300 mg Oral Capsule take 3 capsules by mouth 2 times daily. 06/30/2024 5 added in this encounter Care Teams Clay Artist Relationship Specialty Start Date End Date Moise Mares MD [address] [place] [address] [address] [place], [place] [address] PCP - General Family Medicine 07/10/22 Yu Mullen MD [address] [place] [address] CELENA RENÉE [place] [address] Medical Oncologist Internal Medicine-Hematology and Oncology 08/07/23 documented as of this encounter
--- OUTSIDE RECORDS SUMMARY | 2024-09-03 10:10 | XMS_ITS | Encounter Summary ---
Author Organization [place] [address] Care Team Providers Care Press Clippings Cutter And Paster Name Role Phone Moise Mares MD Primary Care Provider [phone] Yu Mullen MD Unavailable [phone] Encounter Details Date Type Department Care Team (Late st Contact Info) Description 09/03/2024 10:10 AM EDT Ancillary Procedure [facility] Podiatry [place] [address] [place] [address] [place] [phone] [place], [facility] [address] [facility] [facility] [address] [place] [address] [place] [phone] Post-op pain Social History Tobacco Use [...] Date Recorded PHQ-2 Total Score 0 05/19/2024 [facility] [place] of Occupat ional Health - Occupational Stress [...] pain documented in this encounter Care Teams Press Clippings Cutter And Paster Relationship Specialty Start Date End Date Moise Mares MD [address] [facility] [address] [place] [id number] PCP - General Family Medicine 07/10/22 Yu Mullen MD [address] [facility] [place] [id number] Medical Oncologist Internal Medicine-Hematology and Oncology 08/07/23 documented as of this encounter
--- OUTSIDE RECORDS SUMMARY | 2024-09-03 10:15 | XMS_ITS | Encounter Summary ---
Author Organization [place] [address] Care Team Providers Care Reel Cart Operator Name Role Phone Moise Mares MD Primary Care Provider [phone] Yu Mullen MD Unavailable [phone] Reason for Referral * In Office Procedure (Routine) - Authorization Not Needed Specialty Diagnoses / Procedures Referred By Alexia gonzalez Referred To Contact Diagnoses Arthritis of right foot Arthritis of right ankle Procedures [place] ARTHROCENTESIS ASPIR&/INJ INTERM JT/BURS W/O US [place] D[facility] [address] [address] Phone: tel: fax: Referral ID Status Reason Start Date Expiration Date Visits Requested Visits Authorized [id number] Authorization Not Needed 09/04/2024 09/04/2025 1 1 Reason for Visit * Reason Comments Foot Pain right foot Encounter Details Date Type Department Care Team (Late st Contact Info) Description 09/03/2024 10:15 AM EDT Office Visit SEP Podiatry [address] [place] [phone] [place] DPM [address] [facility] [place] [address] [place] [phone] Post-op pain (Primary Dx); Arthritis of right foot; Arthritis of right ankle Social History Tobacco Use Types Packs/Day Years [...] Date Recorded PHQ-2 Total Score 0 05/19/2024 [facility] [place] of Occupat ional Health - Occupational Stress [...] Sign Reading Time Taken Comments Blood Pressure - - Pulse - - Temperature 36.1 C (97 F) 09/03/2024 10:03 AM EDT Respiratory Rate - - Oxygen Saturation - - Inhaled Oxygen Concentration - - Weight 90.3 kg (199 lb) 09/03/2024 10:03 AM EDT Height 167.6 cm (5' 6 ) 09/03/2024 10:03 AM EDT Body Mass Index 32.12 09/03/2024 10:03 AM EDT documented in this encounter Functional Status * Is the person deaf or does he/she have serious difficulty hearing? Answer Date of Assessment Author No 11/02/2021 9:50 AM EDT Ernesto Bourgeois LPN * Is the person blind or does he/she have serious difficulty seeing even when wearing glasses? Answer Date of Assessment Author No 11/02/2021 9:50 AM EDT Ernesto Bourgeois LPN * Does this person have serious difficulty walking or climbing stairs? Answer Date of Assessment Author No 11/02/2021 9:50 AM EDT Ernesto Bourgeois LPN * Does this person have difficulty dressing or bathing? Answer Date of Assessment Author No 11/02/2021 9:50 AM EDT Ernesto Bourgeois LPN * Because of a physical, mental or emotional condition, does this person have difficulty doing errands alone such as visiting a doctor's office or shopping? Answer Date of Assessment Author No 11/02/2021 9:50 AM DEANNAT Ernesto Bourgeois LPN documented as of this encounter Mental Status * Because of a physical, mental or emotional condition, does this person have serious difficulty concentrating, remembering or making decisions? Answer Entry Date Author No 11/02/2021 9:50 AM Ernesto Randall LPN documented in this encounter Progress Notes * [place] DPM - 09/03/2024 10:15 AM EDT Subjective: Patient ID: Rosario Nolan is a 58 y.o. female. Chief Complaint: Foot Pain (right foot ) HPI 58 y.o. female complains of Foot Pain (right foot ) in Pt has some pain to the right foot/ankle. She states it slowly developed. She also noticed some swelling. About 1 year ago she had he heel fixated per Dr. Anglin. She was progressing well. She deniesany recent trauma to the area except for a dog chain getting wrapped around her ankle. Otherwise she feels fine. Outpatient Medications Marked as Taking for the 09/03/24 encounter (Office Visit) with [place] DPM Medication Sig Dispense Refill alendronate (FOSAMAX) 70 mg Oral Tablet Take 1 Tablet by mouth every 7 days. See admin instructions. 12 Tablet 3 [DISCONTINUED] aspirin 81 mg Oral Tablet, Chewable Take 1 Tablet by mouth daily. 30 Tablet 11 atorvastatin (LIPITOR) 20 mg Oral Tablet TAKE 1 TABLET BY MOUTH EVERY DAY 100 Tablet 2 [facility] Strip by [facility].(Non-Drug; Combo Route) route daily. 100 Each 2 [...] 0 gabapentin (NEURONTIN) 300 mg Oral Capsule take 3 capsules by mouth 2 times daily. hydroCHLOROthiazide 25 mg Oral Tablet Take 0.5 Tablets by mouth daily. 45 Tablet 0 ibuprofen (ADVIL;MOTRIN) 800 mg Oral Tablet Take 1 Tablet by mouth 3 times daily as needed. 90 Tablet 0 Insulin [place], Disposable, (BD ULTRA-FINE MINI PEN NEEDLE) 31 gauge x 3/16 [facility] Needle Subcutaneous (Inject under the skin) 1 Applicator once a week. 30 Each [address] [facility] 1 Each by [facility].(Non-Drug; Combo Route) route daily. 100 Each 2 [...] BY MOUTH EVERY DAY 90 Capsule 2 pregabalin (LYRICA) 100 mg Oral Capsule Take 1 Capsule by mouth 2 times daily. 60 Capsule 1 semaglutide 0.25 mg or 0.5 mg (2 mg/3 mL) SubQ Pen Injector Inject 0.5 mg under the skin once a week. 9 mL 3 Review of Systems Constitutional: Negative for fatigue and fever. Eyes: Negative for visual disturbance. Respiratory: Negative for shortness of breath. Cardiovascular: Negative for chest pain and leg swelling. Gastrointestinal: Negative for nausea and vomiting. Musculoskeletal: Negative for gait problem and joint swelling. Skin: Negative for rash and wound. Neurological: Positive for numbness (feet). Negative for dizziness, weakness, light-headedness and headaches. Hematological: Bruises/bleeds easily. All other systems reviewed and are negative. Objective: Vitals: 09/03/24 1003 Temp: 97 ??F (36.1 ??C) TempSrc: Forehead Weight: 199 lb (90.3 kg) Height: 5' 6 (1.676 m) Body mass index is 32.12 kg/m??. Physical Exam Constitutional: Appearance: She is well-developed. Cardiovascular: Comments: DP and PT pulses are palpable, CFT digit 1-5 b/l < 3 sec. Toes have good color with nocyanosis or clubbing. Pulmonary: Effort: Pulmonary effort is normal. Musculoskeletal: Right foot: Normal range of motion. No swelling, deformity, tenderness or crepitus. Left foot: Normal range of motion. No swelling, deformity, tenderness or crepitus. Comments: No crepitus with ROM to the right ankle. Skin: General: Skin is warm and dry. Coloration: Skin is not pale. Findings: No erythema or rash. Comments: Skin: Skin is warm and dry. No rash noted. No erythema. No pallor. No open wounds appreciated. Some edema noted to the lateral aspect of the right foot. Some pain with palpation to this area andlateral gutter of the ankle. Neurological: Mental Status: She is alert and oriented to person, place, and time. Comments: Neurological: The pt is alert and oriented to person, place, and time. Coordination is adequate for pt's age. No involuntary movements. Light touch intact b/l Assessment and Plan: Rosario Nolan was seen today for foot pain. Diagnoses and all orders for this visit: Post-op pain - XR FOOT RIGHT AP LATERAL AND OBLIQUE STANDING; Future - triamcinolone acetonide (KENALOG-40) injection 20 mg - BUPivacaine HCl (MARCAINE/SENSORCAINE) 0.5 % (5 mg/mL) injection 5 mg Arthritis of right foot - [place] ARTHROCENTESIS ASPIR&/INJ INTERM JT/BURS W/O US Arthritis of right ankle - [place] ARTHROCENTESIS ASPIR&/INJ INTERM JT/BURS W/O US Discussed condition with the pt. Reviewed x-rays with the pt. Recommend a steroid injection. Pt agreed. A steroid injection was given to the lateral aspect of the foot around the ankle. She is to watch her blood sugars. Wrap the ankle with an Giovanni bandage. Return to her cast boot. She is going on vacation soon. She is to follow up with Dr. Anglin. Return for follow-up. documented in this encounter Plan of Treatment Scheduled Orders Name Type Priority Associated Diagnoses Orde r Schedule W[place] ARTHROCENTESIS ASPIR&/INJ INTERM JT/BURS W/O US [place] Charge Routine Arthritis of right foot Arthritis of right ankle Ordered: 09/04/2024 documented as of this encounter Goals Goal [...] Ng MD documented as of this encounter Results * XR FOOT RIGHT AP LATERAL AND OBLIQUE STANDING (09/03/2024 10:13 AM EDT) Anatomical Region Laterality Modality Foot Radiographic Ethel ging Narrative 09/04/2024 12:40 PM EDT 3 views right foot History: pain to right foot. Previous surgery Findings: No fractures or dislocations noted. No retrograde movement of the fixation. Decrease in ankle joint. Infracalcaneal and traction spur noted. [place] DPM IMG DIAGNOSTIC IMAGING ORD ERABLES Final Result documented in this encounter Visit Diagnoses Diagnosis Post-op pain- Primary Other acute postoperative pain Arthritis of right foot Unspecified arthropathy, ankle and foot Arthritis of right ankle Unspecified arthropathy, ankle and foot Post-op pain Other acute postoperative pain documented in this encounter Administered Medications Inactive Administered Medications - up to 1 most recent administrations Medication Order MAR Action Action Date Dose Rate Site BUPivacaine HCl (MARCAINE/SENSORCAINE) 0.5 % (5 mg/mL) injection 5 mg 5 mg (1 mL), Tendon Sheath Injection, ONCE, 1 dose, On Sun09/03/24 at 1145, Dx: 1. Post-op painIndications:Post-op pain Given 09/03/2024 11:42 AM EDT 5 mg triamcinolone acetonide (KENALOG-40) injection 20 mg 20 mg, Tendon Sheath Injection, ONCE, 1 dose, On Sun09/03/24 at 1145, Dx: 1. Post-op painIndications:Post-op pain Given 09/03/2024 11:42 AM EDT 20 mg documented in this encounter Care Teams Reel Cart Operator Relationship Specialty Start Date End Date Moise Mares MD [address] [place] [address] DR [place] [id number] PCP - General Family Medicine 07/10/22 uY Mullen MD [address] [place] [address] CELENA [place]INCHILLA [place] [address] Medical Oncologist Internal Medicine-Hematology and Oncology 08/07/23 documented as of this encounter
--- OUTSIDE RECORDS SUMMARY | 2024-10-13 13:53 | XMS_ITS | Encounter Summary ---
Author Organization [place] [address] Care Team Providers Care Social Work Program Coordinator Name Role Phone Moise Marse MD Primary Care Provider Yu Mullen MD Unavailable Reason for Visit * Reason Onset Date Comments Medication Refill 10/03/2024 Encounter Details Date Type Department Care Team (Late st Contact Info) Description 10/03/2024 Refill SEP Neurology [facility] [address] [place] [address] Wendi Villalta MD [address] [place] [address] Medication Refill Social History Tobacco Use Types [...] Date Recorded PHQ-2 Total Score 0 05/19/2024 [facility] [place] of Occupat ional Health - Occupational Stress [...] by mouth 2 times daily. 60 Capsule 5 10/06/2024 documented in this encounter Miscellaneous Notes * Telephone Encounter - Selin Navarro MA - 10/03/2024 1:02 PM EDT Medication Details: Name: Pregabalin Tablet Dose: 100 mg Sig: Take 1 capsule by mouth BID Side effects: no Verified Pharmacy: yes Last office visit: 07/17/2024 Next office visit: on list for 1 year follow up Neurology notes reviewed: yes Need MISSY/MISSY result: [...] per meal, 15g per snack General On track(06/21/2 022 2:44 PM EDT) No Selin Escoto, RN Check fasting glucose daily and document [...] Da te gabapentin (NEURONTIN) 300 mg Oral Capsule take 3 capsules by mouth 2 times daily. Cancelled by 06/30/2024 10/06/2024 pregabalin (LYRICA) 100 mg Oral CapsuleIndications:Neur opathy Take 1 Capsule by mouth 2 times daily. Reorder 07/17/2024 10/03/2024 documented as of this encounter Care Teams Social Work Program Coordinator Relationship Specialty Start Date End Date Moise Mares MD [address] [place] [address] [place] [address] PCP - General Family Medicine 07/10/22 Yu Mullen MD [address] [place] [address] Medical Oncologist Internal Medicine-Hematology and Oncology 08/07/23 documented as of this encounter
--- OUTSIDE RECORDS SUMMARY | 2024-10-13 13:53 | XMS_ITS | Clinical Summary ---
Author Organization [facility] Address [address] [facility] [address] [place] [address] Phone Care Team Providers Care Cisco Unified Communications Engineer Name Role Phone Imer Estes MD Unavailable [...]
--- OUTSIDE RECORDS SUMMARY | 2024-10-13 13:53 | XMS_ITS | Encounter Summary ---
Author Organization [place] [address] Care Team Providers Care Software Security Consultant Name Role Phone Moise Mares MD Primary Care Provider [phone] Yu Mullen MD Unavailable [phone] Reason for Visit * Reason Comments Medication Refill Encounter Details Date Type Department Care Team (Late Contact Info) Description 09/04/2024 Refill SEP Neurology [facility] [address] [place] [address] Wendi Villalta MD [address] [place] [address] Medication Refill Social History Tobacco Use Types [...] Date Recorded PHQ-2 Total Score 0 05/19/2024 [facility] [place] of Occupat ional Health - Occupational Stress [...] office visit: f/u in 1 year - cotton sampler list Neurology notes reviewed: yes Need MISSY/MISSY [...] 32.2(09/04/19 25 10:03 AM EDT) No Carol gN MD Not going more than 4-5 hours [...] documented as of this encounter Care Teams Software Security Consultant Relationship Specialty Start Date End Date Moise Mares MD [address] [place] [address] [place] [address] PCP - General Family Medicine 07/10/22 Yu Mullen MD [address] [facility] [place] [id number] Medical Oncologist Internal Medicine-Hematology and Oncology 08/07/23 documented as of this encounter
--- OUTSIDE RECORDS SUMMARY | 2024-10-13 13:53 | XMS_ITS | Encounter Summary ---
Author Organization [place] [address] Care Team Providers Care Furniture Delivery Driver Name Role Phone Moise Mares MD Primary Care Provider [phone] Yu Mullen MD Unavailable [phone] Reason for Visit * Reason Onset Date Comments Medication Refill 10/11/2024 Encounter Details Date Type Department Care Team (Late st Contact Info) Description 10/11/2024 Refill SEP Neurology [facility] [address] [place] [address] Wendi Villalta MD [address] [place] [address] Medication Refill Social History Tobacco Use Types [...] Date Recorded PHQ-2 Total Score 0 05/19/2024 [facility] [place] of Occupat ional Health - Occupational Stress [...] of unspecified site documented in this encounter Care Teams Furniture Delivery Driver Relationship Specialty Start Date End Date Moise Mares MD [address] [place] [address] [place] [address] PCP - General Family Medicine 07/10/22 Yu Mullen MD [address] [place] [address] [place], [place] [id number] Medical Oncologist Internal Medicine-Hematology and Oncology 08/07/23 documented as of this encounter
--- OUTSIDE RECORDS SUMMARY | 2024-10-13 13:54 | XMS_ITS | Encounter Summary ---
Author Organization [facility] [place] [address] Care Team Providers Care Commercial Drone Pilot Name Role Phone Moise Mares MD Primary Care Provider [phone] Yu Mullen MD Unavailable [phone] Encounter Details Date Type Department Care Team [...] Date Recorded PHQ-2 Total Score 0 05/19/2024 [facility] [place] of Occupat ional Health - Occupational Stress [...] on filedocumented in this encounter Care Teams Commercial Drone Pilot Relationship Specialty Start Date End Date Moise Mares MD [address] [place] [address] [place] [address] PCP - General Family Medicine 07/10/22 Yu Mullen MD [address] [place] [address] [place] [id number] Medical Oncologist Internal Medicine-Hematology and Oncology 08/07/23 documented as of this encounter
--- OUTSIDE RECORDS SUMMARY | 2024-10-13 13:54 | XMS_ITS | Encounter Summary ---
Author Organization [place] [address] Care Team Providers Care Rolling Mill Operator Helper Name Role Phone Carol Ng MD Primary Care Provider [phone] Selin Escoto RN Unavailable Unavailable Moise Mares MD Primary Care Provider [phone] Yu Mullen MD Unavailable [phone] Encounter Details Date Type Department Care Team (Late st Contact Info) Description 05/01/2019 Lab Requisition [facility] [place] [address] Justin Delaney MD [address] [place] [address] Encounter for screening for malignant neoplasm of [...] AM EST) CASE REPORT Surgical Pathology Case: [id number] Authorizing Provider: Justin Delaney MD Collected: 05/01/2019 0830 Ordering Location: [facility] Received: 05/01/2019 4911 Pathologist: Reggie Cabrera MD Specimen: Splenic flexure 05/02/2019 9:08 AM EST [facility] CLINICAL HISTORY Screening colon, low risk. 05/02/2019 9:08 AM EST [facility] FINAL DIAGNOSIS Splenic Flexure Colon Polyps: - Colonic Mucosa With Edema, Lymphoid Aggregates (Lymphoid Polyps). - Negative For Adenomatous Change. - Focal Early Hyperplastic Change of Mucosal Surface. 05/02/2019 9:08 AM EST [facility] at 0908 EST GROSS DESCRIPTION Received in formalin labeled with the patient s name and s plenic flexure colon polyps are multiple fragments of duncan tissue ranging from 0.3 to 0.5 cm in greatest dimension. Entirely submitted in one cassette./ ZN 05/02/2019 9:08 AM EST [facility] MICROSCOPIC DESCRIPTION Microscopic examination is performed and the findings corroborate the diagnosis. 05/02/2019 9:08 AM EST [facility] FLOW CYTOMETRY SUMMARY 05/02/2019 9:08 AM EST [facility] EMBEDDED IMAGES 05/02/2019 9:08 AM EST [facility] Tissue STRUCTURE OF LEFT COLIC FLEXURE / Unknown 05/01/2019 8:30 AM EST 05/01/2019 3:47 PM EST us Justin Todd MD PATHOLOGY ORDERABLES Final Result Performing Organization Address City/State/[facility] Co de Phone Number [facility] [address] [place], [place] [id number] [address] documented in this encounter Visit Diagnoses Diagnosis Encounter for screening for malignant neoplasm of colon Special screening for malignant neoplasms, colon documented in this encounter Care Teams Rolling Mill Operator Helper Relationship Specialty Start Date End Date Carol Ng MD PCP - General 07/08/10 07/09/22 Moise Mares MD [address] [place] [address] [place] [address] PCP - General Family Medicine 07/10/22 Selin Escoto, RN Clinical Therapist 08/22/21 12/29/21 Yu Mullen MD [address] [place] [address] Medical Oncologist Internal Medicine-Hematology and Oncology 08/07/23 documented as of this encounter
--- OUTSIDE RECORDS SUMMARY | 2024-10-13 13:54 | XMS_ITS | Clinical Summary ---
Author Organization Healthcare Address [address] [place] [address] Care Team Providers Care Gold Blower Name Role Phone Pcp, No Primary Care [...] 12/26/2008 UKY-Zoster Vaccines (1 of 2) 12/26/2013 [id number] Vaccine ( season) 2023 11/28/2022, 02/01/2021, 06/01/2020, [...] patient's age to complete this topic Insurance [facility] Care Teams Gold Blower Relationship Specialty Start Date End Date Pcp, [place] [address] PCP - General Family Medicine 11/20/23
--- OUTSIDE RECORDS SUMMARY | 2024-10-13 13:54 | XMS_ITS | Encounter Summary ---
Author Organization [place] [address] Care Team Providers Care Reforestation Worker Name Role Phone Moise Mares MD Primary Care Provider [phone] Yu Mullen MD Unavailable [phone] Reason for Visit * Reason Onset Date Comments Medication Refill 07/28/2022 Encounter Details Date Type Department Care Team (Late st Contact Info) Description 07/28/2022 Refill [facility] Neurology [facility] [address] [place] [address] Wendi Villalta MD [address] [address] Medication Refill Social History Tobacco Use Types [...] Date Recorded PHQ-2 Total Score 0 11/02/2021 [facility] [place] of Occupat ional Health - Occupational Stress [...] on filedocumented in this encounter Care Teams Reforestation Worker Relationship Specialty Start Date End Date Moise Mares MD [address] [place] [address] DR [place], [place] [address] PCP - General Family Medicine 07/10/22 Yu Mullen MD [address] [place] [address] [place] [id number] Medical Oncologist Internal Medicine-Hematology and Oncology 08/07/23 documented as of this encounter
--- OUTSIDE RECORDS SUMMARY | 2024-10-13 13:54 | XMS_ITS | Clinical Summary ---
Author Organization [facility] Address [address] [place] [address] Phone Care Team Providers Care Case Mgr Name Role Phone Moise Mares MD Primary Care Provider [phone] Yu Mullen MD Unavailable [phone] Allergies No known active allergies Medications * This document contains information received from the source organization and may not represent a complete record from that organization. cyanocobalamin 1,000 mcg tabletIndications: Vitamin B12 deficiency Take 1 Tab by mouth daily. 2 08/21/19 14 Active cholecalciferol, vitamin D3, 1,000 unit Oral Tablet Take 1 Tab by mouth daily. Active Lancets [facility] MiscIndications:Ne wly diagnosed diabetes (HCC) 1 Each by [facility].(Non-Drug; Combo Route) route daily. 100 Each 2 11/17/19 21 Active Blood Sugar Diagnostic [facility] StripIndications:N ewly diagnosed diabetes (HCC) 1 Strip by [facility].(Non-Drug; Combo Route) route daily. 100 Each 2 [...] needed. 90 Tablet 09/29/19 23 Active Insulin [place], Disposable, (BD ULTRA-FINE MINI PEN NEEDLE) 31 gauge x 05/25 Misc NeedleIndications: Type 2 diabetes mellitus with hyperglycemia, without long-term current use of insulin ([facility]) Subcutaneous (Inject under the skin) 1 Applicator once a week. 30 Each 2 03/30/19 24 Active omeprazole (PRILOSEC) 20 mg Oral Capsule, Delayed Release(E.C.)Indic ations:Gastroesoph ageal reflux disease, unspecified whether esophagitis present TAKE 1 CAPSULE BY MOUTH EVERY DAY 90 Capsule 2 10/02/19 24 Active metFORMIN (GLUCOPHAGE XR) 500 mg Oral ER 24 hr tabletIndications: Type 2 diabetes mellitus with hyperglycemia, without long-term current use of insulin ([facility]) Take 2 Tablets by mouth 2 times [...] hyperglycemia, without long-term current use of insulin ([facility]),Family history of coronary artery disease TAKE 1 TABLET BY MOUTH EVERY DAY 100 Tablet 2 04/09/19 25 Active dapagliflozin propanediol (FARXIGA) 10 mg Oral TabletIndications: Type 2 diabetes mellitus with hyperglycemia, without long-term current use of insulin ([facility]),Stage 3a chronic kidney disease (HCC) Take 1 Tablet by mouth daily. 90 Tablet 3 05/20/19 25 Active semaglutide 0.25 mg or 0.5 mg (2 mg/3 mL) SubQ Pen InjectorIndication s:Type 2 diabetes mellitus with hyperglycemia, without long-term current use of insulin (HCC),Stage 3a chronic kidney disease (HCC) Inject 0.5 mg under the skin once a week. 9 mL 3 08/27/19 25 Active aspirin 81 mg Oral Tablet, Chewable TAKE 1 TABLET BY MOUTH EVERY DAY 90 Tablet 09/05/19 25 Active pregabalin (LYRICA) 100 mg Oral CapsuleIndications :Neuropathy Take 1 Capsule by mouth 2 times daily. 60 Capsule 5 10/07/19 25 Active Active Problems Problem Noted Date Diagnosed Date [...] Overview (02/13/2019): Pt's mom (CABG) , dad (MT), and brother (MT) Pt with neg nuclear GXT 08/2012 Neg GTX/echo 02/2019 Vitamin B12 deficiency 07/08/2010 Migraines 07/08/2010 Non morbid obesity due to excess calories 2010 Resolved Problems Problem Noted Date Diagnosed Date Resolved Date Right foot pain 01/24/2023 10/15/2023 Numbness and tingling in left arm 12/08/2013 12/11/2013 Speech disturbance 12/08/2013 4 Shingles outbreak 12/08/2013 04/19/2015 Pyelonephritis, acute 03/02/2012 01/15/ 2013 Encounters Date Type Department Care Team Description 10/11/2024 Refill [facility] Neurology [facility] [address] [place] [address] Wendi Villalta MD Medication Refill 10/03/2024 Refill [facility] Neurology [facility] [address] [place] [address] Wendi Villalta MD Medication Refill 09/04/2024 Refill [facility] Neurology [facility] [address] [place] [address] Wendi Villalta MD Medication Refill 09/03/2024 10:15 AM EDT Office Visit [facility] [address] [phone] [place], DPDomenico Post-op pain (Primary Dx); Arthritis of right foot; Arthritis of right ankle 09/03/2024 10:10 AM EDT Ancillary Procedure [facility] [address] [address] [place], DPM Post-op pain 09/03/2024 Travel 09/01/2024 Telephone [facility] [address] [address] Moise Anglin, DPM Other (Foot swelling) 08/28/2024 Results Follow-Up [facility] [address] [place] [address] Moise Mares MD BASIC METABOLIC PANEL, HEMOGLOBIN A1C 08/26/2024 8:15 AM EDT Office Visit [facility] [address] [place] [address] Moise Mares MD Type 2 diabetes mellitus with hyperglycemia, without long-term current use of insulin (HCC) (Primary Dx); Stage 3a chronic kidney disease (HCC) 08/15/[address] [place] [address] Moise Mares MD Medication Refill 07/31/2024 Orders Only [place] [address] [place] [address] Moise Mares MD Type 2 diabetes mellitus with hyperglycemia, without long-term current use of insulin (HCC) (Primary Dx) 07/29/2024 Refill [place] [address] [place] [address] Moise Mares MD Medication Refill 07/17/2024 11:00 AM EDT Office Visit [facility] Neurology [facility] [address] [place] [address] Wendi Villalta MD Neuropathy (Primary Dx) 07/17/2024 Orders Only [facility] Neurology [facility] [address] [place] [address] Selin Navarro MA Neuropathy 07/16/2024 Travel 07/16/2024 Refill [place] [address] [place] [address] Moise Mares MD Medication Refill from Last 3 Months Immunizations Immunization Administration Dates Next Due Hepatitis B (Recombinant), Adjuvanted 09/05/2021 ,11/16/2020 Influenza Seasonal Injectable PF 12/07/2013 Influenza Vaccine, Unspecifi ed Formulation 11/16/2021,12/02/2019,03/27/2017,03/02 Influenza Virus Vaccine Quad rivalant, Flublok 02/01/2021 LAST MANUFACTURED 2010-Pneum ococcal Conjugate 7 Valent 11/30/2010 Moderna SARS-CoV-2 [...] MEDIAL MENISCECTOMY; Surgeon: Bladimir [place] MD; Location: [facility] MAIN OR; Service: Orthopedics ARTHRODESIS 02/16/2023 Foot/Ankle/Right Right foot subtalar joint arthrodesis; Surgeon: Moise Anglin DPM; Location: [facility] MAIN OR; Service: Orthopedics Medical devices from [...] Jamie CABG Diabetes Father Heart Disease Father [place] as complica tion after lung surgery High [...] Maternal Grandfather Maternal Grandmother Mother (Age 65) [place] Paternal Aunt 1 Paternal Aunt 2 Alive [...] Date Recorded PHQ-2 Total Score 0 05/19/2024 [facility] of Occupat ional Health - Occupational Stress [...] 11/30/2010 Meningococcal B Vaccine Aged Out No juan samger eligible based on patient's age to complete [...] 8:35 AM EDT) No Carol Ng MD Medical Devices Implanted Type Area Oil Agent Device Identifier Shelf Expiration Date Model / Serial / Lot Plate [address] Right 10 Hole Extra Short - [id number] Implanted:Qty: 1 on 11/07/2016 by Fabio Aquino MD at [facility] Right: Wrist DIANA:ORTHOPED ICS [id number] / / Screw Locking Thread 2.7mm/L16mm - [id number] Implanted:Qty: 1 on 11/07/2016 by Fabio Aquino MD at [facility] Right: Wrist DIANA:ORTHOPED ICS [id number] / / Screw Locking Full Thread T8 2.7 Mm X L18 Mm - [id number] Implanted:Qty: 1 on 11/07/2016 by Fabio Aquino MD at [facility] Right: Wrist DIANA:ORTHOPED ICS [id number] / / Screw Locking T8 Full Thread 2.8mm/L20mm - [id number] Implanted:Qty: 2 on 11/07/2016 by Fabio Aquino MD at [facility] Right: Wrist DIANA:ORTHOPED ICS [id number] / / Screw Bone T8 Full Thread 2.7 Mm X L14 Mm - [id number] Implanted:Qty: 1 on 11/07/2016 by Fabio Aquino MD at [facility] Right: Wrist DIANA:ORTHOPED ICS [id number] / / Bone Screw T8 Full Thread 2.7mm/L16mm - [id number] Implanted:Qty: 2 on 11/07/2016 by Fabio Aquino MD at [facility] Right: Wrist DIANA:ORTHOPED ICS [id number] / / Bone Screw T8 Full Thread 2.7mm/L20mm - [id number] Implanted:Qty: 1 on 11/07/2016 by Fabio Aquino MD at [facility] Right: Wrist DIANA:ORTHOPED ICS [id number] / / Screw Bone Fixos Titanium Short Thread L70 Mm Od7 Mm Midfoot - [id number] Implanted:Qty: 2 on 02/16/2023 by Moise Anglin DPM at [facility] Right: Foot DIANA:ORTHOPED ICS [id number] / / Kit Augment Injectable 3.0cc - [id number] Implanted:Qty: 1 on 02/16/2023 by Moise Anglin DPM at [facility] Right: Foot School Yourself MED GRP:Conductor 07/07/2025 [id number] / / [id number] Graft Bone Putty Tensix Dbm Crush Mix 2.5cc Prehydrated W/ C - [id number] Implanted:Qty: 1 on 02/16/2023 by Moise Anglin DPM at [facility] Right: Foot HOLMAN MED GRP:Conductor 05/10/2023 PHG-[id number] / / [id number] Procedures Procedure Name Priority Date/Time Associated [...] - 5.6 % 08/26/2024 5:35 PM EDT [facility] Est. Avg Glucose 137 mg/dL 08/26/2024 5:35 PM EDT [facility] Blood VENOUS BLOOD / Unknown Venipuncture / Unknown 08/26/2024 8:35 AM EDT 08/26/2024 8:35 AM EDT Narrative [facility] - 08/26/2024 5:35 PM EDT REFERENCE RANGE: Normal: 4.0-5.6% Pre-diabetes: 5.7-6.4% Provisional diagnosis of diabetes: >6.4% Hgb F>10% and anything which shortens red cell survival, such as hemolytic anemia, or unstable hemoglobin variants such as HbSS, HbSC, or HbCC, will lower the HbA1c value associated with a given level of glycemic control. Moise Mares MD CHEMISTRY ORDERABLES Final Res ult [facility] [address] [facility] , [place] [address] * (ABNORMAL) BASIC METABOLIC PANEL (08/26/2024 8:35 AM EDT) Sodium 138 136 - 145 mmol/L 08/26/2024 5:23 PM EDT [facility] Potassium 4.2 3.5 - 5.0 mmol/L 08/26/2024 5:23 PM EDT [facility] Chloride 105 98 - 107 mmol/L 08/26/2024 5:23 PM EDT [facility] Total CO2 25 22 - 29 mmol/L 08/26/2024 5:23 PM EDT [facility] Anion Gap 8 7 - 16 mmol/L 08/26/2024 5:23 PM EDT [facility] Calcium 9.5 8.8 - 10.4 mg/dL 08/26/2024 5:23 PM EDT [facility] Glucose Lvl 135(H) 70 - 99 mg/dL 08/26/2024 5:23 PM EDT [facility] BUN 10 8 - 23 mg/dL 08/26/2024 5:23 PM EDT [facility] Creatinine 0.99 0.51 - 1.30 mg/dL 08/26/2024 5:23 PM EDT [facility] eGFR (CKD-EPIcr 2020) 65 >=60 mL/min/1.7 3 m2 08/26/2024 5:23 PM EDT [facility] Comment:Estimated GFR was ca lculated using the CKD-EPIcr (2020) equation refit without race. The equation is recommended by the National Kidney Foundation - [place] Society of Nephrology Task Force. Blood VENOUS BLOOD / Unknown Venipuncture / Unknown 08/26/2024 8:35 AM EDT 08/26/2024 8:35 AM EDT us Moise Mares MD CHEMISTRY ORDERABLES Final Res ult [facility] [address] [facility] , [place] [address] * LIPID SCREEN (05/19/2024 3:53 PM EDT) Cholesterol 120 <200 mg/dL 05/19/2024 9:04 PM EDT [facility] Comment: < 200 Desirable 200 - 239 Borderline High >= 240 High Triglyceride 141 <150 mg/dL 05/19/2024 9:04 PM EDT [facility] Comment: < 150 Normal 150 - 199 Borderline High 200 - 499 High >= 500 Very High HDL 43 >=40 mg/dL 05/19/2024 9:04 PM EDT [facility] Comment: > 60 Optimal 40 - 60 Acceptable < 40 Low LDL Calculated 53 <100 mg/dL 05/19/2024 9:04 PM EDT [facility] Comment: < 100 Optimal 100 - 129 Near or above optimal 130 - 159 Borderline High 160 - 189 High >= 190 Very High The National Institutes of Health (NIH) equation is used for all lipid panels that report calculated LDL (LDL-C). Non-HDL-C Calculated 77 <=129 mg/dL 05/19/2024 9:04 PM EDT [facility] Comment: <130 Desirable 130-159 Above Desirable 160-189 Borderline High 190-219 High >= 220 Very High Fasting Specimen? No None 025 9:04 PM EDT [facility] Blood VENOUS BLOOD / Unknown Venipuncture / Unknown 05/19/2024 3:53 PM EDT 05/19/2024 3:53 PM EDT Moise Mares MD CHEMISTRY ORDERABLES Final Res ult [facility] [address] [facility], [place] [address] [place] [address] [facility] [address] [place] [address] * MICROALBUMIN/CREATININE RATIO URINE (05/19/2024 3:42 PM EDT) Urine Microalb 46.5 mg/L 05/19/2024 10:25 PM EDT [facility] Urine Creatinine 154.0 mg/dL 05/19/2024 10:25 PM EDT [facility] Ur Microalb/Creat 30 0 - 30 mg/g 05/19/2024 10:25 PM EDT [facility] Urine STRUCTURE OF URINARY TRACT PROPER / Unknown 05/19/2024 3:42 PM EDT 05/19/2024 3:42 PM EDT us Moise Mares MD URINE ORDERABLES Final Result [facility] [address] [facility], [place] [address] [facility] [address] [place] [address] * (ABNORMAL) MM MAMMO DIGITAL DANK SCREEN BILAT (03/24/2024 10:23 AM EST) Anatomical Region Laterality Modality Breast Bilateral Mammography 03/24/2024 10:2 3 AM EST Impressions 03/25/2024 9:32 AM EST Incomplete: Need additional imaging evaluation ([id number]) RECOMMENDATION: Additional Imaging Breast Ultrasound Right COMMENTS: Narrative 03/25/2024 9:32 AM EST EXAM: MM MAMMO DIGITAL DANK SCREEN BILAT EXAM DATE: 03/24/2024 10:23 AM INDICATION: Z12.31-Encounter for screening mammogram for malignant neoplasm of vadets-HOL-37-CM COMPARISON STUDIES: Compared with prior studies, the most recent being 03/13/2022 MM MAMMO DIGITAL ADNK DIAGN BILAT at [facility] 01/11/2021 MM MAMMO DIGITAL DANK SCREEN BILAT at [facility] 08/07/2017 MM MAMMO DIGITAL SCREENING W CAD BILAT at [facility] TISSUE DENSITY: There are scattered [...] Z12.31-Encounter for screening mammogram for malignantneoplasm of ndzbyj-QVB-70-CM COMPARISON STUDIES: Compared with prior studies, the most recent being 03/13/2022 MM MAMMO DIGITAL DANK DIAGN BILAT at [facility] 01/11/2021 MM MAMMO DIGITAL DANK SCREEN BILAT at [facility] 08/07/2017 MM MAMMO DIGITAL SCREENING W CAD BILAT at [facility] TISSUE DENSITY: There are scattered areas of fibroglandular density. FINDINGS: There is an oval circumscribed 8 mm mass in the lower innerquadrant right breast. There are no internal microcalcifications or associated distortion. There is no mammographic evidence of malignancy in the leftbreast. IMPRESSION: Incomplete: Need additional imaging evaluation ([id number]) RECOMMENDATION: Additional Imaging Breast Ultrasound Right COMMENTS: Moise Mares MD IMG MAMMOGRAPHY ORDERABLES Fin al Result * DIABETES EYE EXAM (10/20/2021) Left Diabetic Retinopathy Not Present Present/Not Present SEP OFFICE Right Diabetic Retinopathy Not Present Present/Not Present SEP OFFICE Historical Provider HEALTH MAINTENANCE Final Res ult Performing Organization Address City/State/[facility] Co de Phone Number SEP OFFICE * ACUTE HEPATITIS PANEL (08/26/2021 [...] 3:14 PM EDT [facility] Blood VENOUS BLOOD / Unknown Venipuncture / Unknown 08/26/2021 10:10 AM EDT 08/26/2021 10:10 AM EDT Carol Ng MD CHEMISTRY ORDERABLES Final Resu lt [facility] [place] [employer] [address] [facility], [place] [address] * GMED COLONOSCOPY (05/01/2019 8:30 AM EST) 05/01/2019 8:30 AM EST Impressions [facility] - 05/01/2019 8:54 AM EST Polyps (2 mm to 4 mm) in the splenic flexure. (Polypectomy). Internal and external hemorrhoids. Plan: Await pathology results Colonoscopy in 5 or 10 years depending on pathology results. This section is an excerpt of the full report. us Justin Todd MD GI PROCEDURE ORDERABLES Fi nal Result Performing Organization Address [facility] [place] [address] from Last 3 Months or Most Recently Relevant to Health Maintenance [facility] [employer] WORK[employer]' COMP GENERIC WORKERS' COMP [employer] GENERIC WORKERS' COMP Advance Directives For more information, please contact: [phone] * Full Code (Latest Code Status on File) Date Activated Date Inactivated Comments 03/02/2012 6:18 AM 03/04/2012 3:12 PM Care Teams Case Mgr Relationship Specialty Start Date End Date Moise Mares MD [address] [place] [address] [place] [address] PCP - General Family Medicine 07/10/22 Yu Mullen MD [address] [place] [address] Medical Oncologist Internal Medicine-Hematology and Oncology 08/07/23
--- OUTSIDE RECORDS SUMMARY | 2024-10-13 13:54 | XMS_ITS | Referral Summary ---
Author Organization [facility] Address [address] [place] [address] [place] [address] Care Team Providers Care Grade Recorder Name Role Phone Unavailable Primary Care Provider [...]
--- OUTSIDE RECORDS SUMMARY | 2024-10-13 13:54 | XMS_ITS | Encounter Summary ---
Author Organization [place] [address] Care Team Providers Care Grease Worker Name Role Phone Moise Mares MD Primary Care Provider [phone] Yu Mullen MD Unavailable [phone] Reason for Visit * Reason Onset Date Comments Other 09/01/2024 Foot swelling Encounter Details Date Type Department Care Team (Late st Contact Info) Description 09/01/2024 Telephone [facility] [place] [address] [place] [address] [place] [address] Moise Anglin, [facility] [address] [facility] [address] [place] [address] Other (Foot swelling) Social History Tobacco Use [...] Recorded PHQ-2 Total Score 0 05/19/2024 [facility] of Occupat ional Health - Occupational Stress [...] on filedocumented in this encounter Care Teams Grease Worker Relationship Specialty Start Date End Date Moise Mares MD [address] [place] [address] [address] [place] [id number] PCP - General Family Medicine 07/10/22 Yu Mullen MD [address] [place] [address] [place] [address] Medical Oncologist Internal Medicine-Hematology and Oncology 08/07/23 documented as of this encounter
--- OUTSIDE RECORDS SUMMARY | 2024-10-13 13:54 | XMS_ITS | Encounter Summary ---
Author Organization [place] [address] Care Team Providers Care Physical Fitness Teacher Name Role Phone Moise Mares MD Primary Care Provider [phone] Yu Mullen MD Unavailable [phone] Reason for Visit * Reason Onset Date Comments Medication Refill 08/15/2024 Encounter Details Date Type Department Care Team (Late st Contact Info) Description 08/15/2024 Refill SEP Mac [facility] [place] [address] Moise Mares MD [address] [place] [address] [place] [address] Medication Refill Social History Tobacco Use [...] Recorded PHQ-2 Total Score 0 05/19/2024 [facility] of Occupat ional Health - Occupational Stress [...] documented as of this encounter Care Teams Physical Fitness Teacher Relationship Specialty Start Date End Date Moise Mares MD [address] [place] [address] [place], [place] [id number] PCP - General Family Medicine 07/10/22 Yu Mullen MD [address] [place] [address] [place], [place] [id number] Medical Oncologist Internal Medicine-Hematology and Oncology 08/07/23 documented as of this encounter
--- OUTSIDE RECORDS SUMMARY | 2024-10-13 13:54 | XMS_ITS | Clinical Summary ---
Author Organization [facility] Address [facility] FELIPE G[place] [address] Care Team Providers Care Counseling Services Director Name Role Phone Unavailable Primary Care Provider [...]
--- OUTSIDE RECORDS SUMMARY | 2024-10-13 13:54 | XMS_ITS | Encounter Summary ---
Author Organization [place] [address] Care Team Providers Care Printer Repair Technician Name Role Phone Moise Mares MD Primary Care Provider [phone] Yu Mullen MD Unavailable Encounter Details Date Type Department Care Team (Late st Contact Info) Description 08/28/2024 Results Follow-Up [facility] [place] [address] [place] [address] Moise Mares MD [address] [place] [address] [place] [address] BASIC METABOLIC PANEL, HEMOGLOBIN A1C Social [...] Date Recorded PHQ-2 Total Score 0 05/19/2024 [facility] of Occupat ional Health - Occupational Stress [...] on filedocumented in this encounter Care Teams Printer Repair Technician Relationship Specialty Start Date End Date Moise Mares MD [address] [place] [address] [place] [address] PCP - General Family Medicine 07/10/22 Yu Mullen MD [address] [place] [address] Medical Oncologist Internal Medicine-Hematology and Oncology 08/07/23 documented as of this encounter
--- OUTSIDE RECORDS SUMMARY | 2024-10-13 13:54 | XMS_ITS | Encounter Summary ---
Author Organization [place] [address] Care Team Providers Care High Rigger Name Role Phone Carol Ng MD Primary Care Provider [phone] Selin Escoto RN Unavailable Unavailable Moise Mares MD Primary Care Provider [phone] Yu Mullen MD Unavailable [phone] Encounter Details Date Type Department Care Team (Late st Contact Info) Description 05/01/2019 Orders Only SEP Gastro [facility] [address] [facility] [address] [place] [address] Justin Delaney MD [address] [place] [address] Social History Tobacco Use Types Packs/Day Years [...] AM EST) 05/01/2019 8:30 AM EST Impressions [facility] - 05/01/2019 8:54 AM EST Polyps (2 mm to 4 mm) in the splenic flexure. (Polypectomy). Internal and external hemorrhoids. Plan: Await pathology results Colonoscopy in 5 or 10 years depending on pathology results. This section is an excerpt of the full report. us Justin Todd MD GI PROCEDURE ORDERABLES Fi nal Result [facility] [address] [place], [place] [id number] documented in this encounter Visit Diagnoses Not on filedocumented in this encounter Care Teams High Rigger Relationship Specialty Start Date End Date Carol Ng MD PCP - General 07/08/10 07/09/22 Moise Mares MD [address] [place] [address] [place] [address] PCP - General Family Medicine 07/10/22 Selin Escoto, RN Medical Van Driver 08/22/21 12/29/21 Yu Mullen MD [address] [place] [address] Medical Oncologist Internal Medicine-Hematology and Oncology 08/07/23 documented as of this encounter
--- NOTE | 2024-10-13 14:26 | EXP.PAIN.SOA ---
[facility] Disclaimer: The information contained in this section may have been updated after the patient was seen, as this information can be updated by other users. Medical History Vitamin D deficiency Vitamin B12 deficiency Diabetes mellitus Osteoporosis Fibromyalgia Migraines Liver disease HTN (hypertension) HLD (hyperlipidemia) GERD (gastroesophageal reflux disease) Chronic kidney disease Arthritis Family History Other COPD (chronic obstructive pulmonary disease) Diabetes Heart disease Hyperlipidemia Hypertension Lung cancer Social History Smoking Status: Never smoker alcohol intake: never current occupational status: other Travel in the last 8 weeks?: None PM Subjective & Objective Subjective Subjective:: Patient is a pleasant 58-year-old female who presents today for worsening left knee pain. She rates it a 10 out of 10. Patient states that she has very limited range of motion and the pain is really interfering with her ability perform activities of daily living such as cooking and cleaning. Patient does even state that it is affecting her sleeping. Patient does feel like her right knee is hurting even because she is having to compensate the way she walks. Today she does present with a brace on the left knee. Patient did previously have a left intra-articular knee injection in July that did provide 90% improvement. Patient would like to see about getting scheduled for a repeat injection as it did significantly help. Patient does state in the past she was told that she was pretty much aorl-ob-tceu her Braxton has been reviewed and is appropriate. Review of Systems: General: No recent weight changes, no fever, no sleep disturbances Respiratory: No cough, no shortness of air, no recurring pulmonary infections Cardiovascular/peripheral vascular: No chest pain, no palpitations, no edema, no shortness of breath Gastrointestinal: No new onset incontinence, normal bowel movements reported Genitourinary: No new onset incontinence Musculoskeletal: Left knee pain Psychiatric: [Normal mood/affect] Neurological: [Denies weakness in extremities], [denies balance issues] Pain at rest (0-10 scale): 10 Objective Objective:: Physical Exam: General: Alert and oriented x3, no acute distress, pleasant and cooperative Lungs: Respirations even and unlabored, symmetrical chest expansion Eyes: PERRL Musculoskeletal: Flexion and extension of left knee somewhat guarded secondary to pain, [antalgic gait noted] Neurological: Speech clear, no gross sensory deficit Has patient had previous pain injection?: No Conservative treatment options previously tried: Home exercise plan Length of treatment: Longer than 12 weeks Meds Home Medications and Allergies Home Medications ?Medication ?Instructions ?Recorded ?Confirmed ?Type aspirin 81 mg chewable tablet 81 mg PO DAILY Blood Thinner 01/14/24 09/29/24 History atorvastatin 20 mg tablet 20 mg PO DAILY Cholesterol 01/14/24 09/29/24 History cyclobenzaprine 10 mg tablet 10 mg PO BID Pain 01/14/24 09/29/24 History diclofenac sodium 1 % topical gel 1 - 2 g topical BID Pain 01/14/24 09/29/24 History duloxetine 60 mg capsule,delayed 60 mg PO DAILY MOOD 01/14/24 09/29/24 History release gabapentin 300 mg capsule 300 mg PO DIRECTED Pain 01/14/24 09/29/24 History hydrochlorothiazide 25 mg tablet 12.5 mg PO DAILY Fluid 01/14/24 09/29/24 History metformin 500 mg tablet,extended 1,000 mg PO DAILY Diabetes 01/14/24 09/29/24 History release 24 hr omeprazole 20 mg capsule,delayed 20 mg PO DAILY STOMACH 01/14/24 09/29/24 History release semaglutide 0.25 mg or 0.5 mg (2 0.25 - 0.5 mg SQ DIRECTED 01/14/24 09/29/24 History mg/3 mL) subcutaneous pen injector Diabetes (Ozempic) New Prescriptions to Start Prescriptions: Allergies Allergy/AdvReac Type Severity Reaction Status Date / Time No Known Allergies Allergy Verified 06/17/24 09:49 Assessment and Plan *Assessment and plan (1) Left knee pain: Status: Acute Category: Medical Code(s): M25.562 - Pain in left knee Plan Patient is experiencing worsening pain with very limited range of motion in her left knee. I did discuss with her the risk and benefits of repeat intra-articular injection and she would like to proceed forward with this plan of care. Patient has tried and failed conservative therapy including oral medication, heat and ice, topicals, at home stretching exercise for longer than 12 weeks. Patient has had chronic knee pain for longer than 6 months. Patient has been evaluated by orthopedics in the past and was told at that time she was not a surgical candidate however was going towards [id number]. Patient had 90% improvement with her last intra-articular injection in July and did feel like it at least eased it down for about 2 months. Patient will be scheduled for a left intra-articular injection without fluoroscopic or ultrasound guidance. I did also discuss with the patient that it has been a little a while since she has had any updated imaging of her left knee. I will put an x-ray order in today and that we will plan on ordering advanced imaging of an MRI in future. Patient is agreeable to this option. Patient has been instructed to contact the clinic with any concerns before the next appointment. Dr. Sanchez has reviewed this note and agrees with this plan of care. This note was dictated using voice recognition software and make contain errors or omissions. All injections are used with Lidocaine, Bupivacaine and dexamethasone. Occasionally urine drug screen is needed to verify patient's compliance with our office pain contract. This is ordered based off specific treatments related to chronic pain with the potential to abuse certain medications.
[2024-10-13 14:50] VITALS: BP 124/78; PULSE 66; RESP 18; O2SAT 96; BMI 30.4
== END 2024-10-13 23:59 | disposition home or self-care (01) ==
PROVIDERS: PCP Family Medicine; Visit Provider Nurse Practitioner Family
DX: M25.562 Pain in left knee (principal)
CPT/HCPCS: 99212; G0463

== ENCOUNTER 2024-10-18 10:48 | Outpatient (CLI) | payer OTHER, SELFPAY ==
--- OUTSIDE RECORDS SUMMARY | 2024-08-26 08:15 | XMS_ITS | Encounter Summary ---
Author Organization [facility] [place] [address] Care Team Providers Care Engraver Optical Frames Name Role Phone Moise Mares MD Primary Care Provider [phone] Yu Mullen MD Unavailable Reason for Visit * Reason Comments Follow-up Regarding Brooke santana Encounter Details Date Type Department Care Team (Late Contact Info) Description 08/26/2024 8:15 AM EDT Office Visit [facility] [place] [address] [place] [address] Moise Mares MD [address] [place] [address] [place] [address] Type 2 diabetes mellitus with hyperglycemia, [...] Date Recorded PHQ-2 Total Score 0 05/19/2024 [facility] [place] of Occupat ional Health - Occupational Stress [...] 08/26/2024 5:35 PM EDT [facility] Est. Avg Glucose 137 mg/dL 08/26/2024 5:35 PM EDT [facility] Blood VENOUS BLOOD / Unknown Venipuncture / Unknown 08/26/2024 8:35 AM EDT 08/26/2024 8:35 AM EDT Narrative [facility] - 08/26/2024 5:35 PM EDT REFERENCE [...] ORDERABLES Final Res ult [facility] [address] [facility] , [place] [address] * (ABNORMAL) BASIC METABOLIC PANEL (08/26/2024 8:35 AM EDT) Sodium 138 136 - 145 mmol/L 08/26/2024 5:23 PM EDT [facility] Potassium 4.2 3.5 - 5.0 mmol/L 08/26/2024 5:23 PM EDT [facility] Chloride 105 98 - 107 mmol/L 08/26/2024 5:23 PM EDT [facility] Total CO2 25 22 - 29 mmol/L 08/26/2024 5:23 PM EDT [facility] Anion Gap 8 7 - 16 mmol/L 08/26/2024 5:23 PM EDT [facility] Calcium 9.5 8.8 - 10.4 mg/dL 08/26/2024 5:23 PM EDT [facility] Glucose Lvl 135(H) 70 - 99 mg/dL 08/26/2024 5:23 PM EDT [facility] BUN 10 8 - 23 mg/dL 08/26/2024 5:23 PM EDT [facility] Creatinine 0.99 0.51 - 1.30 mg/dL 08/26/2024 5:23 PM EDT [employer] eGFR (CKD-EPIcr 2020) 65 >=60 mL/min/1.7 3 m2 08/26/2024 5:23 PM EDT [employer] Comment:Estimated GFR was ca lculated using the CKD-EPIcr (2020) equation refit without race. The equation is recommended by the National Kidney Foundation - [place] Society of Nephrology Task Force. Blood VENOUS BLOOD / Unknown Venipuncture / Unknown 08/26/2024 8:35 AM EDT 08/26/2024 8:35 AM EDT us Moise Mares MD CHEMISTRY ORDERABLES Final Res ult [employer] [address] [facility] , [place] [address] documented in this encounter Visit Diagnoses Diagnosis [...] 5 added in this encounter Care Teams Engraver Optical Frames Relationship Specialty Start Date End Date Moise Mares MD [address] [place] [address] [address] [place], [place] [address] PCP - General Family Medicine 07/10/22 Yu Mullen MD [address] [place] [address] CELENA RENÉE [place] [address] Medical Oncologist Internal Medicine-Hematology and Oncology 08/07/23 documented as of this encounter
--- OUTSIDE RECORDS SUMMARY | 2024-09-03 10:10 | XMS_ITS | Encounter Summary ---
Author Organization [place] [address] Care Team Providers Care Stunt Man Name Role Phone Moise Mares MD Primary Care Provider [phone] Yu Mullen MD Unavailable [phone] Encounter Details Date Type Department Care Team (Late st Contact Info) Description 09/03/2024 10:10 AM EDT Ancillary Procedure [facility]P Podiatry [place] [address] [place] [address] [place] [phone] [place], [facility] [address] [place] [address] [place] [phone] Post-op pain Social History Tobacco Use Types Packs/Day Years [...] Date Recorded PHQ-2 Total Score 0 05/19/2024 [facility] [place] of Occupat ional Health - Occupational Stress [...] Procedure Name Priority Date/Time Associated Diagnosis Comments XR FOOT RIGHT AP LATERAL AND OBLIQUE STANDING Routine 09/03/2024 10:13 AM EDT Post-op pain documented in this encounter Results * XR FOOT RIGHT AP LATERAL AND OBLIQUE STANDING (09/03/2024 10:13 AM EDT) Anatomical Region Laterality Modality Foot Radiographic Ethel ging Narrative 09/04/2024 12:40 PM EDT 3 views right foot History: pain to right foot. Previous surgery Findings: No fractures or dislocations noted. No retrograde movement of the fixation. Decrease in ankle joint. Infracalcaneal and traction spur noted. [place] Javier Kory DPM IMG DIAGNOSTIC IMAGING ORD ERABLES Final Result documented in this encounter Visit Diagnoses Diagnosis Post-op pain Other acute postoperative pain documented in this encounter Care Teams Stunt Man Relationship Specialty Start Date End Date Moise Mares MD [address] [facility] [address] [place] [id number] PCP - General Family Medicine 07/10/22 Yu Mullen MD [address] [facility] [place] [id number] Medical Oncologist Internal Medicine-Hematology and Oncology 08/07/23 documented as of this encounter
--- OUTSIDE RECORDS SUMMARY | 2024-09-03 10:15 | XMS_ITS | Encounter Summary ---
Author Organization [place] [address] Care Team Providers Care Hotel Server Name Role Phone Moise Mares MD Primary Care Provider [phone] Yu Mullen MD Unavailable [phone] Reason for Referral * In Office Procedure (Routine) - Authorization Not Needed Specialty Diagnoses / Procedures Referred By Alexia gonzalez Referred To Contact Diagnoses Arthritis of right foot Arthritis of right ankle Procedures [place] ARTHROCENTESIS ASPIR&/INJ INTERM JT/BURS W/O US [place] D[facility] [address] [address] Phone: tel: fax: Referral ID Status Reason Start Date Expiration Date Visits Requested Visits Authorized [id number] Authorization Not Needed 09/04/2024 09/04/2025 1 1 Reason for Visit * Reason Comments Foot Pain right foot Encounter Details Date Type Department Care Team (Late st Contact Info) Description 09/03/2024 10:15 AM EDT Office Visit SEP Podiatry [address] [place] [phone] [place] DPM [address] [facility] [place] [address] [place] [phone] Post-op pain (Primary Dx); Arthritis of [...] Date Recorded PHQ-2 Total Score 0 05/19/2024 [facility] [place] of Occupat ional Health - Occupational Stress [...] DAY 100 Tablet 2 Blood Sugar Diagnostic [facility] 1 Strip by [facility].(Non-Drug; Combo Route) route daily. 100 Each 2 [...] daily as needed. 90 Tablet 0 Insulin [place], Disposable, (BD ULTRA-FINE MINI PEN NEEDLE) 31 gauge x 3/16 [facility] Needle Subcutaneous (Inject under the skin) 1 Applicator once a week. 30 Each 2 Lancets [facility] 1 Each by [facility].(Non-Drug; Combo Route) route daily. 100 Each 2 [...] 5 mg Arthritis of right foot - [place] ARTHROCENTESIS ASPIR&/INJ INTERM JT/BURS W/O US Arthritis of right ankle - [place] ARTHROCENTESIS ASPIR&/INJ INTERM JT/BURS W/O US Discussed [...] Type Priority Associated Diagnoses Orde r Schedule [place] ARTHROCENTESIS ASPIR&/INJ INTERM JT/BURS W/O US [place] Charge Routine Arthritis of right foot Arthritis [...] mg documented in this encounter Care Teams Hotel Server Relationship Specialty Start Date End Date Moise Mares MD [address] [place] [address] DR [place] [address] PCP - General Family Medicine 07/10/22 Yu Mullen MD [address] [place] [address] CELENA CHINCHILLA [place] [address] Medical Oncologist Internal Medicine-Hematology and Oncology 08/07/23 documented as of this encounter
--- NOTE | 2024-10-18 10:51 | XR_ITS ---
PROCEDURE INFORMATION: Exam: XR Left Knee Exam date and time: 10/18/2024 10:56 AM Age: 58 years old Clinical indication: Pain; Knee; Left; Prior surgery; Surgery date: 6+ months; Surgery type: Meniscus repair; Additional info: Left knee pain TECHNIQUE: Imaging protocol: Radiologic exam of the left knee. Views: 3 views. COMPARISON: No relevant prior studies available. FINDINGS: Bones/joints: Joint space narrowing with chondrocalcinosis. No evidence of fracture or dislocation. No joint effusion. No hypertrophic spurring Soft tissues: Normal. IMPRESSION: Joint space narrowing with chondrocalcinosis. No acute process
--- OUTSIDE RECORDS SUMMARY | 2024-10-18 10:52 | XMS_ITS | Encounter Summary ---
Author Organization [place] [address] Care Team Providers Care Head Knitting Machine Fixer Name Role Phone Moise Mares MD Primary Care Provider [phone] Yu Mullen MD Unavailable [phone] Reason for Visit * Reason Onset Date Comments Medication Refill 10/03/2024 Encounter Details Date Type Department Care Team (Late st Contact Info) Description 10/03/2024 Refill SEP Neurology [facility] [address] [place] [address] Wendi Villalta MD [address] [place] [place] [address] Medication Refill Social History Tobacco Use Types [...] Date Recorded PHQ-2 Total Score 0 05/19/2024 [facility] of Occupat ional Health - Occupational Stress [...] On track( 2:44 PM EDT) No Selin sEcoto RN Keeping carbs at 30-45g per meal, [...] documented as of this encounter Care Teams Head Knitting Machine Fixer Relationship Specialty Start Date End Date Moise Mares MD [address] [place] [address] [place] [id number] PCP - General Family Medicine 07/10/22 Yu Mullen MD [address] [place] [address] [place] [address] Medical Oncologist Internal Medicine-Hematology and Oncology 08/07/23 documented as of this encounter
--- OUTSIDE RECORDS SUMMARY | 2024-10-18 10:52 | XMS_ITS | Encounter Summary ---
Author Organization [place] [address] Care Team Providers Care Environmental Research Scientist Name Role Phone Moise Mares MD Primary Care Provider [phone] Yu Mullen MD Unavailable [phone] Reason for Visit * Reason Comments Medication Refill Encounter Details Date Type Department Care Team (Late Contact Info) Description 09/04/2024 Refill SEP Neurology [facility] [address] [place] [address] Wendi Villalta MD [address] [place] [address] Medication Refill Social History Tobacco Use Types [...] Score 0 05/19/2024 [facility] [place] of Occupat ional Health - Occupational Stress [...] office visit: f/u in 1 year - 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
--- OUTSIDE RECORDS SUMMARY | 2024-10-18 10:52 | XMS_ITS | Encounter Summary ---
Author Organization [place] [address] Care Team Providers Care Carton Marker Machine Name Role Phone Moise Mares MD Primary Care Provider [phone] Yu Mullen MD Unavailable [phone] Reason for Referral * Medication Prior Authorization - Closed Specialty Diagnoses / Procedures Referred By Contac t Referred To Contact Diagnoses Neuropathy Wendi Villalta MD [address] [place] [address] Phone: tel: fax: Referral ID Status Reason Start Date Expiration Date Visits Re quested Visits Authorized [id number] Closed 1 1 Reason for Visit * Reason Onset Date Comments Medication Refill 10/11/2024 Encounter Details Date Type Department Care Team (Late st Contact Info) Description 10/11/2024 Refill SEP Neurology [facility] [address] [place] [address] Wendi Villalta MD [address] [place] [address] Medication Refill Social History Tobacco Use Types [...] Date Recorded PHQ-2 Total Score 0 05/19/2024 [facility] of Occupat ional Health - Occupational Stress [...] CapsuleIndications :Neuropathy Take 1 Capsule by mouth 3 times daily. 90 Capsule 5 10/15/2024 documented in this encounter Miscellaneous Notes * Telephone Encounter - Selin Navarro MA - 10/14/2024 3:44 PM EDT Per changed to Pregabalin 100 mg TID * Telephone Encounter - Wendi Villalta MD - 10/14/2024 8:34 AM EDT Is she finding it is not working or she having side effects, there is room to increase or make adjustments if it is just a subtherapeutic response * Telephone Encounter - Selin Navarro MA - 10/14/2024 7:36 AM EDT Patient would like to go back to Gabapentin and stop taking the Pregabalin. Please advise documented in this encounter Plan of Treatment [...] Start Date End Da te pregabalin (LYRICA) 100 mg Oral CapsuleIndications:Neuro usman Take 1 Capsule by mouth 2 times daily. Reorder 10/06/2024 10/14/2024 documented as of this encounter Care Teams Carton Marker Machine Relationship Specialty Start Date End Date Moise Mares MD [address] [place] [address] [address] [place], [place] [id number] PCP - General Family Medicine 07/10/22 Yu Mullen MD [address] [place] [address], [place] [id number] Medical Oncologist Internal Medicine-Hematology and Oncology 08/07/23 documented as of this encounter
--- OUTSIDE RECORDS SUMMARY | 2024-10-18 10:53 | XMS_ITS | Clinical Summary ---
Author Organization [facility] Address [address] [place] [address] Care Team Providers Care Wood Craftsman Name Role Phone Pcp, No Primary Care [...] 12/26/2008 UKY-Zoster Vaccines (1 of 2) 12/26/2013 [id number] Vaccine ( season) 2023 11/28/2022, 02/01/2021, 06/01/2020, [...] patient's age to complete this topic Insurance [facility] Care Teams Wood Craftsman Relationship Specialty Start Date End Date Pcp, [place] [address] PCP - General Family Medicine 11/20/23
--- OUTSIDE RECORDS SUMMARY | 2024-10-18 10:53 | XMS_ITS | Encounter Summary ---
Author Organization [place] [address] Care Team Providers Care Cell Changer Name Role Phone Moise Mares MD Primary Care Provider [phone] Yu Mullen MD Unavailable [phone] Reason for Visit * Reason Onset Date Comments Other 09/01/2024 Foot swelling Encounter Details Date Type Department Care Team (Late st Contact Info) Description 09/01/2024 Telephone SEP Podiatry [place] [address] [place] [address] [place] [address] Moise Anglin, [facility] [address] [facility] [address] [place] [address] Other (Foot swelling) Social History Tobacco Use [...] Date Recorded PHQ-2 Total Score 0 05/19/2024 [facility] [place] of Occupat ional Health - Occupational Stress [...] on filedocumented in this encounter Care Teams Cell Changer Relationship Specialty Start Date End Date Moise Mares MD [address] [place] [address] [address] [place] [id number] PCP - General Family Medicine 07/10/22 Yu Mullen MD [address] [place] [address] [place] [address] Medical Oncologist Internal Medicine-Hematology and Oncology 08/07/23 documented as of this encounter
--- OUTSIDE RECORDS SUMMARY | 2024-10-18 10:53 | XMS_ITS | Encounter Summary ---
Author Organization [place] [address] Care Team Providers Care Systems Accountant Name Role Phone Moise Mares MD Primary Care Provider [phone] Yu Mullen MD Unavailable [phone] Encounter Details Date Type Department Care Team (Late st Contact Info) Description 08/28/2024 Results Follow-Up [facility] [place] [address] [place] [address] Moise Mares MD [address] [place] [address] [place] [address] BASIC METABOLIC PANEL, HEMOGLOBIN A1C Social [...] Date Recorded PHQ-2 Total Score 0 05/19/2024 [facility] [place] of Occupat ional Health - Occupational Stress [...] on filedocumented in this encounter Care Teams Systems Accountant Relationship Specialty Start Date End Date Moise Mares MD [address] [place] [address] [place] [address] PCP - General Family Medicine 07/10/22 Yu Mullen MD [address] [place] [address] Medical Oncologist Internal Medicine-Hematology and Oncology 08/07/23 documented as of this encounter
--- OUTSIDE RECORDS SUMMARY | 2024-10-18 10:53 | XMS_ITS | Encounter Summary ---
Author Organization [facility] [place] [address] Care Team Providers Care High Lighter Name Role Phone Moise Mares MD Primary Care Provider [phone] Yu Mullen MD Unavailable [phone] Encounter Details Date Type Department Care Team [...] Date Recorded PHQ-2 Total Score 0 05/19/2024 [facility] [place] of Occupat ional Health - Occupational Stress [...] filedocumented in this encounter Care Teams High Lighter Relationship Specialty Start Date End Date Moise Mares MD [address] [place] [address] [place] [address] PCP - General Family Medicine 07/10/22 Yu Mullen MD [address] [place] [address] [place] [id number] Medical Oncologist Internal Medicine-Hematology and Oncology 08/07/23 documented as of this encounter
--- OUTSIDE RECORDS SUMMARY | 2024-10-18 10:53 | XMS_ITS | Encounter Summary ---
Author Organization [place] [address] Care Team Providers Care Imaging Administrator Name Role Phone Moise Mares MD Primary Care Provider [phone] Yu Mullen MD Unavailable [phone] Reason for Visit * Reason Onset Date Comments Medication Refill 07/28/2022 Encounter Details Date Type Department Care Team (Late st Contact Info) Description 07/28/2022 Refill SEP Neurology [facility] [address] [place] [address] Wendi Villalta MD [address] [place] [address] Medication Refill Social History Tobacco [...] Date Recorded PHQ-2 Total Score 0 11/02/2021 [facility] [employer] of Occupat ional Health - Occupational Stress [...] on filedocumented in this encounter Care Teams Imaging Administrator Relationship Specialty Start Date End Date Moise Mares MD [address] [place] [address] DR [place], [place] [address] PCP - General Family Medicine 07/10/22 Yu Mullen MD [address] [place] [address] [place] [id number] Medical Oncologist Internal Medicine-Hematology and Oncology 08/07/23 documented as of this encounter
--- OUTSIDE RECORDS SUMMARY | 2024-10-18 10:53 | XMS_ITS | Clinical Summary ---
Author Organization [facility] Address [address] [place] [address] Phone Care Team Providers Care Shaping Machine Tender Name Role Phone Moise Mares MD Primary Care Provider Yu Mullen MD Unavailable [phone] Allergies No known active allergies Medications * This document contains information received from the source organization and may not represent a complete record from that organization. cyanocobalamin 1,000 mcg tabletIndications: Vitamin B12 deficiency Take 1 Tab by mouth daily. 2 08/21/19 14 Active cholecalciferol, vitamin D3, 1,000 unit Oral Tablet Take 1 Tab by mouth daily. Active Lancets [facility] [place] MiscIndications:Ne wly diagnosed diabetes (HCC) 1 Each by [facility] [place]Non-Drug; Combo Route) route daily. 100 Each 2 11/17/19 21 Active Blood Sugar Diagnostic [facility] [place] StripIndications:N ewly diagnosed diabetes (HCC) 1 Strip by [facility] [place]Non-Drug; Combo Route) route daily. [...] needed. 90 Tablet 09/29/19 23 Active Insulin [place], Disposable, (BD ULTRA-FINE MINI PEN NEEDLE) 31 gauge x 05/25 Misc NeedleIndications: Type 2 diabetes mellitus with hyperglycemia, without long-term current use of insulin ([facility]) Subcutaneous (Inject under the skin) [...] hyperglycemia, without long-term current use of insulin ([facility]) Take 2 Tablets by mouth [...] hyperglycemia, without long-term current use of insulin ([facility]),Family history of coronary artery disease TAKE 1 TABLET BY MOUTH EVERY DAY 100 Tablet 2 04/09/19 25 Active dapagliflozin propanediol (FARXIGA) 10 mg Oral TabletIndications: Type 2 diabetes mellitus with hyperglycemia, without long-term current use of insulin ([facility]),Stage 3a chronic kidney disease (HCC) [...] mouth 3 times daily. 90 Capsule 5 10/16/19 25 Active Active Problems Problem Noted Date [...] Overview (02/13/2019): Pt's mom (CABG) , dad (MA), and brother (MA) Pt with neg nuclear GXT 08/2012 Neg [...] Type Department Care Team Description 10/11/2024 Refill [facility] Neurology [facility] [address] [place] [address] Wendi Villalta MD Medication Refill 10/03/2024 Refill [facility] Neurology [facility] [address] [place] [address] Wendi Villalta MD Medication Refill 09/04/2024 Refill [facility] Neurology [facility] [address] [place] [address] Wendi Villalta MD Medication Refill 09/03/2024 10:15 AM EDT Office Visit [facility] [address] [id number] [place], DPDomenico Post-op pain (Primary Dx); Arthritis of right foot; Arthritis of right ankle 09/03/2024 10:10 AM EDT Ancillary Procedure [facility] [address] [address] [place], DPM Post-op pain 09/03/2024 Travel 09/01/2024 Telephone [facility] [address] [address] Moise Anglin, DPM Other (Foot swelling) 08/28/2024 Results Follow-Up [facility] Mac [address] [place] [address] Moise Mares MD BASIC METABOLIC PANEL, HEMOGLOBIN A1C 08/26/2024 8:15 AM EDT Office Visit [facility] [address] [place] [address] Moise Mares MD Type 2 diabetes mellitus with hyperglycemia, without long-term current use of insulin (HCC) (Primary Dx); Stage 3a chronic kidney disease (HCC) 08/15/[address] [place] [address] Moise Mares MD Medication Refill 07/31/2024 Orders Only SEP Mac [address] [place], [place] [address] Moise Mares MD Type 2 diabetes mellitus with hyperglycemia, without long-term current use of insulin (HCC) (Primary Dx) 07/29/2024 Refill SEP [facility] [address] [place] [address] Moise Mares MD Medication Refill from Last [...] MEDIAL MENISCECTOMY; Surgeon: Bladimir [place] MD; Location: [facility] OR; Service: Orthopedics KNEE ARTHROSCOPY 09/29/2019 Knee/Left LEFT KNEE ARTHROSCOPY, PARTIAL MEDIAL MENISCECTOMY; Surgeon: Bladimir [place] MD; Location: [facility]; Service: Orthopedics ARTHRODESIS 02/16/2023 Foot/Ankle/Right Right foot subtalar joint arthrodesis; Surgeon: Moise Anglin DPM; Location: [facility]; Service: Orthopedics Medical devices [...] Jamie CABG Diabetes Father Heart Disease Father MA as complica tion after lung surgery High [...] Maternal Grandfather Maternal Grandmother Mother (Age 65) MA Paternal Aunt 1 Paternal Aunt 2 Alive [...] Date Recorded PHQ-2 Total Score 0 05/19/2024 [facility] [place] of Occupat ional Health - Occupational Stress [...] Additional history exists Hemoglobin A1c 02/25/2025 08/26/2024, 03, 05/19/2024, Additional history exists Kidney Health: uACR [...] Ng MD Medical Devices Implanted Type Area Manager Utilization Management Device Identifier Shelf Expiration Date Model / Serial / Lot Plate Volar Intermediate Right 10 Hole Extra Short - [id number] Implanted:Qty: 1 on 11/07/2016 by Fabio Aquino MD at [facility] Right: Wrist DIANA:ORTHOPED ICS [id number] / / Screw Locking Thread 2.7mm/L16mm - [id number] Implanted:Qty: 1 on 11/07/2016 by Fabio Aquino MD at [facility] Right: Wrist DIANA:ORTHOPED ICS [id number] / / Screw Locking Full Thread T8 2.7 Mm X L18 Mm - [id number] Implanted:Qty: 1 on 11/07/2016 by Fabio Aquino MD at [facility] Right: Wrist DIANA:ORTHOPED ICS [id number] / / Screw Locking T8 Full Thread 2.8mm/L20mm - [id number] Implanted:Qty: 2 on 11/07/2016 by Fabio Aquino MD at [facility] Right: Wrist DIANA:ORTHOPED ICS [id number] / / Screw Bone T8 Full Thread 2.7 Mm X L14 Mm - [id number] Implanted:Qty: 1 on 11/07/2016 by Fabio Aquino MD at [facility] Right: Wrist DIANA:ORTHOPED ICS [id number] / / Bone Screw T8 Full Thread 2.7mm/L16mm - [id number] Implanted:Qty: 2 on 11/07/2016 by Fabio Aquino MD at [facility] Right: Wrist DIANA:ORTHOPED ICS [id number] / / Bone Screw T8 Full Thread 2.7mm/L20mm - [id number] Implanted:Qty: 1 on 11/07/2016 by Fabio Aquino MD at [facility] Right: Wrist DIANA:ORTHOPED ICS [id number] / / Screw Bone Fixos Titanium Short Thread L70 Mm Od7 Mm Midfoot - [id number] Implanted:Qty: 2 on 02/16/2023 by Moise Anglin DPM at [facility] Right: Foot DIANA:ORTHOPED ICS [id number] / / Kit Augment Injectable 3.0cc - [id number] Implanted:Qty: 1 on 02/16/2023 by Moise Anglin DPM at [facility] Right: Foot [email or web address] TECH 07/07/2025 [id number] / / [id number] Graft Bone Putty Tensix Dbm Crush Mix 2.5cc Prehydrated W/ C - [id number] Implanted:Qty: 1 on 02/16/2023 by Moise Anglin, DPM at [facility] Right: Foot [email or web address] TECH 05/10/2023 [id number]-[id number] / / [id number] Procedures Procedure Name Priority Date/Time Associated [...] Infracalcaneal and traction spur noted. Rio Javier Miluizh DPM IMG DIAGNOSTIC IMAGING ORD ERABLES Final Result * (ABNORMAL) HEMOGLOBIN A1C (08/26/2024 8:35 AM EDT) Pathologist [facility] Hgb A1C 6.4(H) 4.2 - 5.6 % 08/26/2024 5:35 PM EDT [facility] Est. Avg Glucose 137 mg/dL 08/26/2024 5:[address] [facility], [facility] Blood VENOUS BLOOD / Unknown Venipuncture / Unknown 08/26/2024 8:35 AM EDT 08/26/2024 8:35 AM EDT Narrative [facility] - 08/26/2024 5:35 PM EDT REFERENCE RANGE: Normal: 4.0-5.6% Pre-diabetes: 5.7-6.4% Provisional diagnosis of diabetes: >6.4% Hgb F>10% and anything which shortens red cell survival, such as hemolytic anemia, or unstable hemoglobin variants such as HbSS, HbSC, or HbCC, will lower the HbA1c value associated with a given level of glycemic control. Moise Mares MD CHEMISTRY ORDERABLES Final Res ult [facility] [address] [facility] , [address] [place] [phone] * (ABNORMAL) BASIC METABOLIC PANEL (08/26/2024 8:35 AM EDT) Pathologist [facility] Sodium 138 136 - 145 mmol/L 08/26/2024 5:23 PM EDT [facility] Potassium 4.2 3.5 - 5.0 mmol/L 08/26/2024 5:23 PM EDT [facility] Chloride 105 98 - 107 mmol/L 08/26/2024 5:23 PM EDT [facility] Total CO2 25 22 - 29 mmol/L 08/26/2024 5:23 PM EDT [facility] Anion Gap 8 7 - 16 mmol/L 08/26/2024 5:23 PM EDT [facility] Calcium 9.5 8.8 - 10.4 mg/dL 08/26/2024 5:[address] [facility], [facility] Glucose Lvl 135(H) 70 - 99 mg/dL 08/26/2024 5:23 PM EDT [facility], [facility] BUN 10 8 - 23 mg/dL 08/26/2024 5:23 PM EDT [facility], [facility] Creatinine 0.99 0.51 - 1.30 mg/dL 08/26/2024 5:23 PM EDT [facility], [facility] eGFR (CKD-EPIcr 2020) 65 >=60 mL/min/1.7 3 m2 08/26/2024 5:[address] [facility], [facility] Comment:Estimated GFR was ca lculated using the CKD-EPIcr (2020) equation refit without race. The equation is recommended by the National Kidney Foundation - [place] Society of Nephrology Task Force. Blood VENOUS BLOOD / Unknown Venipuncture / Unknown 08/26/2024 8:35 AM EDT 08/26/2024 8:35 AM EDT us Moise Mares MD CHEMISTRY ORDERABLES Final Res ult [facility], [facility] [address] [facility] , [place] [address] * LIPID SCREEN (05/19/2024 3:53 PM EDT) Cholesterol 120 <200 mg/dL 05/19/2024 9:[address] [facility], [facility] Comment: < 200 Desirable 200 - 239 Borderline High >= 240 High Triglyceride 141 <150 mg/dL 05/19/2024 9:[address] [facility], [facility] Comment: < 150 Normal 150 - 199 Borderline High 200 - 499 High >= 500 Very High HDL 43 >=40 mg/dL 05/19/2024 9:[address] [facility], [facility] Comment: > 60 Optimal 40 - 60 Acceptable < 40 Low LDL Calculated 53 <100 mg/dL 05/19/2024 9:[address] [facility], [facility] Comment: < 100 Optimal 100 - 129 Near or above optimal 130 - 159 Borderline High 160 - 189 High >= 190 Very High The National Institutes of Health (NIH) equation is used for all lipid panels that report calculated LDL (LDL-C). Non-HDL-C Calculated 77 <=129 mg/dL 05/19/2024 9:[address] [facility], [facility] Comment: <130 Desirable 130-159 Above Desirable 160-189 Borderline High 190-219 High >= 220 Very High Fasting Specimen? No None 025 9:04 PM EDT [facility] Blood VENOUS BLOOD / Unknown Venipuncture / Unknown 05/19/2024 3:53 PM EDT 05/19/2024 3:53 PM EDT Moise Mares MD CHEMISTRY ORDERABLES Final Res ult Performing Organization Address [facility] Co de Phone Number [facility] [address] , [place] [phone] [facility] [address] [place], [place] [phone] * MICROALBUMIN/CREATININE RATIO URINE (05/19/2024 3:42 PM EDT) Urine Microalb 46.5 mg/L 05/19/2024 10:[address] [facility] Urine Creatinine 154.0 mg/dL 05/19/2024 10:[address] [facility], [facility] Ur Microalb/Creat 30 0 - 30 mg/g 05/19/2024 10:25 PM EDT [facility] Urine STRUCTURE OF URINARY TRACT PROPER / Unknown 05/19/2024 3:42 PM EDT 05/19/2024 3:42 PM EDT Moise Mares MD URINE ORDERABLES Final Result Performing Organization Address [facility]/ZIP Co de Phone Number [facility] [address] [facility] , [address] [place] [phone] [facility] [address] [place], [place] [phone] * (ABNORMAL) MM MAMMO DIGITAL DANK SCREEN BILAT (03/24/2024 10:23 AM EST) Anatomical Region Laterality Modality Breast Bilateral Mammography 03/24/2024 10:2 3 AM EST Impressions 03/25/2024 9:32 AM EST Incomplete: Need additional imaging evaluation ([id number]) RECOMMENDATION: Additional Imaging Breast Ultrasound Right COMMENTS: Narrative 03/25/2024 9:32 AM EST EXAM: MM MAMMO DIGITAL DANK SCREEN BILAT EXAM DATE: 03/24/2024 10:23 AM INDICATION: Z12.31-Encounter for screening mammogram for malignant neoplasm of [id number]-CM COMPARISON STUDIES: Compared with prior studies, the most recent being 03/13/2022 MM MAMMO DIGITAL DANK DIAGN BILAT at [facility] 01/11/2021 MM MAMMO DIGITAL DANK SCREEN BILAT at [facility] 08/07/2017 MM MAMMO DIGITAL SCREENING W CAD BILAT at [facility] TISSUE DENSITY: There are scattered areas [...] Z12.31-Encounter for screening mammogram for malignantneoplasm of [id number]-[id number]-CM COMPARISON STUDIES: Compared with prior studies, the most recent being 03/13/2022 MM MAMMO DIGITAL DANK DIAGN BILAT at [facility] 01/11/2021 MM MAMMO DIGITAL DANK SCREEN BILAT at [facility] 08/07/2017 MM MAMMO DIGITAL SCREENING W CAD BILAT at [facility] TISSUE DENSITY: There are scattered areas of fibroglandular density. FINDINGS: There is an oval circumscribed 8 mm mass in the lower innerquadrant right breast. There are no internal microcalcifications or associated distortion. There is no mammographic evidence of malignancy in the leftbreast. IMPRESSION: Incomplete: Need additional imaging evaluation ([id number]) RECOMMENDATION: Additional Imaging Breast Ultrasound Right COMMENTS: us Moise Mares MD IMG MAMMOGRAPHY ORDERABLES Fin al Result * HM DIABETES EYE EXAM (10/20/2021) Left Diabetic Retinopathy Not Present Present/Not Present SEP OFFICE Right Diabetic Retinopathy Not Present Present/Not Present SEP OFFICE us Historical Provider HEALTH MAINTENANCE Final Res ult Performing Organization Address City/[facility] de Phone Number SEP OFFICE * ACUTE HEPATITIS PANEL (08/26/2021 10:10 AM EDT) Hep Bs Ag Non-Reacti ve Non-Reacti ve 08/26/2021 3:14 PM EDT [facility] Hep B Core IgM Non-Reacti ve Non-Reacti ve 08/26/2021 3:14 PM EDT [facility] Hep A IgM Non-Reacti ve Non-Reacti ve 08/26/2021 3:14 PM EDT [facility] Hep C Ab Non-Reacti ve Non-Reacti ve 08/26/2021 3:14 PM EDT [facility] Blood VENOUS BLOOD / Unknown Venipuncture / Unknown 08/26/2021 10:10 AM EDT 08/26/2021 10:10 AM EDT Carol Ng MD CHEMISTRY ORDERABLES Final Resu lt Performing Organization Address [facility] de Phone Number [facility] [address] [place] [address] , [place] [address] * GMED COLONOSCOPY (05/01/2019 8:30 AM EST) 05/01/2019 8:30 AM EST Impressions [facility] - 05/01/2019 8:54 AM EST Polyps (2 mm to 4 mm) in the splenic flexure. (Polypectomy). Internal and external hemorrhoids. Plan: Await pathology results Colonoscopy in 5 or 10 years depending on pathology results. This section is an excerpt of the full report. us Justin El Peyton MD GI PROCEDURE ORDERABLES Fi nal Result Performing Organization Address City/State/[facility] Co de Phone Number [facility] [address] [place] [address] from Last 3 Months or Most Recently Relevant to Health Maintenance Insurance [employer] WORKERS' COMP [employer] WORKERS' COMP GENERIC WORKERS' COMP GENERIC WORKERS' COMP Advance Directives For more information, please contact: [phone] * Full Code (Latest Code Status on File) Date Activated Date Inactivated Comments 03/02/2012 6:18 AM 03/04/2012 3:12 PM Care Teams Shaping Machine Tender Relationship Specialty Start Date End Date Moise Mares MD [address] [place] [address] [place] [address] PCP - General Family Medicine 07/10/22 Yu Mullen MD [address] [place] [address] Medical Oncologist Internal Medicine-Hematology and Oncology 08/07/23
--- OUTSIDE RECORDS SUMMARY | 2024-10-18 10:53 | XMS_ITS | Encounter Summary ---
Author [place] [address] Care Team Providers Care Bathhouse Keeper Name Role Phone Carol Ng MD Primary Care Provider [phone] Selin Escoto RN Unavailable Unavailable Moise Mares MD Primary Care Provider [phone] Yu Mullen MD Unavailable [phone] Encounter Details Date Type Department Care Team (Late st Contact Info) Description 05/01/2019 Orders Only SEP Gastro CV [address] [facility] Building [address] [place] [address] Justin Delaney MD [address] [place] [address] Social History Tobacco Use Types Packs/Day Years [...] MD GI PROCEDURE ORDERABLES Fi nal Result [facility] [address] [place], [place] [phone] documented in this encounter Visit Diagnoses Not on filedocumented in this encounter Care Teams Bathhouse Keeper Relationship Specialty Start Date End Date Carol Ng MD PCP - General 07/08/10 07/09/22 Moise Mares MD [address] [place] [address] [place] [address] PCP - General Family Medicine 07/10/22 Selin Escoto, RN Rejogger 08/22/21 12/29/21 Yu Mullen MD [address] [place] [address] Medical Oncologist Internal Medicine-Hematology and Oncology 08/07/23 documented as of this encounter
--- OUTSIDE RECORDS SUMMARY | 2024-10-18 10:53 | XMS_ITS | Clinical Summary ---
Author Organization [facility] Address [facility] [address] [place] [address] Care Team Providers Care Compressor Station Engineer Name Role Phone Unavailable Primary Care Provider [...]
--- OUTSIDE RECORDS SUMMARY | 2024-10-18 10:53 | XMS_ITS | Referral Summary ---
Author Organization [facility] Address [address] [place] [address] [place] [address] Care Team Providers Care Fisher Terrapin Name Role Phone Unavailable Primary Care Provider [...]
--- OUTSIDE RECORDS SUMMARY | 2024-10-18 10:53 | XMS_ITS | Encounter Summary ---
Author Organization [place] [address] Care Team Providers Care Baking Powder Mixer Name Role Phone Carol Ng MD Primary Care Provider [phone] Selin Escoto RN Unavailable Unavailable Moise Mares MD Primary Care Provider [phone] Yu Mullen MD Unavailable [phone] Encounter Details Date Type Department Care Team (Late st Contact Info) Description 05/01/2019 Lab Requisition [facility] [place] [address] Justin Delaney MD [address] [place] [address] Encounter for screening for malignant neoplasm of [...] AM EST) CASE REPORT Surgical Pathology Case: [id number] Authorizing Provider: Justin Delaney MD Collected: 05/01/2019 0830 Ordering Location: [facility] Received: 05/01/2019 1432 Pathologist: Reggie Cabrera MD Specimen: Splenic flexure 05/02/2019 9:08 AM EST [facility] CLINICAL HISTORY Screening colon, low risk. 05/02/2019 9:08 AM EST [facility] FINAL DIAGNOSIS Splenic Flexure Colon Polyps: - Colonic Mucosa With Edema, Lymphoid Aggregates (Lymphoid Polyps). - Negative For Adenomatous Change. - Focal Early Hyperplastic Change of Mucosal Surface. 05/02/2019 9:08 AM EST [facility] at 0908 EST GROSS DESCRIPTION Received in formalin labeled with the patient s name and s plenic flexure colon polyps are multiple fragments of duncan tissue ranging from 0.3 to 0.5 cm in greatest dimension. Entirely submitted in one cassette./ ZN 05/02/2019 9:08 AM EST [facility] MICROSCOPIC DESCRIPTION Microscopic examination is performed and the findings corroborate the diagnosis. 05/02/2019 9:08 AM EST [facility] FLOW CYTOMETRY SUMMARY 05/02/2019 9:08 AM EST [facility] EMBEDDED IMAGES 05/02/2019 9:08 AM EST [facility] Tissue STRUCTURE OF LEFT COLIC FLEXURE / Unknown 05/01/2019 8:30 AM EST 05/01/2019 3:47 PM EST us Justin Todd MD PATHOLOGY ORDERABLES Final Result Performing Organization Address City/State/[facility] Co de Phone Number [facility] [address] [place], [place] [id number] [address] [address] documented in this encounter Visit Diagnoses Diagnosis Encounter for screening for malignant neoplasm of colon Special screening for malignant neoplasms, colon documented in this encounter Care Teams Baking Powder Mixer Relationship Specialty Start Date End Date Carol Ng MD PCP - General 07/08/10 07/09/22 Moise Mares MD [address] [place] [address] [place] [address] PCP - General Family Medicine 07/10/22 Selin Escoto, RN Senior Quality Technician 08/22/21 12/29/21 Yu Mullen MD [address] [place] [address] Medical Oncologist Internal Medicine-Hematology and Oncology 08/07/23 documented as of this encounter
== END 2024-10-18 23:59 | disposition home or self-care (01) ==
LOC: RAD 10:51
PROVIDERS: PCP Family Medicine; Visit Provider Nurse Practitioner Family
DX: M11.262 Other chondrocalcinosis, left knee (principal); Z98.890 Other specified postprocedural states
CPT/HCPCS: 73562

== ENCOUNTER 2024-11-18 14:07 | Day surgery (SDC) | payer OTHER, SELFPAY ==
[2024-11-18 14:25] VITALS: BP 144/94; PULSE 58; RESP 16; O2SAT 98; BMI 31.4
[2024-11-18 14:38] VITALS: BP 146/85; PULSE 65; RESP 16; O2SAT 95
[2024-11-18] MEDS: DEXAMETHASONE 10MG/ML 1ML VIAL 10 MG (14:38)
[2024-11-18] MEDS: BUPIVACAINE 0.25% 10ML INJ 25 MG IJ (14:38)
[2024-11-18] MEDS: LIDOCAINE 1% 5ML PF VIAL 5 ML (14:38)
--- NOTE | 2024-11-18 14:38 | EXP.PAIN.PRO ---
Procedure Date: 11/18/24 Time: 14:25 Anesthesiologist:: Tristan Rivera CRNA Complications:: None Pre-procedure Diagnosis:: DJD left knee. Chronic left knee pain. Post-procedure Diagnosis:: Same Indications for Procedure:: Patient is a very pleasant 58-year-old female who comes our clinic today for a left intra-articular knee injection of cortisone and local anesthetic. Patient describes left knee pain as constant, dull, aching. Patient reports left knee pain creates difficulty with ambulation. Difficulty with flexion. She rates her pain 7/10. Procedure Details:: Details of the procedure explained to the patient. The patient taken procedure room placed in the sitting position. The over the left knee was cleaned using chlorhexidine as a cleansing solution. Using a 22-gauge inch and half needle the left knee joint was accessed from the anterior lateral position. After negative aspiration 4 cc of 1% lidocaine +4 cc of 0.25% Marcaine and 10 mg of dexamethasone was injected. Patient tolerated procedure without difficulty. There are no complications. Plan and Disposition:: Patient was discharged without incident.
[2024-11-18 14:42] VITALS: BP 149/93; PULSE 73; RESP 18; O2SAT 97
[2024-11-18 14:43] VITALS: BP 149/93; PULSE 73; RESP 18; O2SAT 97
== END 2024-11-18 14:38 | disposition home or self-care (01) ==
LOC: SC.PAINP 14:08
PROVIDERS: PCP Family Medicine; Visit Provider Nurse Anesthetist, Certified Registered
DX: M17.12 Unilateral primary osteoarthritis, left knee (principal); G89.29 Other chronic pain; E11.22 Type 2 diabetes mellitus with diabetic chronic kidney disease; I12.9 Hypertensive chronic kidney disease with stage 1 through stage 4 chronic kidney disease, or unspecified chronic kidney disease; K21.9 Gastro-esophageal reflux disease without esophagitis; E78.5 Hyperlipidemia, unspecified; M79.7 Fibromyalgia; G43.909 Migraine, unspecified, not intractable, without status migrainosus; N18.9 Chronic kidney disease, unspecified; Z79.84 Long term (current) use of oral hypoglycemic drugs; Z79.85 Long-term (current) use of injectable non-insulin antidiabetic drugs; Z79.51 Long term (current) use of inhaled steroids; Z79.899 Other long term (current) drug therapy
CPT/HCPCS: 20610; J0665; J1100; J2003